=== PATIENT | female | born 1950 | race Caucasian/White ===

== ENCOUNTER → 2018-09-10 11:25 | Outpatient (CLI) | payer OTHER, SELFPAY ==
[2017-03-29 11:01] VITALS: BMI 34.6
[2018-09-10 14:16] LABS: Creatinine, Serum 0.96 mg/dL (0.55-1.02); EST Glomerular Filtration Rate 61 mL/min (>60); Est Glom Filt Rate - Afr Amer 74 mL/min (>60)
== END ==
PROVIDERS: Family Provider Family Medicine; PCP Family Medicine; Referring Provider Specialist; Visit Provider Specialist
DX: M54.16 Radiculopathy, lumbar region (principal)
CPT/HCPCS: 36415; 82565

== ENCOUNTER 2019-05-11 17:41 | Emergency (ER) | payer OTHER, SELFPAY ==
[2019-05-11 17:42] VITALS: BP 174/80; PULSE 70; RESP 16; TEMP 36.8; O2SAT 95; BMI 35.1
--- NOTE | 2019-05-11 18:09 | ED.DCSUM_ITS ---
- ER Visit Summary Date of Service: 05/11/19 Chief Complaint: Right leg pain, weakness, and fatigue History of Present Illness: The patient is a 69 F who presents with right leg pain that is been getting worse since yesterday. Patient states the pain is over her lower leg. Patient states it is worse with walking. Patient describes it as aching. Patient admits to some sweats at home but denies any fevers. Patient denies any chest pain or shortness of breath. Patient denies any nausea or vomiting. Patient states she feels weak all over. Physical Examination: Vital signs are stable. Patient is afebrile. Patient is in no acute distress. Oral mucosa is pink and moist. Neck is supple. Trachea is midline. There is no JVD. Heart was regular rate and rhythm. Lungs are clear and equal bilaterally. Abdomen is soft. Bowel sounds are normal. There is no tenderness. Cranial nerves II through XII are intact. There are no focal motor or sensory deficits noted. Extremities are intact. There is tenderness and edema of the right lower leg. There is some mild erythema but there is no warmth. Test Results: CBC shows a mild anemia with a hemoglobin of 11.9. Basic metabolic profile was essentially within normal limits. Urinalysis does not josé luis w any evidence of urinary tract infection. Troponin was normal. PA and lateral chest x-ray was obtained. There is no acute cardiopulmonary process. This was interpreted by the radiologist and myself. Emergency Department Course and Treatment: Patient was able to ambulate with a walker. Patient was instructed to use her walker at home. Patient was given a dose of Lovenox here. Patient was instructed to return tomorrow for an outpatient venous duplex of her right lower extremity since it was not able to be obtained here in the emergency department. Patient was instructed to follow- up with her primary care physician in 3 to 5 days. Patient and family understood and were agreeable with the plan. All questions were answered. Disposition: Discharge home Impression: Right leg pain This note was generated with Schvey dictation software. It may contain incorrect words, spelling, and punctuation that were not noted in review of the chart prior to signing ED Disposition - Plan for ED Patient: Disposition: Home or Assisted Living Diagnosis: Right leg pain Instructions: CONTUSION, Lower Extremity Referrals: Mikala Ndiaye NP-C [Primary Care Provider] - 3-5 Days
--- NOTE | 2019-05-11 18:44 | RAD_ITS ---
STUDY: X-RAY CHEST REASON FOR EXAM: Female, 69 years old. WEAKNESS TECHNIQUE: Frontal and lateral views of the chest were performed COMPARISON: None. FINDINGS: There is a rounded shell-like calcification in the right lower neck. There is no pneumonia or focal pulmonary opacities. There are linear basilar opacity, likely atelectasis and scarring.. There is no demonstrated pleural abnormality. Normal size heart. Normal mediastinum and migdalia. Normal visualized pulmonary arteries. Normal visualized aortic arch and descending thoracic aorta. There is left reverse total shoulder arthroplasty. There is no demonstrated abnormality of the visualized soft tissue structures of the upper abdomen. RAD/Chest PA and Lateral IMPRESSION: 1. No acute findings, mild atelectasis. 2. Right lower neck peripherally calcified structure, possibly related to thyroid. Refer to neck ultrasonography for further assessment. Electronically Signed: Elli Bran, at 19:18 EST Tel , Service support ,
[2019-05-11 18:50] LABS: Absolute Lymphocyte Count 2.66 X10^3/uL (0.83-4.51); Absolute Neutrophil Count 7.1 X10^3/uL (2.0-7.7); Basophil# 0.03 X10^3/uL; Basophil% 0.3 % (0-1); Eosinophils% 1.9 % (0-5); Hematocrit 37.4 % (37-47); Hemoglobin 11.9 g/dL (12.0-15.0); Lymphocyte # 2.66 X10^3/ul (4.0); Lymphocyte % 24.8 % (19-41); Mean Corp Hgb Conc 31.8 g/dL (32-36); Mean Corpuscular Hgb 28.3 pg (27.0-32.0); Mean Corpuscular Volume 88.8 fL (81-99); Mean Platelet Vol. 10.4 fl (6.2-12.0); Monocyte# 0.71 X10^3/uL; Monocyte% 6.6 % (0-10); NRBC Flagged by Analyzer 0 % (0-5); Neutrophil # 7.08 X10^3/uL (2.7-7.7); Platelet Count 349 K/mm3 (150-450); RBC Distribution Width CV 14.5 % (11.6-14.6); RBC Distribution Width SD 46.3 fl (35.1-43.9); Red Blood Count 4.21 M/mm3 (4.2-5.4); White Blood Count 10.7 K/mm3 (4.4-11.0)
[2019-05-11 19:14] LABS: ALB/GLOB Ratio 0.9 RATIO (0.9-2.4); AST(SGOT) 12 U/L (15-37); Alanine Aminotransfer ALT/SGPT 25 U/L (13-56); Albumin, Serum 3.3 g/dL (3.2-5.0); Alkaline Phosphatase 85 U/L (45-117); Anion Gap 5 (5-15); BUN 29 mg/dL (7-18); BUN/Creat Ratio 26.1 RATIO (10-20); Calcium,Total 9.4 mg/dL (8.5-10.1); Chloride 111 mmol/L (98-107); Creatinine, Serum 1.11 mg/dL (0.55-1.02); EST Glomerular Filtration Rate 52 mL/min (>60); Est Glom Filt Rate - Afr Amer 63 mL/min (>60); Globulin 3.6 g/dL (2.2-4.2); Glucose 169 mg/dL (74-106); Potassium 4.2 mmol/L (3.5-5.1); Protein, Total 6.9 g/dL (6.4-8.2); Sodium Level 143 mmol/L (136-145)
[2019-05-11 20:53] LABS: Bacteria 0 SEEN /hpf (None Seen); Mucous, Urine 0 SEEN /hpf (<or=2+); White Blood Cells 0 SEEN /hpf (0-5)
[2019-05-11 20:55] LABS: Color, Urine Yellow (Yellow); Glucose, Dipstick Normal (Normal); Ketone-Dipstick Negative (Negative); Leukocyte Esterase-Dipstick Negative /ul (Negative); Nitrite-Dipstick Negative (Negative); Occult Blood-Urine 25 /ul (Negative); Protein-Dipstick 100 mg/dl (Negative); Urine Bilirubin Dipstick Negative (Negative); Urine Clarity Sl. Cloudy (Clear); Urine Urobilinogen Normal (Normal)
[2019-05-11 21:05] LABS: Red Blood Cells-Urine 0-5 SEEN /hpf (0-5); Squamous Epithelial Cells - UA 0-5 SEEN /hpf (5-10)
[2019-05-11] MEDS: Enoxaparin 80 MG/0.8 ML Syringe SC (22:58)
[2019-05-11 23:02] VITALS: BP 144/71; PULSE 71; RESP 16; O2SAT 95
== END 2019-05-11 23:11 | disposition home or self-care (01) ==
PROVIDERS: Emergency Provider Emergency Medicine; PCP Nurse Practitioner Family
DX: M79.661 Pain in right lower leg (principal); R53.1 Weakness; R53.83 Other fatigue; I10 Essential (primary) hypertension; E11.9 Type 2 diabetes mellitus without complications; Z79.84 Long term (current) use of oral hypoglycemic drugs
CPT/HCPCS: 71046; 80053; 81001; 84484; 85025; 96372; 99285; P9612; A4216

== ENCOUNTER → 2019-05-12 12:43 | Outpatient (CLI) | payer SELFPAY, OTHER ==
[2019-05-11 17:42] VITALS: BMI 35.1
--- NOTE | 2019-05-12 12:56 | VDLE_ITS ---
Reason For Study: RLE pain RIGHT LEFT GSV is normal. CFV is compressible, spontaneous, phasic, CFV is compressible, spontaneous, phasic, competent, and demonstrates normal competent and demonstrates normal augmentation. augmentation. FV is compressible, spontaneous, phasic, competent and demonstrates normal augmentation. POP V is compressible, spontaneous, phasic, competent and demonstrates normal augmentation. T/P Trunk is compressible. PTV is compressible. RT PerV is compressible. Procedure Exam performed in department. The exam was diagnostic. A preliminary report was called and/or faxed to [facility] @ 01:25 pm. Interpretation Summary Deep veins of the right lower extremity are patent and compressible segmentally. There is no evidence of right lower extremity deep vein thrombosis. Valvular competence appears intact within the proximal deep venous system on the right . The right great saphenous vein appears patent and compressible segmentally. Ordering Physician: Pete Martinez Referring Physician: Mikala Ndiaye Performed By: Danny CHING RDCS, [place] and Student
== END ==
PROVIDERS: PCP Nurse Practitioner Family; Referring Provider Nurse Practitioner Family; Visit Provider Emergency Medicine
DX: M79.604 Pain in right leg (principal)
CPT/HCPCS: 93971

== ENCOUNTER 2020-05-18 19:22 | Inpatient (IN) | payer OTHER, SELFPAY ==
[2020-05-18 17:33] VITALS: RESP 18; BMI 40.8
[2020-05-18 17:49] VITALS: BP 160/82; PULSE 85; RESP 16; TEMP 37.2; O2SAT 94
[2020-05-18 17:55] LABS: Bedside Glucose 319 mg/dL (70-110)
[2020-05-18 18:03] VITALS: BMI 40.8
--- NOTE | 2020-05-18 20:07 | HP.PCM_ITS ---
Problem List (1) Cellulitis of foot, right Status: Acute (2) Cellulitis of great toe, right Status: Acute History of Present Illness Date of Admission: 05/18/20 Chief Complaint: Cellulitis of the right foot, cellulitis of the right great toe The patient is a 70 year old F who was directly admitted to [facility] after being seen [facility] a [facility] with complaints of swelling and redness of her right great toe and redness and warmth extending into her right foot area. Information was obtained from the patient's who was present at the time of my examination, he states that the foot has been swollen and reddened for approximately 1 to 2 weeks. He admits that they did not get her into see her director blood bank concerning this. They were sent to the emergency room for evaluation by her PCP who saw the patient in his office. Work-up in the outside emergency room revealed a white blood cell count of 13.8, chemistry profile was remarkable for glucose of 177 and a BUN of 22, lactic acid was 1.8, urinalysis was unremarkable. Patient had an x-ray of the right foot which showed degenerative changes at the tarsals and a healing fracture of the distal fibula. Patient was admitted to [place] [id number] for cellulitis of the right foot and right great toe, she will be placed on IV Unasyn, she will be seen in consultation by podiatry-I talked with Dr. Dejesus by phone tonight. Past Medical History Allergies pravastatin Adverse Reaction (Verified 05/18/20 17:51) muscle and leg pain Home Medications: Ambulatory Orders Medication Instructions Recorded Atenolol [Tenormin (beta xander)] 25 mg PO DAILY 03/13/17 Lisinopril 40 mg PO QHS 03/13/17 Pramipexole Di-HCl [Mirapex] 0.5 mg PO QHS 03/13/17 metFORMIN HCl [Glucophage] 1,000 mg PO BIDCM 03/13/17 Aspirin [Aspirin, Baby] 81 mg PO DAILY@0800 05/18/20 Furosemide [Lasix] 40 mg PO DAILY 05/18/20 Insulin NPH Hum/Reg Insulin Hm 10 units SQ DINNER 05/18/20 [Humulin 70-30 Vial] Insulin NPH Hum/Reg Insulin Hm 20 units SQ DAILY 05/18/20 [Humulin 70-30 Vial] Potassium Chloride 10 meq PO DAILY 05/18/20 Surgical History: cataract, hysterectomy, total knee arthroplasty - Right, - - Lumbar back surgery Psychiatric History: No pertinent psych hx [employer] History: No pertinent [employer] history Lives: Spouse/ Significant Other Smoking Status: Never smoker Tobacco Use: Non-smoker Alcohol: None Drugs: None - *Family History Maternal History Items: Diabetes Paternal History Items: No pertinent history Review of Systems Constitutional: Denies: Anorexia, Chills, Fever, Night Sweats, Malaise, Weakness, Weight Change, Fatigue Eyes: Denies: Cataracts, Conjunctivae Inflammation, Double vision, Drainage, Redness, Vision Change HEENT: Denies: Difficulty Swallowing, Dysphasia, Ear Pain, Hearing Changes, Nasal bleeding, Nasal Congestion, Post Nasal Drip Cardiovascular: Denies: Chest Pain, Claudication, Chest Pressure, Chest Tightness, Edema, Palpitations Respiratory: Denies: Cough, Hemoptysis, Pleuritic Pain, Shortness of Breath, Shortness of breath at rest, Shortness of breath upon exertion Gastrointestinal: Denies: Abdominal Pain, Constipation, Diarrhea, Hematemesis, Hematochezia, Nausea, Melena, Vomiting Genitourinary: Denies: Dysuria, Frequency, Hematuria, Hesitancy, Urgency Musculoskeletal: Reports: Foot Pain - Right foot and right great toe pain x1 week, Joint Pain - Right great toe pain x1 week, Joint swelling - Right great toe swelling x1 week. Denies: Back Pain, Joint stiffness Skin: Reports: - - Redness and swelling of the right foot and right great toe x1 week. Denies: Dryness, Jaundice, Pruritis Neurological: Denies: Blurred vision, Double vision, Slurred speech, Difficulty swallowing, Focal weakness, Headaches, Numbness, Tingling Psychiatric: Denies: Anxiety, Depression, Homicidal Ideations, Suicidal Ideations Endocrine: Denies: Change in Body Habitus, Heat/ Cold Intolerance, Polydipsia, Polyuria Hematologic/ Lymphatic: Denies: Adenopathy, Anemia, Easy Bruising, Easy Bleeding, Petechiae, Purpura VTE Information - Inpt Only VTE Present on Admission: No VTE Mechan Device Prophylaxis: None VTE Pharm Prophylaxis ordered?: Yes - Physical Exam Vitals/I&O's: Vital Signs Temp Pulse Resp BP Pulse Ox 98.9 F 85 16 160/82 H 94 05/18/20 17:49 05/18/20 17:49 05/18/20 17:49 05/18/20 17:49 05/18/20 17:49 Oxygen Delivery Method Room Air Weight: 91.6 kg Body Mass Index (BMI) 40.8 Finger Stick Blood Glucose 232 Intake and Output for Last 24 Hours 05/16/20 05/17/20 05/18/20 23:59 23:59 23:59 Intake Total 100 / 100 Balance 100 / 100 General: Alert, Oriented x3, Cooperative, No apparent distress, Well developed, Well nourished HEENT: Atraumatic, PERRLA, EOMI, Normocephalic Oral: Moist Mucosa Neck: Supple, No JVD, Negative Carotid Bruits, Trachea Midline, Thyroid Normal Size and Texture Lungs: Clear to auscultation, Normal air movement, No rhonchi, No wheeze, No rales Cardiovascular: Regular rate, Regular Rhythm, Normal S1, Normal S2, No murmurs, PMI Normal, No rub noted, No Gallop Abdomen: Bowel Sounds Present, Soft, Non Tender, Non-Distended, Obese Extremities: No clubbing, No cyanosis, Capillary Refill Less than 3 Seconds, Edema - Neurolysed edema is noted in the lower legs bilaterally, there is marked edema noted in the right foot and right great toe Skin: - - There is noted to be redness and induration of the right foot and right great toe, there is some blanching of the right great toe noted to be present but it is warm to the touch, there is a small eschar at the tip of the patient's right great toe noted if no drainage is noted from the area Neurological: Cranial nerves II-XII grossly intact, Neuro grossly intact, Sensory exam intact to light touch and pain Psych/Mental Status: Normal Affect, Appropriate, Alert and oriented to time, place, person, mood and affect Laboratory Results 05/18/20 17:50: POC Glucose 319 H Current Medications Nystatin (Nystatin Powder 15gm Bottle) 1 applic TOPICAL TID YANG; Protocol Sodium Chloride (0.9% Saline Lock 10 Ml Syringe) 10 - 40 ml IV UD PRN PRN Reason: SALINE FLUSH Assessment/Plan All Active Problems Cellulitis of foot, right (Acute) Cellulitis of great toe, right (Acute) #1 cellulitis of the right great toe and right foot-patient was admitted to [facility], she was placed on IV Unasyn, she will be seen in consultation by podiatry #2 type 2 diabetes-blood sugars will be monitored, patient will be placed on her home insulin, sliding scale insulin will be given as needed #3 morbid obesity #4 hypertension #5 edema of both lower legs-probably chronic in nature, I have decided to increase the patient's Lasix to 40 mg twice daily #6 restless leg syndrome-patient takes Mirapex nightly Inpatient E&M: [id number] Init Hosp L3
[2020-05-18 21:02] VITALS: BP 158/85; PULSE 86
[2020-05-18] MEDS: Furosemide 40 MG Tablet PO (21:03)
[2020-05-18 21:16] LABS: Hemoglobin A1c 8.8 % (3.8-5.6)
[2020-05-18 22:15] VITALS: BP 171/72; PULSE 91; RESP 16; TEMP 37.2; O2SAT 92
[2020-05-18 22:15] LABS: Bedside Glucose 243 mg/dL (70-110)
[2020-05-18] MEDS: Nystatin Powder 15gm Bottle 1 APPLIC TOPICAL (22:28)
[2020-05-18] MEDS: Heparin Injection (Vial) 5,000 UNIT/ML VIAL 5000 UNIT SC (22:29)
[2020-05-18] MEDS: Insulin Lispro 100 UNIT/ML INSULN.PEN SC (22:34)
[2020-05-18] MEDS: 0.9% Saline Lock 10 ML Syringe IV (22:35)
[2020-05-18] MEDS: Pramipexole Di-HCl 0.5 MG Tablet PO (22:37)
[2020-05-18] MEDS: Lisinopril 40 MG Tablet PO (22:37)
[2020-05-19] VITALS (11 sets, daily range): BP systolic 128–188; BP diastolic 55–85; PULSE 70–102; RESP 16–20; TEMP 36.7–37.8; O2SAT 85–97
[2020-05-19] MEDS: 0.9% Saline Lock 10 ML Syringe IV ×4 (00:48→23:04)
--- NOTE | 2020-05-19 01:14 | PCS.PANDOC ---
PANDEMIC DOCUMENTATION INITIATED: Date: 05/18/20 Time: 1899
[2020-05-19] MEDS: Ondansetron 4 MG/2 ML Vial IV (02:05)
[2020-05-19 02:31] LABS: Bedside Glucose 267 mg/dL (70-110)
[2020-05-19] MEDS: hydrALAZINE 20 MG/ML Vial IV (02:37)
[2020-05-19 05:50] LABS: Absolute Lymphocyte Count 1.18 X10^3/uL (0.83-4.51); Absolute Neutrophil Count 10.6 X10^3/uL (2.0-7.7); Basophil# 0.03 X10^3/uL; Basophil% 0.2 % (0-1); Eosinophil# 0.12 X10^3/uL; Hematocrit 33.5 % (37-47); Hemoglobin 10.7 g/dL (12.0-15.0); Lymphocyte # 1.18 X10^3/ul (4.0); Lymphocyte % 9.4 % (19-41); Mean Corp Hgb Conc 31.9 g/dL (32-36); Mean Corpuscular Hgb 27.6 pg (27.0-32.0); Mean Corpuscular Volume 86.3 fL (81-99); Mean Platelet Vol. 10.4 fl (6.2-12.0); Monocyte# 0.56 X10^3/uL; Monocyte% 4.4 % (0-10); NRBC Flagged by Analyzer 0 % (0-5); Neutrophil # 10.61 X10^3/uL (2.7-7.7); Neutrophil % 84.3 % (47-70); Platelet Count 361 K/mm3 (150-450); RBC Distribution Width CV 14.2 % (11.6-14.6); RBC Distribution Width SD 44.5 fl (35.1-43.9); Red Blood Count 3.88 M/mm3 (4.2-5.4); White Blood Count 12.6 K/mm3 (4.4-11.0)
[2020-05-19 06:16] LABS: Anion Gap 6 (5-15); BUN 19 mg/dL (7-18); BUN/Creat Ratio 17.1 RATIO (10-20); Calcium,Total 8.3 mg/dL (8.5-10.1); Chloride 103 mmol/L (98-107); Creatinine, Serum 1.11 mg/dL (0.55-1.02); EST Glomerular Filtration Rate 52 mL/min (>60); Est Glom Filt Rate - Afr Amer 62 mL/min (>60); Glucose 348 mg/dL (74-106); Potassium 4.2 mmol/L (3.5-5.1); Sodium Level 136 mmol/L (136-145)
--- NOTE | 2020-05-19 06:36 | PCM.CONS.GEN ---
Problem List (1) Cellulitis of great toe, right Status: Acute Reason for Consult Date of Consultation: 05/19/20 Reason for Consultation: R great toe wound History of Present Illness: The patient is a 70 year old F [] Past Medical History Allergies pravastatin Adverse Reaction (Verified 05/18/20 17:51) muscle and leg pain Home Medications: Ambulatory Orders Medication Instructions Recorded Atenolol [Tenormin (beta xander)] 25 mg PO DAILY 03/13/17 Lisinopril 40 mg PO QHS 03/13/17 Pramipexole Di-HCl [Mirapex] 0.5 mg PO QHS 03/13/17 metFORMIN HCl [Glucophage] 1,000 mg PO BIDCM 03/13/17 Aspirin [Aspirin, Baby] 81 mg PO DAILY@0800 05/18/20 Furosemide [Lasix] 40 mg PO DAILY 05/18/20 Insulin NPH Hum/Reg Insulin Hm 10 units SQ DINNER 05/18/20 [Humulin 70-30 Vial] Insulin NPH Hum/Reg Insulin Hm 20 units SQ DAILY 05/18/20 [Humulin 70-30 Vial] Potassium Chloride 10 meq PO DAILY 05/18/20 Surgical History: cataract, hysterectomy, total knee arthroplasty - Right, - - Lumbar back surgery Psychiatric History: No pertinent psych hx 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 She had stated that she was feeling okay. But had been vomiting recently. She states that her foot was feeling fine and she was not really having much pain. Patient had mentioned that the wound had been there for a couple of weeks and she and her have been watching it. They have presented to her primary care doctor and he had placed her on antibiotics when that had failed, she had been encouraged to report to the emergency department. Objective: Patient is known to me from my private office where she had last been seen December 2019 for partial traumatic avulsion of the right hallux which resulted in infection. It was treated with removal of the hallux nail and antibiotics. She had gone on to heal uneventfully. The patient then had never returned to the office for other pedal complaints. - Physical Exam Vitals/I&O's: Vital Signs Temp Pulse Resp BP Pulse Ox 99.1 F 97 16 146/69 H 95 05/19/20 02:20 05/19/20 04:35 05/19/20 02:20 05/19/20 04:35 05/19/20 02:20 Oxygen Flow Rate (L/min) 2 Oxygen Delivery Method Nasal Cannula Weight: 91.6 kg Body Mass Index (BMI) 40.8 Finger Stick Blood Glucose 232 Intake and Output for Last 24 Hours 05/17/20 05/18/20 05/19/20 23:59 23:59 23:59 Intake Total 600 / 600 112 / 112 Output Total 800 / 800 200 / 200 Balance -200 / -200 -88 / -88 General: Alert, Oriented x3, Cooperative, No apparent distress Skin: Ulcer/ Wound - Right hallux at the distal plantar tip has necrotic wound. With pickups and scissors the surrounding nonviable tissue was removed to show a wound with 100% fibrous base. Malodor and mild thick yellow purulence was noted. The wound is able to be probed to bone but no bone is visible. 2.0 x 1.5 cm Musculoskeletal: - - Weakness is noted to right foot against dorsiflexion as patient has remote history of CVA with right-sided weakness. Lymphatic: - - Moderate lymphedema is noted to bilateral lower extremities with sparse hair growth. Pedal pulses are minimally palpable secondary to the lymphedema. Neurological: Clonus, - - Sensation is diminished to lower extremities which results in wound secondary to diabetes mellitus. Laboratory Results 05/18/20 17:50: POC Glucose 319 H 05/18/20 20:48: Hemoglobin A1c 8.8 H 05/18/20 22:14: POC Glucose 243 H 05/19/20 02:18: POC Glucose 267 H 05/19/20 05:34: WBC 12.6 H, RBC 3.88 L, Hgb 10.7 L, Hct 33.5 L, MCV 86.3, MCH 27.6, MCHC 31.9 L, RDW Std Deviation 44.5 H, RDW Coeff of Manas 14.2, Plt Count 361, MPV 10.4, Immature Gran % (Auto) 0.700, Neut % (Auto) 84.3 H, Lymph % (Auto) 9.4 L, Burnet % (Auto) 4.4, Eos % (Auto) 1.0, Baso % (Auto) 0.2, Absolute Neuts (auto) 10.6 H, Absolute Lymphs (auto) 1.18, Nucleated RBC % 0 05/19/20 05:34: Sodium 136, Potassium 4.2, Chloride 103, Carbon Dioxide 27.0, Anion Gap 6, BUN 19 H, Creatinine 1.11 H, Estim Creat Clear Calc 68.20, Est GFR (MDRD) Af Amer 62, Est GFR (MDRD) Non-Af 52 L, BUN/Creatinine Ratio 17.1, Glucose 348 H, Calcium 8.3 L Current Medications Acetaminophen (Acetaminophen 325 Mg Tablet) 650 mg PO Q6H PRN PRN PRN Reason: Pain Score 1-10/Temp > 100.7 F Aspirin (Aspirin 81 Mg Tab.Chew) 81 mg PO DAILY [facility] Atenolol (Atenolol 25 Mg Tablet) 25 mg PO DAILY [facility] Calcium Carbonate (Calcium Carbonate 500 Mg Tablet) 500 - 1,000 mg PO Q6H PRN PRN PRN Reason: HEARTBURN OR INDIGESTION Furosemide (Furosemide 40 Mg Tablet) 40 mg PO BID@1000,1800 [facility] Heparin Sodium (Porcine) (Heparin Injection (Vial) 5,000 Unit/Ml Vial) 5,000 unit SC Q12 [facility] Last Admin: 05/18/20 22:29 Dose: 5,000 unit Documented by: Ampicillin Sodium/Sulbactam (Sodium 3 gm/ Sodium Chloride) 112 mls @ 150 mls/hr IV Q6 [facility] Last Infusion: 05/19/20 01:33 Dose: Infused Documented by: Insulin Human Lispro (Insulin Lispro 100 Unit/Ml Insuln.Pen) 0 unit SC ACHS [facility]; Protocol Last Admin: 05/18/20 22:34 Dose: 4 u Documented by: Insulin Lispro Protam/Lispro Human (Insulin Human 75/25 [place]) 10 unit SC DINNER [facility] Insulin Lispro Protam/Lispro Human (Insulin Human 75/25 [place]) 20 unit SC BREAKFAST [facility] Lisinopril (Lisinopril 40 Mg Tablet) 40 mg PO QHS [facility] Last Admin: 05/18/20 22:37 Dose: 40 mg Documented by: Metformin HCl (Metformin Hcl 1,000 Mg Tablet) 1,000 mg PO BIDCM [facility] Nystatin (Nystatin Powder 15gm Bottle) 1 applic TOPICAL TID [facility]; Protocol Last Admin: 05/18/20 22:28 Dose: 1 applicatio Documented by: Ondansetron HCl (Ondansetron 4 Mg/2 Ml Vial) 4 mg IV Q8H PRN PRN PRN Reason: NAUSEA/VOMITING Last Admin: 05/19/20 02:05 Dose: 4 mg Documented by: Oxycodone HCl (Oxycodone 5 Mg Tablet) 5 mg PO Q4H PRN PRN PRN Reason: Pain Score 4-5 Oxycodone HCl (Oxycodone 5 Mg Tablet) 10 mg PO Q4H PRN PRN PRN Reason: Pain Score 6-10 Potassium Chloride (Potassium Chloride 20 Meq Tablet) 20 meq PO BIDCM [facility] Pramipexole Dihydrochloride (Pramipexole Di-Hcl 0.5 Mg Tablet) 0.5 mg PO QHS [facility] Last Admin: 05/18/20 22:37 Dose: 0.5 mg Documented by: Sodium Chloride (0.9% Saline Lock 10 Ml Syringe) 10 - 40 ml IV UD PRN PRN Reason: SALINE FLUSH Last Admin: 05/19/20 02:38 Dose: 10 ml Documented by: Temazepam (Temazepam 15 Mg Capsule) 15 mg PO QHS PRN PRN PRN Reason: INSOMNIA Assessment/Plan All Active Problems Cellulitis of foot, right (Acute) Cellulitis of great toe, right (Acute) Assessment #1. Cellulitis right lower extremity 2. Necrotic right hallux 3. Diabetes mellitus with peripheral neuropathy 4. Lymphedema bilateral lower extremities 5. 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 Wound was debrided selectively utilizing pickups and scissors. Patient tolerated procedure well. Discussed findings with patient and will await culture results as they were performed today. Wound scrubbed with Betadine and should be continued. Podiatry will continue to follow. Thank you for consultation. Radiographs show no sign of significant bony destruction secondary to infection so we will try to treat this medically.
[2020-05-19 06:50] LABS: Bedside Glucose 335 mg/dL (70-110)
[2020-05-19] MEDS: Nystatin Powder 15gm Bottle 1 APPLIC TOPICAL ×3 (06:55→22:38)
[2020-05-19] MEDS: Insulin Human 75/25 Kwickpen 20 UNIT SC (08:08)
[2020-05-19] MEDS: Insulin Lispro 100 UNIT/ML INSULN.PEN SC ×4 (08:09→22:35)
[2020-05-19] MEDS: metFORMIN HCl 1,000 MG Tablet 1000 MG PO ×2 (08:09→17:05)
--- NOTE | 2020-05-19 08:50 | NURSING ---
0800 [facility] Lead Recreation Assistant notified assigned RN Diana of abnormal vital signs. David GUTIÉRREZ
[2020-05-19] MEDS: Aspirin 81 MG TAB.CHEW PO (09:47)
[2020-05-19] MEDS: Heparin Injection (Vial) 5,000 UNIT/ML VIAL 5000 UNIT SC ×2 (09:47→22:38)
[2020-05-19] MEDS: Furosemide 40 MG Tablet PO ×2 (09:47→18:34)
[2020-05-19] MEDS: Atenolol 25 MG Tablet PO (09:48)
--- NOTE | 2020-05-19 11:09 | PN_ITS ---
Patient Problems: Active and Suspected Problems Cellulitis of foot, right (Acute) Cellulitis of great toe, right (Acute) Subjective: Patient seen and examined. She was admitted with a complaint of swelling and redness as well as warmth of the right great toe extending to her right foot. Symptoms had been going on for ~ 2 weeks. She is being manged for cellulitis of the right big toe. She is on IV unasyn. Podiatry consulted. She had no complaints today. Pain was well controlled in right great toe. Per her nurse, patient had been vomiting several times this morning. She denies any urinary symptoms. Patient was a bit lethargic during review this morning. Vitals/I&O's: Vital Signs Temp Pulse Resp BP Pulse Ox 98.1 F 98 20 H 158/84 H 92 05/19/20 08:20 05/19/20 08:20 05/19/20 08:20 05/19/20 08:20 05/19/20 08:20 Oxygen Flow Rate (L/min) 2 Oxygen Delivery Method Room Air Weight: 201 lb 15.095 oz Body Mass Index (BMI) 40.8 Finger Stick Blood Glucose 232 Intake and Output for Last 24 Hours 05/17/20 05/18/20 05/19/20 23:59 23:59 23:59 Intake Total 600 / 600 424 / 424 Output Total 800 / 800 550 / 550 Balance -200 / -200 -126 / -126 General: Alert, Oriented x3, Cooperative, Lethargic HEENT: Atraumatic, PERRLA, EOMI, Normocephalic Oral: Dry Mucosa Neck: Supple, No JVD, Negative Carotid Bruits Lungs: Clear to auscultation, Normal air movement Cardiovascular: Regular rate, Regular Rhythm, Normal S1, Normal S2, No murmurs Abdomen: Bowel Sounds Present, Soft, Non Tender Extremities: No clubbing, No cyanosis, No edema, Capillary Refill Less than 3 Seconds Skin: - - right great toe markedly swollen, erythematous, oozing pus, mildly tender to touch Musculoskeletal: No Tenderness to Palpation of Joints or Extremities Lymphatic: No Cervical, Supraclavicular, or Inguinal Adenopathy Neurological: Cranial nerves II-XII grossly intact, Neuro grossly intact, Motor Exam 5/5 strength throughout Psych/Mental Status: Normal Affect, Appropriate, Alert and oriented to time, place, person, mood and affect Laboratory Results 05/18/20 17:50: POC Glucose 319 H 05/18/20 20:48: Hemoglobin A1c 8.8 H 05/18/20 22:14: POC Glucose 243 H 05/19/20 02:18: POC Glucose 267 H 05/19/20 05:34: WBC 12.6 H, RBC 3.88 L, Hgb 10.7 L, Hct 33.5 L, MCV 86.3, MCH 27.6, MCHC 31.9 L, RDW Std Deviation 44.5 H, RDW Coeff of Manas 14.2, Plt Count 361, MPV 10.4, Immature Gran % (Auto) 0.700, Neut % (Auto) 84.3 H, Lymph % (Auto) 9.4 L, [place] % (Auto) 4.4, Eos % (Auto) 1.0, Baso % (Auto) 0.2, Absolute Neuts (auto) 10.6 H, Absolute Lymphs (auto) 1.18, Nucleated RBC % 0 05/19/20 05:34: Sodium 136, Potassium 4.2, Chloride 103, Carbon Dioxide 27.0, Anion Gap 6, BUN 19 H, Creatinine 1.11 H, Estim Creat Clear Calc 68.20, Est GFR (MDRD) Af Amer 62, Est GFR (MDRD) Non-Af 52 L, BUN/Creatinine Ratio 17.1, Glucose 348 H, Calcium 8.3 L 05/19/20 06:47: POC Glucose 335 H Current Medications Acetaminophen (Acetaminophen 325 Mg Tablet) 650 mg PO Q6H PRN PRN PRN Reason: Pain Score 1-10/Temp > 100.7 F Aspirin (Aspirin 81 Mg Tab.Chew) 81 mg PO DAILY [facility] Last Admin: 05/19/20 09:47 Dose: 81 mg Documented by: Atenolol (Atenolol 25 Mg Tablet) 25 mg PO DAILY [facility] Last Admin: 05/19/20 09:48 Dose: 25 mg Documented by: Calcium Carbonate (Calcium Carbonate 500 Mg Tablet) 500 - 1,000 mg PO Q6H PRN PRN PRN Reason: HEARTBURN OR INDIGESTION Furosemide (Furosemide 40 Mg Tablet) 40 mg PO BID@1000,1800 [facility] Last Admin: 05/19/20 09:47 Dose: 40 mg Documented by: Heparin Sodium (Porcine) (Heparin Injection (Vial) 5,000 Unit/Ml Vial) 5,000 unit SC Q12 [facility] Last Admin: 05/19/20 09:47 Dose: 5,000 unit Documented by: Ampicillin Sodium/Sulbactam (Sodium 3 gm/ Sodium Chloride) 112 mls @ 150 mls/hr IV Q6 [facility] Last Infusion: 05/19/20 07:45 Dose: Infused Documented by: Insulin Human Lispro (Insulin Lispro 100 Unit/Ml Insuln.Pen) 0 unit SC ACHS [facility]; Protocol Last Admin: 05/19/20 08:09 Dose: 8 u Documented by: Insulin Lispro Protam/Lispro Human (Insulin Human 75/25 [place]) 10 unit SC DINNER [facility] Insulin Lispro Protam/Lispro Human (Insulin Human 75/25 [place]) 20 unit SC BREAKFAST [facility] Last Admin: 05/19/20 08:08 Dose: 20 u Documented by: Lisinopril (Lisinopril 40 Mg Tablet) 40 mg PO QHS [facility] Last Admin: 05/18/20 22:37 Dose: 40 mg Documented by: Metformin HCl (Metformin Hcl 1,000 Mg Tablet) [facility] Last Admin: 05/19/20 08:09 Dose: 1,000 mg Documented by: Nystatin (Nystatin Powder 15gm Bottle) 1 applic TOPICAL TID [facility]; Protocol Last Admin: 05/19/20 06:55 Dose: 1 applicatio Documented by: Ondansetron HCl (Ondansetron 4 Mg/2 Ml Vial) 4 mg IV Q8H PRN PRN PRN Reason: NAUSEA/VOMITING Last Admin: 05/19/20 02:05 Dose: 4 mg Documented by: Oxycodone HCl (Oxycodone 5 Mg Tablet) 5 mg PO Q4H PRN PRN PRN Reason: Pain Score 4-5 Oxycodone HCl (Oxycodone 5 Mg Tablet) 10 mg PO Q4H PRN PRN PRN Reason: Pain Score 6-10 Potassium Chloride (Potassium Chloride 20 Meq Tablet) [facility]q [facility] Last Admin: 05/19/20 09:47 Dose: 20 meq Documented by: Pramipexole Dihydrochloride (Pramipexole Di-Hcl 0.5 Mg Tablet) 0.5 mg PO QHS [facility] Last Admin: 05/18/20 22:37 Dose: 0.5 mg Documented by: Sodium Chloride (0.9% Saline Lock 10 Ml Syringe) 10 - 40 ml IV UD PRN PRN Reason: SALINE FLUSH Last Admin: 05/19/20 02:38 Dose: 10 ml Documented by: Temazepam (Temazepam 15 Mg Capsule) 15 mg PO QHS PRN PRN PRN Reason: INSOMNIA STROKE Vital Signs/Narrative: Vital Signs Temp Pulse Resp BP Pulse Ox 05/19/20 08:20 98.1 F 98 20 H 158/84 H 92 05/19/20 07:40 99.1 F 102 H 18 181/78 H 96 Medical Necessity - Tobacco Use Smoking Status: Never smoker Tobacco Use: Non-smoker Assessment/Plan All Active Problems Cellulitis of foot, right (Acute) Cellulitis of great toe, right (Acute) #Cellulitis of the right great toe * wbc is 12.6 today * On IV unasyn * podiatry on board * had bedside debridement done today. cultures pedning * xrays showed no evidence of significant bony destruction, so per podiatry, for conservative management for now * PT/OT on board. wound care on board * #Vomiting, likely due to gastroparesis * patient has a history of poorly controlled diabetes mellitus * A1C:8.8 * will check urinalysis, and start on metoclorpromide for now. * IV zofran. * hydrate gently with IVF * # Type 2 diabetes mellitus * On Metformin and NPH insulin 20 units with breakfast and 10 units atnight * ISS. Accuchecks ACHS * #Hypertension: on lisinopril. IV hydralazine prn #Morbid obesity: complicates acute care, expected recovery adn prognosis # Restless leg syndrome: on mirapex #Lower extremity edema: chronic. on lasix. * DVT prophylaxis: lovenox Inpatient E&M: 24692 Subs Hosp L3
--- NOTE | 2020-05-19 11:15 | RAD_ITS ---
STUDY: X-RAY - ABDOMEN/PELVIS REASON FOR EXAM: Female, 70 years old. Emesis Patient unable to communicate any hx or answer any questions. TECHNIQUE: AP supine and decubitus views of the abdomen and pelvis. COMPARISON: None. FINDINGS: There is a moderate amount of colonic fecal material. There is no demonstrated free abdominal air. The visualized liver, spleen and kidneys are grossly normal in size and morphology. There are calcified phleboliths in the pelvis. Prior laminectomy and fusion of the lower lumbar spine. RAD/Abd Decub and/or Erect(Portabl IMPRESSION: Moderate amount of fecal material is seen in the colon. Electronically Signed: Chapincito Rogers MD at 12:31 EST , Service support ,
[2020-05-19 11:50] LABS: Bedside Glucose 276 mg/dL (70-110)
[2020-05-19 12:57] LABS: Bacteria 0 SEEN /hpf (None Seen); Mucous, Urine 0 SEEN /hpf (<or=2+); Red Blood Cells-Urine 0 SEEN /hpf (0-5); White Blood Cells 0 SEEN /hpf (0-5)
--- NOTE | 2020-05-19 13:05 | CASEMGMT ---
MARLA DAVIS Face to Face with patient for initial transition planning/care coordination assessment. RN CM introduced self and role at [facility]. Patient lying in bed, alert and oriented, at bedside. Patient and willing to participate in assessment and is able to answer all questions appropriately. Care providers, pharmacy, and demographics verified, answering questions for patient. wishes for patient to discharge home, with possible HHC. states he has no further needs or concerns at this time. CM to follow for discharge planning needs that may arise. 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 Patient requires assistance at home for ADLs. Transportation: Driving service DME/HHC: Patient has shower chair, grab bars, wheel chair, walker, glucometer and testing supplies. Patient has had [facility] in the past. Disposition Plan: Patient to discharge home with family support and follow-up plans in place. Will monitor for need for HHC. Rhina ROSEN, RN, CM
[2020-05-19 13:06] LABS: Color, Urine Yellow (Yellow); Glucose, Dipstick 250 mg/dl (Normal); Ketone-Dipstick 5 mg/dl (Negative); Leukocyte Esterase-Dipstick Negative /ul (Negative); Nitrite-Dipstick Negative (Negative); Occult Blood-Urine 10 /ul (Negative); Protein-Dipstick 100 mg/dl (Negative); Urine Bilirubin Dipstick Negative (Negative); Urine Clarity Clear (Clear); Urine Urobilinogen Normal (Normal)
[2020-05-19 13:12] LABS: Squamous Epithelial Cells - UA 0-5 SEEN /hpf (5-10)
[2020-05-19] MEDS: Acetaminophen 325 MG Tablet 650 MG PO (14:46)
[2020-05-19 16:40] LABS: Bedside Glucose 251 mg/dL (70-110)
[2020-05-19] MEDS: Insulin Human 75/25 Kwickpen 10 UNIT SC (17:07)
[2020-05-19] MEDS: Polyethylene Glycol 3350 17 GM PACKET PO (22:31)
[2020-05-19] MEDS: Povidone-Iodine Swabstick 1 PACKET TOPICAL (22:36)
[2020-05-19] MEDS: Senna/Docusate Sodium 1 Tablet PO (22:37)
[2020-05-19] MEDS: Lisinopril 40 MG Tablet PO (22:39)
[2020-05-19] MEDS: Pramipexole Di-HCl 0.5 MG Tablet PO (22:39)
[2020-05-19 23:42] LABS: Bedside Glucose 183 mg/dL (70-110)
[2020-05-20] VITALS (8 sets, daily range): BP systolic 141–170; BP diastolic 59–75; PULSE 61–103; RESP 16–18; TEMP 36.4–37.2; O2SAT 90–97
[2020-05-20 05:47] LABS: Absolute Lymphocyte Count 2.13 X10^3/uL (0.83-4.51); Absolute Neutrophil Count 7.2 X10^3/uL (2.0-7.7); Basophil# 0.03 X10^3/uL; Basophil% 0.3 % (0-1); Eosinophil# 0.96 X10^3/uL; Eosinophils% 8.7 % (0-5); Hemoglobin 9.5 g/dL (12.0-15.0); Lymphocyte # 2.13 X10^3/ul (4.0); Lymphocyte % 19.3 % (19-41); Mean Corp Hgb Conc 30.6 g/dL (32-36); Mean Corpuscular Hgb 27.1 pg (27.0-32.0); Mean Corpuscular Volume 88.6 fL (81-99); Mean Platelet Vol. 10.4 fl (6.2-12.0); Monocyte# 0.66 X10^3/uL; NRBC Flagged by Analyzer 0 % (0-5); Neutrophil # 7.19 X10^3/uL (2.7-7.7); Platelet Count 350 K/mm3 (150-450); RBC Distribution Width CV 14.5 % (11.6-14.6); RBC Distribution Width SD 46.5 fl (35.1-43.9); White Blood Count 11.1 K/mm3 (4.4-11.0)
[2020-05-20 06:13] LABS: Anion Gap 5 (5-15); BUN 25 mg/dL (7-18); BUN/Creat Ratio 19.7 RATIO (10-20); Calcium,Total 8.3 mg/dL (8.5-10.1); Chloride 106 mmol/L (98-107); Creatinine, Serum 1.27 mg/dL (0.55-1.02); EST Glomerular Filtration Rate 44 mL/min (>60); Est Glom Filt Rate - Afr Amer 53 mL/min (>60); Glucose 226 mg/dL (74-106); Potassium 4.2 mmol/L (3.5-5.1); Sodium Level 140 mmol/L (136-145)
[2020-05-20] MEDS: Nystatin Powder 15gm Bottle 1 APPLIC TOPICAL ×3 (06:23→22:07)
[2020-05-20] MEDS: Insulin Lispro 100 UNIT/ML INSULN.PEN SC ×3 (06:27→16:03)
[2020-05-20 06:35] LABS: Bedside Glucose 229 mg/dL (70-110)
--- NOTE | 2020-05-20 07:51 | PCM.PN.HOSP ---
Patient Problems: Active and Suspected Problems Cellulitis of foot, right (Acute) Cellulitis of great toe, right (Acute) Subjective: Patient seen and examined. She remains lethargic. She also occasional desaturation on room air and had to be placed on 2 L of oxygen yesterday. Review of systems otherwise negative. She has remained afebrile and WBC has trended down slightly to 11.1. Vitals/I&O's: Vital Signs Temp Pulse Resp BP Pulse Ox 97.7 F L 70 16 150/67 H 97 05/20/20 03:01 05/20/20 03:01 05/20/20 03:01 05/20/20 03:01 05/20/20 03:01 Oxygen Flow Rate (L/min) 2 Oxygen Delivery Method Nasal Cannula Weight: 201 lb 15.095 oz Body Mass Index (BMI) 40.8 Finger Stick Blood Glucose 232 Intake and Output for Last 24 Hours 05/18/20 05/19/20 05/20/20 23:59 23:59 23:59 Intake Total 600 / 600 2470 / 2470 462 / 462 Output Total 800 / 800 2200 / 2200 700 / 700 Balance -200 / -200 270 / 270 -238 / -238 General: Alert, Oriented x3, Cooperative, Lethargic HEENT: Atraumatic, PERRLA, EOMI, Normocephalic Oral: Dry Mucosa Neck: Supple, No JVD, Negative Carotid Bruits Lungs: Clear to auscultation, Normal air movement Cardiovascular: Regular rate, Regular Rhythm, Normal S1, Normal S2, No murmurs Abdomen: Bowel Sounds Present, Soft, Non Tender Extremities: No clubbing, No cyanosis, No edema, Capillary Refill Less than 3 Seconds Skin: - - right great toe markedly swollen, erythematous, oozing pus, mildly tender to touch Musculoskeletal: No Tenderness to Palpation of Joints or Extremities Lymphatic: No Cervical, Supraclavicular, or Inguinal Adenopathy Neurological: Cranial nerves II-XII grossly intact, Neuro grossly intact, Motor Exam 5/5 strength throughout Psych/Mental Status: flat affect Microbiology Past 72 Hours 05/19/20 06:30 Wound - Toe Gram Stain - Final Laboratory Results 05/19/20 11:46: POC Glucose 276 H 05/19/20 12:45: Urine Color Yellow, Urine Clarity Clear, Urine pH 7.0, Ur Specific [place] 1.010, Urine Protein 100 H, Urine Glucose (UA) 250 H, Urine Ketones 5 H, Urine Occult Blood 10 H, Urine Nitrite Negative, Urine Bilirubin Negative, Urine Urobilinogen Normal, Ur Leukocyte Esterase Negative, Urine RBC 0 SEEN, Urine WBC 0 SEEN, Ur Squamous Epith Cells 0-5 SEEN, Urine Bacteria 0 SEEN, Urine Mucus 0 SEEN 05/19/20 16:36: POC Glucose 251 H 05/19/20 22:29: POC Glucose 183 H 05/20/20 05:25: WBC 11.1 H, RBC 3.50 L, Hgb 9.5 L, Hct 31.0 L, MCV 88.6, MCH 27.1, MCHC 30.6 L, RDW Std Deviation 46.5 H, RDW Coeff of Manas 14.5, Plt Count 350, MPV 10.4, Immature Gran % (Auto) 0.700, Neut % (Auto) 65.0, Lymph % (Auto) 19.3, [place] % (Auto) 6.0, Eos % (Auto) 8.7 H, Baso % (Auto) 0.3, Absolute Neuts (auto) 7.2, Absolute Lymphs (auto) 2.13, Nucleated RBC % 0 05/20/20 05:25: Sodium 140, Potassium 4.2, Chloride 106, Carbon Dioxide 29.0, Anion Gap 5, BUN 25 H, Creatinine 1.27 H, Estim Creat Clear Calc 59.60, Est GFR (MDRD) Af Amer 53 L, Est GFR (MDRD) Non-Af 44 L, BUN/Creatinine Ratio 19.7, Glucose 226 H, Calcium 8.3 L 05/20/20 06:26: POC Glucose 229 H Current Medications Acetaminophen (Acetaminophen 325 Mg Tablet) 650 mg PO Q6H PRN PRN PRN Reason: Pain Score 1-10/Temp > 100.7 F Last Admin: 05/19/20 14:46 Dose: 650 mg Documented by: Aspirin (Aspirin 81 Mg Tab.Chew) 81 mg PO DAILY [facility] Last Admin: 05/19/20 09:47 Dose: 81 mg Documented by: Atenolol (Atenolol 25 Mg Tablet) 25 mg PO DAILY [facility] Last Admin: 05/19/20 09:48 Dose: 25 mg Documented by: Calcium Carbonate (Calcium Carbonate 500 Mg Tablet) 500 - 1,000 mg PO Q6H PRN PRN PRN Reason: HEARTBURN OR INDIGESTION Furosemide (Furosemide 40 Mg Tablet) 40 mg PO BID@1000,1800 [facility] Last Admin: 05/19/20 18:34 Dose: 40 mg Documented by: Heparin Sodium (Porcine) (Heparin Injection (Vial) 5,000 Unit/Ml Vial) 5,000 unit SC Q12 [facility] Last Admin: 05/19/20 22:38 Dose: 5,000 unit Documented by: Ampicillin Sodium/Sulbactam (Sodium 3 gm/ Sodium Chloride) 112 mls @ 150 mls/hr IV Q6 [facility] Last Infusion: 05/20/20 07:07 Dose: Infused Documented by: Insulin Human Lispro (Insulin Lispro 100 Unit/Ml Insuln.Pen) 0 unit SC ACHS [facility]; Protocol Last Admin: 05/20/20 06:27 Dose: 4 u Documented by: Insulin Lispro Protam/Lispro Human (Insulin Human 75/25 [place]) 10 unit SC DINNER [facility] Last Admin: 05/19/20 17:07 Dose: 10 u Documented by: Insulin Lispro Protam/Lispro Human (Insulin Human 75/25 [place]) 20 unit SC BREAKFAST [facility] Last Admin: 05/19/20 08:08 Dose: 20 u Documented by: Lisinopril (Lisinopril 40 Mg Tablet) 40 mg PO QHS [facility] Last Admin: 05/19/20 22:39 Dose: 40 mg Documented by: Metformin HCl (Metformin Hcl 1,000 Mg Tablet) 1,000 mg PO BIDCM [facility] Last Admin: 05/19/20 17:05 Dose: 1,000 mg Documented by: Nystatin (Nystatin Powder 15gm Bottle) 1 applic TOPICAL TID [facility]; Protocol Last Admin: 05/20/20 06:23 Dose: 1 applicatio Documented by: Ondansetron HCl (Ondansetron 4 Mg/2 Ml Vial) 4 mg IV Q8H PRN PRN PRN Reason: NAUSEA/VOMITING Last Admin: 05/19/20 02:05 Dose: 4 mg Documented by: Oxycodone HCl (Oxycodone 5 Mg Tablet) 5 mg PO Q4H PRN PRN PRN Reason: Pain Score 4-5 Oxycodone HCl (Oxycodone 5 Mg Tablet) 10 mg PO Q4H PRN PRN PRN Reason: Pain Score 6-10 Polyethylene Glycol (Polyethylene Glycol 3350 17 Gm Packet) 17 gm PO BID [facility] Last Admin: 05/19/20 22:31 Dose: 17 gm Documented by: Potassium Chloride ([facility] 20 [facility]) [facility] Admin: 05/19/20 17:09 Dose: 20 meq Documented by: Povidone Iodine (Povidone-Iodine Swabstick) 1 packet TOPICAL BID [facility]; Protocol Last Admin: 05/19/20 22:36 Dose: 1 packet Documented by: Pramipexole Dihydrochloride (Pramipexole Di-Hcl 0.5 Mg Tablet) 0.5 mg PO QHS [facility] Last Admin: 05/19/20 22:39 Dose: 0.5 mg Documented by: Senna/Docusate Sodium (Senna/Docusate Sodium 1 Tablet) 1 tablet PO BID [facility] Last Admin: 05/19/20 22:37 Dose: 1 tablet Documented by: Sodium Chloride (0.9% Saline Lock 10 Ml Syringe) 10 - 40 ml IV UD PRN PRN Reason: SALINE FLUSH Last Admin: 05/19/20 23:04 Dose: 10 ml Documented by: Temazepam (Temazepam 15 Mg Capsule) 15 mg PO QHS PRN PRN PRN Reason: INSOMNIA Medical Necessity - Tobacco Use Smoking Status: Never smoker Tobacco Use: Non-smoker Assessment/Plan All Active Problems Cellulitis of foot, right (Acute) Cellulitis of great toe, right (Acute) #Cellulitis of the right great toe wbc is down to 11.1 today On IV unasyn podiatry on board had bedside debridement done, cultures pending xrays showed no evidence of significant bony destruction, so per podiatry, for conservative management for now PT/OT on board. wound care on board #Vomiting, likely due to gastroparesis patient has a history of poorly controlled diabetes mellitus A1C:8.8 UA showed no evidence of UTI vomiting has improved. # Type 2 diabetes mellitus On Metformin and NPH insulin 20 units with breakfast and 10 units atnight ISS. Accuchecks ACHS #Hypertension: on lisinopril. IV hydralazine prn #Morbid obesity: complicates acute care, expected recovery and prognosis # Restless leg syndrome: on mirapex #Lower extremity edema: chronic. on lasix. DVT prophylaxis: lovenox Inpatient E&M: [id number] Subs Hosp L2
[2020-05-20] MEDS: metFORMIN HCl 1,000 MG Tablet 1000 MG PO ×2 (08:20→17:27)
[2020-05-20] MEDS: Insulin Human 75/25 Kwickpen 20 UNIT SC (08:21)
[2020-05-20] MEDS: Senna/Docusate Sodium 1 Tablet PO ×2 (09:03→22:07)
[2020-05-20] MEDS: Atenolol 25 MG Tablet PO (09:03)
[2020-05-20] MEDS: Aspirin 81 MG TAB.CHEW PO (09:03)
[2020-05-20] MEDS: Polyethylene Glycol 3350 17 GM PACKET PO ×2 (09:03→22:07)
[2020-05-20] MEDS: Heparin Injection (Vial) 5,000 UNIT/ML VIAL 5000 UNIT SC ×2 (09:03→22:07)
[2020-05-20] MEDS: Furosemide 40 MG Tablet PO ×2 (09:04→17:27)
[2020-05-20] MEDS: Povidone-Iodine Swabstick 1 PACKET TOPICAL (09:37)
[2020-05-20 11:46] LABS: Bedside Glucose 185 mg/dL (70-110)
[2020-05-20] MEDS: Ondansetron 4 MG/2 ML Vial IV (13:01)
[2020-05-20 16:30] LABS: Bedside Glucose 169 mg/dL (70-110)
--- NOTE | 2020-05-20 17:20 | PCM.PROGNOTE ---
Patient Problems: Active and Suspected Problems Cellulitis of foot, right (Acute) Cellulitis of great toe, right (Acute) Subjective: Patient was resting comfortably in her bed with her at her side, she states that she is feeling much better. Objective: Patient is resting comfortably in her bed dressing intact. Emesis bag is by her side but she did not seem to feel ill while I was in the room. Dressing was intact and the wound base was still necrotic with thick yellow-brown drainage and significant malodor. Cellulitis was resolving both to the toe as well as to the anterior right lower leg. With pickups and scissors the wound was selectively debrided, mild bleeding was controlled with compression. Most of the necrotic tissue was able to be removed to reveal healthy tissue. Bone was not visible but was able to be probed. The wound was then washed with soap and rinsed with normal sterile saline. The malodor was then noted to be resolved. Wound had healthy bleeding base. Patient experienced no pain during treatment today. - Physical Exam Vitals/I&O's: Vital Signs Temp Pulse Resp BP Pulse Ox 99 F 68 16 141/59 H 96 05/20/20 14:18 05/20/20 14:18 05/20/20 14:18 05/20/20 14:18 05/20/20 14:18 Oxygen Flow Rate (L/min) 2 Oxygen Delivery Method Nasal Cannula Weight: 91.6 kg Body Mass Index (BMI) 40.8 Finger Stick Blood Glucose 232 Intake and Output for Last 24 Hours 05/18/20 05/19/20 05/20/20 23:59 23:59 23:59 Intake Total 600 / 600 2470 / 2470 924 / 924 Output Total 800 / 800 2200 / 2200 1050 / 1050 Balance -200 / -200 270 / 270 -126 / -126 General: Alert, Oriented x3, Cooperative, No apparent distress Skin: Ulcer/ Wound - Right hallux wound measures 1.3 x 1.3 x 1.2 cm. Microbiology Past 72 Hours 05/19/20 06:30 Wound - Toe Gram Stain - Final 05/19/20 06:30 Wound - Toe Wound Culture - Preliminary Gram negative reagan Alpha Hemolytic Streptococcus Laboratory Results 05/19/20 22:29: POC Glucose 183 H 05/20/20 05:25: WBC 11.1 H, RBC 3.50 L, Hgb 9.5 L, Hct 31.0 L, MCV 88.6, MCH 27.1, MCHC 30.6 L, RDW Std Deviation 46.5 H, RDW Coeff of Manas 14.5, Plt Count 350, MPV 10.4, Immature Gran % (Auto) 0.700, Neut % (Auto) 65.0, Lymph % (Auto) 19.3, [place] % (Auto) 6.0, Eos % (Auto) 8.7 H, Baso % (Auto) 0.3, Absolute Neuts (auto) 7.2, Absolute Lymphs (auto) 2.13, Nucleated RBC % 0 05/20/20 05:25: Sodium 140, Potassium 4.2, Chloride 106, Carbon Dioxide 29.0, Anion Gap 5, BUN 25 H, Creatinine 1.27 H, Estim Creat Clear Calc 59.60, Est GFR (MDRD) Af Amer 53 L, Est GFR (MDRD) Non-Af 44 L, BUN/Creatinine Ratio 19.7, Glucose 226 H, Calcium 8.3 L 05/20/20 06:26: POC Glucose 229 H 05/20/20 11:35: POC Glucose 185 H 05/20/20 16:01: POC Glucose 169 H Current Medications Acetaminophen (Acetaminophen 325 Mg Tablet) 650 mg PO Q6H PRN PRN PRN Reason: Pain Score 1-10/Temp > 100.7 F Last Admin: 05/19/20 14:46 Dose: 650 mg Documented by: Aspirin (Aspirin 81 Mg Tab.Chew) 81 mg PO DAILY [facility] Last Admin: 05/20/20 09:03 Dose: 81 mg Documented by: Atenolol (Atenolol 25 Mg Tablet) 25 mg PO DAILY [facility] Last Admin: 05/20/20 09:03 Dose: 25 mg Documented by: Calcium Carbonate (Calcium Carbonate 500 Mg Tablet) 500 - 1,000 mg PO Q6H PRN PRN PRN Reason: HEARTBURN OR INDIGESTION Furosemide (Furosemide 40 Mg Tablet) 40 mg PO BID@1000,1800 [facility] Last Admin: 05/20/20 09:04 Dose: 40 mg Documented by: Heparin Sodium (Porcine) (Heparin Injection (Vial) 5,000 Unit/Ml Vial) 5,000 unit SC Q12 [facility] Last Admin: 05/20/20 09:03 Dose: 5,000 unit Documented by: Ampicillin Sodium/Sulbactam (Sodium 3 gm/ Sodium Chloride) 112 mls @ 150 mls/hr IV Q6 [facility] Last Infusion: 05/20/20 12:40 Dose: Infused Documented by: Insulin Human Lispro (Insulin Lispro 100 Unit/Ml Insuln.Pen) 0 unit SC ACHS [facility]; Protocol Last Admin: 05/20/20 16:03 Dose: 2 u Documented by: Insulin Lispro Protam/Lispro Human (Insulin Human 75/25 [place]) 10 unit SC DINNER [facility] Last Admin: 05/19/20 17:07 Dose: 10 u Documented by: Insulin Lispro Protam/Lispro Human (Insulin Human 75/25 [place]) 20 unit SC BREAKFAST [facility] Last Admin: 05/20/20 08:21 Dose: 20 u Documented by: Lisinopril (Lisinopril 40 Mg Tablet) 40 mg PO QHS [facility] Last Admin: 05/19/20 22:39 Dose: 40 mg Documented by: Metformin HCl (Metformin Hcl 1,000 Mg Tablet) [facility] Last Admin: 05/20/20 08:20 Dose: 1,000 mg Documented by: Nystatin (Nystatin Powder 15gm Bottle) 1 applic TOPICAL TID [facility]; Protocol Last Admin: 05/20/20 16:03 Dose: 1 applicatio Documented by: Ondansetron HCl (Ondansetron 4 Mg/2 Ml Vial) 4 mg IV Q8H PRN PRN PRN Reason: NAUSEA/VOMITING Last Admin: 05/20/20 13:01 Dose: 4 mg Documented by: Oxycodone HCl (Oxycodone 5 Mg Tablet) 5 mg PO Q4H PRN PRN PRN Reason: Pain Score 4-5 Oxycodone HCl (Oxycodone 5 Mg Tablet) 10 mg PO Q4H PRN PRN PRN Reason: Pain Score 6-10 Polyethylene Glycol (Polyethylene Glycol 3350 17 Gm Packet) 17 gm PO BID [facility] Last Admin: 05/20/20 09:03 Dose: 17 gm Documented by: Potassium Chloride (Potassium Chloride 20 Meq Tablet) 20 meq PO BIDCM [facility] Last Admin: 05/20/20 08:20 Dose: 20 meq Documented by: Povidone Iodine (Povidone-Iodine Swabstick) 1 packet TOPICAL BID [facility]; Protocol Last Admin: 05/20/20 09:37 Dose: 1 packet Documented by: Pramipexole Dihydrochloride (Pramipexole Di-Hcl 0.5 Mg Tablet) 0.5 mg PO QHS [facility] Last Admin: 05/19/20 22:39 Dose: 0.5 mg Documented by: Senna/Docusate Sodium (Senna/Docusate Sodium 1 Tablet) 1 tablet PO BID [facility] Last Admin: 05/20/20 09:03 Dose: 1 tablet Documented by: Sodium Chloride (0.9% Saline Lock 10 Ml Syringe) 10 - 40 ml IV UD PRN PRN Reason: SALINE FLUSH Last Admin: 05/19/20 23:04 Dose: 10 ml Documented by: Temazepam (Temazepam 15 Mg Capsule) 15 mg PO QHS PRN PRN PRN Reason: INSOMNIA Medical Necessity - Tobacco Use Smoking Status: Never smoker Tobacco Use: Non-smoker Assessment/Plan All Active Problems Cellulitis of foot, right (Acute) Cellulitis of great toe, right (Acute) Assessment #1. Cellulitis right lower extremity 2. Necrotic right hallux wound 3. Diabetes mellitus with peripheral neuropathy 4. Lymphedema bilateral lower extremities 5. 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 Wound was debrided selectively utilizing pickups and scissors. Patient tolerated procedure well. Discussed findings with patient and will await culture results. Patient's white cell count continues to trend downward. Hopefully today's more aggressive debridement will improve those results as well. Wound packed with Aquacel Ag and dressed with dry sterile gauze. Podiatry to continue to follow and discussed with patient that once her white cell count is within normal limits, we would be fine with her discharge home. Hospitalist recommendations would be needed as well.
[2020-05-20] MEDS: Insulin Human 75/25 Kwickpen 10 UNIT SC (17:28)
[2020-05-20] MEDS: Pramipexole Di-HCl 0.5 MG Tablet PO (22:07)
[2020-05-20] MEDS: Lisinopril 40 MG Tablet PO (22:08)
[2020-05-20 22:20] LABS: Bedside Glucose 124 mg/dL (70-110)
[2020-05-20] MEDS: Calcium Carbonate 500 MG Tablet PO (23:19)
[2020-05-21 02:20] VITALS: BP 142/58; PULSE 62; RESP 18; TEMP 37; O2SAT 96
[2020-05-21] MEDS: Nystatin Powder 15gm Bottle 1 APPLIC TOPICAL ×3 (05:19→22:09)
--- NOTE | 2020-05-21 06:31 | PCM.PROGNOTE ---
Patient Problems: Active and Suspected Problems Cellulitis of foot, right (Acute) Cellulitis of great toe, right (Acute) Subjective: Patient was resting comfortably with dressing intact to right toe. She stated that she was feeling a little better today. Objective: Right toe was dressed with Aquacel Ag and gauze. Wound peels help appears healthier and malodor is completely resolved again today. However, there was some mild amount of necrotic yellow-pastor tissue that was removed with sharp debridement bedside. Mild bleeding was easily controlled with compression. Vitas continues to improve as well as patient's white cell count continues to trend downward. - Physical Exam Vitals/I&O's: Vital Signs Temp Pulse Resp BP Pulse Ox 98.6 F 62 18 142/58 H 96 05/21/20 02:20 05/21/20 02:20 05/21/20 02:20 05/21/20 02:20 05/21/20 02:20 Oxygen Flow Rate (L/min) 2 Oxygen Delivery Method Nasal Cannula Weight: 91.6 kg Body Mass Index (BMI) 40.8 Finger Stick Blood Glucose 232 Intake and Output for Last 24 Hours 05/19/20 05/20/20 05/21/20 23:59 23:59 23:59 Intake Total 2470 / 2470 1386 / 1386 224 / 224 Output Total 2200 / 2200 1800 / 1800 300 / 300 Balance 270 / 270 -414 / -414 -76 / -76 General: Oriented x3, Cooperative, No apparent distress Skin: Ulcer/ Wound - No malodor. 1.5 x 1.5 x 1.3 cm. Can probe to bone but bone is not visible. Less necrotic tissue today and more granular tissue. Microbiology Past 72 Hours 05/19/20 06:30 Wound - Toe Gram Stain - Final 05/19/20 06:30 Wound - Toe Wound Culture - Preliminary Gram negative reagan Alpha Hemolytic Streptococcus Laboratory Results 05/20/20 06:26: POC Glucose 229 H 05/20/20 11:35: POC Glucose 185 H 05/20/20 16:01: POC Glucose 169 H 05/20/20 22:03: POC Glucose 124 H Current Medications Acetaminophen (Acetaminophen 325 Mg Tablet) 650 mg PO Q6H PRN PRN PRN Reason: Pain Score 1-10/Temp > 100.7 F Last Admin: 05/19/20 14:46 Dose: 650 mg Documented by: Aspirin (Aspirin 81 Mg Tab.Chew) 81 mg PO DAILY [facility] Last Admin: 05/20/20 09:03 Dose: 81 mg Documented by: Atenolol (Atenolol 25 Mg Tablet) 25 mg PO DAILY [facility] Last Admin: 05/20/20 09:03 Dose: 25 mg Documented by: Calcium Carbonate (Calcium Carbonate 500 Mg Tablet) 500 - 1,000 mg PO Q6H PRN PRN PRN Reason: HEARTBURN OR INDIGESTION Last Admin: 05/20/20 23:19 Dose: 500 mg Documented by: Furosemide (Furosemide 40 Mg Tablet) 40 mg PO BID@1000,1800 [facility] Last Admin: 05/20/20 17:27 Dose: 40 mg Documented by: Heparin Sodium (Porcine) (Heparin Injection (Vial) 5,000 Unit/Ml Vial) 5,000 unit SC Q12 [facility] Last Admin: 05/20/20 22:07 Dose: 5,000 unit Documented by: Ampicillin Sodium/Sulbactam (Sodium 3 gm/ Sodium Chloride) 112 mls @ 150 mls/hr IV Q6 [facility] Last Infusion: 05/21/20 06:04 Dose: Infused Documented by: Insulin Human Lispro (Insulin Lispro 100 Unit/Ml Insuln.Pen) 0 unit SC ACHS [facility]; Protocol Last Admin: 05/20/20 22:12 Dose: Not Given Documented by: Insulin Lispro Protam/Lispro Human (Insulin Human 75/25 Kwickpen) 10 unit SC DINNER [facility] Last Admin: 05/20/20 17:28 Dose: 10 u Documented by: Insulin Lispro Protam/Lispro Human (Insulin Human 75/25 Kwickpen) 20 unit SC BREAKFAST [facility] Last Admin: 05/20/20 08:21 Dose: 20 u Documented by: Lisinopril (Lisinopril 40 Mg Tablet) 40 mg PO QHS [facility] Last Admin: 05/20/20 22:08 Dose: 40 mg Documented by: Metformin HCl (Metformin Hcl 1,000 Mg Tablet) 1,000 mg PO BIDCM [facility] Last Admin: 05/20/20 17:27 Dose: 1,000 mg Documented by: Nystatin (Nystatin Powder 15gm Bottle) 1 applic TOPICAL TID [facility]; Protocol Last Admin: 05/21/20 05:19 Dose: 1 applicatio Documented by: Ondansetron HCl (Ondansetron 4 Mg/2 Ml Vial) 4 mg IV Q8H PRN PRN PRN Reason: NAUSEA/VOMITING Last Admin: 05/20/20 13:01 Dose: 4 mg Documented by: Oxycodone HCl (Oxycodone 5 Mg Tablet) 5 mg PO Q4H PRN PRN PRN Reason: Pain Score 4-5 Oxycodone HCl (Oxycodone 5 Mg Tablet) 10 mg PO Q4H PRN PRN PRN Reason: Pain Score 6-10 Polyethylene Glycol (Polyethylene Glycol 3350 17 Gm Packet) 17 gm PO BID [facility] Last Admin: 05/20/20 22:07 Dose: 17 gm Documented by: Potassium Chloride (Potassium Chloride 20 Meq Tablet) [facility] Last Admin: 05/20/20 17:27 Dose: 20 meq Documented by: Povidone Iodine (Povidone-Iodine Swabstick) 1 packet TOPICAL BID [facility]; Protocol Last Admin: 05/20/20 22:16 Dose: Not Given Documented by: Pramipexole Dihydrochloride (Pramipexole Di-Hcl 0.5 Mg Tablet) 0.5 mg PO QHS [facility] Last Admin: 05/20/20 22:07 Dose: 0.5 mg Documented by: Senna/Docusate Sodium (Senna/Docusate Sodium 1 Tablet) 1 tablet PO BID [facility] Last Admin: 05/20/20 22:07 Dose: 1 tablet Documented by: Sodium Chloride (0.9% Saline Lock 10 Ml Syringe) 10 - 40 ml IV UD PRN PRN Reason: SALINE FLUSH Last Admin: 05/19/20 23:04 Dose: 10 ml Documented by: Temazepam (Temazepam 15 Mg Capsule) 15 mg PO QHS PRN PRN PRN Reason: INSOMNIA Medical Necessity - Tobacco Use Smoking Status: Never smoker Tobacco Use: Non-smoker Assessment/Plan All Active Problems Cellulitis of foot, right (Acute) Cellulitis of great toe, right (Acute) Assessment #1. Cellulitis right lower extremity 2. Necrotic right hallux wound 3. Diabetes mellitus with peripheral neuropathy 4. Lymphedema bilateral lower extremities 5. 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 Wound was debrided selectively utilizing pickups and scissors. Patient tolerated procedure well. Discussed findings with patient and will await final culture results. Patient's white cell count continues to trend downward. Wound packed with Aquacel Ag and dressed with dry sterile gauze. Podiatry to continue to follow and discussed with patient that once her white cell count is within normal limits, we would be fine with her discharge home. Hospitalist recommendations would be needed as well. Upon discharge, patient should follow up in my private office.
[2020-05-21 06:42] LABS: Absolute Lymphocyte Count 2.29 X10^3/uL (0.83-4.51); Absolute Neutrophil Count 5.9 X10^3/uL (2.0-7.7); Basophil# 0.05 X10^3/uL; Basophil% 0.5 % (0-1); Eosinophil# 1.09 X10^3/uL; Eosinophils% 10.8 % (0-5); Hematocrit 32.7 % (37-47); Lymphocyte # 2.29 X10^3/ul (4.0); Lymphocyte % 22.8 % (19-41); Mean Corp Hgb Conc 30.6 g/dL (32-36); Mean Corpuscular Hgb 27.3 pg (27.0-32.0); Mean Corpuscular Volume 89.3 fL (81-99); Mean Platelet Vol. 10.4 fl (6.2-12.0); Monocyte# 0.68 X10^3/uL; Monocyte% 6.8 % (0-10); NRBC Flagged by Analyzer 0 % (0-5); Neutrophil # 5.88 X10^3/uL (2.7-7.7); Neutrophil % 58.5 % (47-70); Platelet Count 358 K/mm3 (150-450); Red Blood Count 3.66 M/mm3 (4.2-5.4); White Blood Count 10.1 K/mm3 (4.4-11.0)
[2020-05-21 07:15] LABS: Anion Gap 6 (5-15); BUN 20 mg/dL (7-18); BUN/Creat Ratio 17.1 RATIO (10-20); Calcium,Total 8.6 mg/dL (8.5-10.1); Chloride 105 mmol/L (98-107); Creatinine, Serum 1.17 mg/dL (0.55-1.02); EST Glomerular Filtration Rate 49 mL/min (>60); Est Glom Filt Rate - Afr Amer 59 mL/min (>60); Glucose 191 mg/dL (74-106); Potassium 4.2 mmol/L (3.5-5.1); Sodium Level 140 mmol/L (136-145)
[2020-05-21 07:45] LABS: Bedside Glucose 220 mg/dL (70-110)
--- NOTE | 2020-05-21 07:45 | PN_ITS ---
Patient Problems: Active and Suspected Problems Cellulitis of foot, right (Acute) Cellulitis of great toe, right (Acute) Subjective: Patient seen and examined. She has no complaints and she has remained hemodynamically stable. She remains on 2L of oxygen. Wbc is down to 10.1. She had bedside debridement yesterday again. Vitals/I&O's: Vital Signs Temp Pulse Resp BP Pulse Ox 98.6 F 62 18 142/58 H 96 05/21/20 02:20 05/21/20 02:20 05/21/20 02:20 05/21/20 02:20 05/21/20 02:20 Oxygen Flow Rate (L/min) 2 Oxygen Delivery Method Nasal Cannula Weight: 201 lb 15.095 oz Body Mass Index (BMI) 40.8 Finger Stick Blood Glucose 232 Intake and Output for Last 24 Hours 05/19/20 05/20/20 05/21/20 23:59 23:59 23:59 Intake Total 2470 / 2470 1386 / 1386 224 / 224 Output Total 2200 / 2200 1800 / 1800 300 / 300 Balance 270 / 270 -414 / -414 -76 / -76 General: Alert, Oriented x3, Cooperative, Lethargic HEENT: Atraumatic, PERRLA, EOMI, Normocephalic Oral: Dry Mucosa Neck: Supple, No JVD, Negative Carotid Bruits Lungs: Clear to auscultation, Normal air movement Cardiovascular: Regular rate, Regular Rhythm, Normal S1, Normal S2, No murmurs Abdomen: Bowel Sounds Present, Soft, Non Tender Extremities: No clubbing, No cyanosis, No edema, Capillary Refill Less than 3 Seconds Skin: - - right foot wrapped in bandage Musculoskeletal: No Tenderness to Palpation of Joints or Extremities Lymphatic: No Cervical, Supraclavicular, or Inguinal Adenopathy Neurological: Cranial nerves II-XII grossly intact, Neuro grossly intact, Motor Exam 5/5 strength throughout Psych/Mental Status: flat affect Microbiology Past 72 Hours 05/19/20 06:30 Wound - Toe Gram Stain - Final 05/19/20 06:30 Wound - Toe Wound Culture - Preliminary Gram negative reagan Alpha Hemolytic Streptococcus Laboratory Results 05/20/20 11:35: POC Glucose 185 H 05/20/20 16:01: POC Glucose 169 H 05/20/20 22:03: POC Glucose 124 H 05/21/20 06:16: WBC 10.1, RBC 3.66 L, Hgb 10.0 L, Hct 32.7 L, MCV 89.3, MCH 27.3, MCHC 30.6 L, RDW Std Deviation 46.0 H, RDW Coeff of Manas 14.0, Plt Count 358, MPV 10.4, Immature Gran % (Auto) 0.600, Neut % (Auto) 58.5, Lymph % (Auto) 22.8, [place] % (Auto) 6.8, Eos % (Auto) 10.8 H, Baso % (Auto) 0.5, Absolute Neuts (auto) 5.9, Absolute Lymphs (auto) 2.29, Nucleated RBC % 0 05/21/20 06:16: Sodium 140, Potassium 4.2, Chloride 105, Carbon Dioxide 29.0, Anion Gap 6, BUN 20 H, Creatinine 1.17 H, Estim Creat Clear Calc 64.70, Est GFR (MDRD) Af Amer 59 L, Est GFR (MDRD) Non-Af 49 L, BUN/Creatinine Ratio 17.1, Glucose 191 H, Calcium 8.6 05/21/20 07:38: POC Glucose 220 H Current Medications Acetaminophen (Acetaminophen 325 Mg Tablet) 650 mg PO Q6H PRN PRN PRN Reason: Pain Score 1-10/Temp > 100.7 F Last Admin: 05/19/20 14:46 Dose: 650 mg Documented by: Aspirin (Aspirin 81 Mg Tab.Chew) 81 mg PO DAILY [facility] Last Admin: 05/20/20 09:03 Dose: 81 mg Documented by: Atenolol (Atenolol 25 Mg Tablet) 25 mg PO DAILY [facility] Last Admin: 05/20/20 09:03 Dose: 25 mg Documented by: Calcium Carbonate (Calcium Carbonate 500 Mg Tablet) 500 - 1,000 mg PO Q6H PRN PRN PRN Reason: HEARTBURN OR INDIGESTION Last Admin: 05/20/20 23:19 Dose: 500 mg Documented by: Furosemide (Furosemide 40 Mg Tablet) 40 mg PO BID@1000,1800 [facility] Last Admin: 05/20/20 17:27 Dose: 40 mg Documented by: Heparin Sodium (Porcine) (Heparin Injection (Vial) 5,000 Unit/Ml Vial) 5,000 unit SC Q12 [facility] Last Admin: 05/20/20 22:07 Dose: 5,000 unit Documented by: Ampicillin Sodium/Sulbactam (Sodium 3 gm/ Sodium Chloride) 112 mls @ 150 mls/hr IV Q6 [facility] Last Infusion: 05/21/20 06:04 Dose: Infused Documented by: Insulin Human Lispro (Insulin Lispro 100 Unit/Ml Insuln.Pen) 0 unit SC ACHS [facility]; Protocol Last Admin: 05/20/20 22:12 Dose: Not Given Documented by: Insulin Lispro Protam/Lispro Human (Insulin Human 75/25 Kwickpen) 10 unit SC DINNER [facility] Last Admin: 05/20/20 17:28 Dose: 10 u Documented by: Insulin Lispro Protam/Lispro Human (Insulin Human 75/25 Kwickpen) 20 unit SC BREAKFAST [facility] Last Admin: 05/20/20 08:21 Dose: 20 u Documented by: Lisinopril (Lisinopril 40 Mg Tablet) 40 mg PO QHS [facility] Last Admin: 05/20/20 22:08 Dose: 40 mg Documented by: Metformin HCl (Metformin Hcl 1,000 Mg Tablet) [facility] Last Admin: 05/20/20 17:27 Dose: 1,000 mg Documented by: Nystatin (Nystatin Powder 15gm Bottle) 1 applic TOPICAL TID [facility]; Protocol Last Admin: 05/21/20 05:19 Dose: 1 applicatio Documented by: Ondansetron HCl (Ondansetron 4 Mg/2 Ml Vial) 4 mg IV Q8H PRN PRN PRN Reason: NAUSEA/VOMITING Last Admin: 05/20/20 13:01 Dose: 4 mg Documented by: Oxycodone HCl (Oxycodone 5 Mg Tablet) 5 mg PO Q4H PRN PRN PRN Reason: Pain Score 4-5 Oxycodone HCl (Oxycodone 5 Mg Tablet) 10 mg PO Q4H PRN PRN PRN Reason: Pain Score 6-10 Polyethylene Glycol (Polyethylene Glycol 3350 17 Gm Packet) 17 gm PO BID [facility] Last Admin: 05/20/20 22:07 Dose: 17 gm Documented by: Potassium Chloride (Potassium Chloride 20 Meq Tablet) 20 meq PO BIDCM [facility] Last Admin: 05/20/20 17:27 Dose: 20 meq Documented by: Povidone Iodine (Povidone-Iodine Swabstick) 1 packet TOPICAL BID [facility]; Protocol Last Admin: 05/20/20 22:16 Dose: Not Given Documented by: Pramipexole Dihydrochloride (Pramipexole Di-Hcl 0.5 Mg Tablet) 0.5 mg PO QHS [facility] Last Admin: 05/20/20 22:07 Dose: 0.5 mg Documented by: Senna/Docusate Sodium (Senna/Docusate Sodium 1 Tablet) 1 tablet PO BID [facility] Last Admin: 05/20/20 22:07 Dose: 1 tablet Documented by: Sodium Chloride (0.9% Saline Lock 10 Ml Syringe) 10 - 40 ml IV UD PRN PRN Reason: SALINE FLUSH Last Admin: 05/19/20 23:04 Dose: 10 ml Documented by: Temazepam (Temazepam 15 Mg Capsule) 15 mg PO QHS PRN PRN PRN Reason: INSOMNIA Medical Necessity - Tobacco Use Smoking Status: Never smoker Tobacco Use: Non-smoker Assessment/Plan All Active Problems Cellulitis of foot, right (Acute) Cellulitis of great toe, right (Acute) #Cellulitis of the right great toe * wbc is down to 10.1 today * On IV unasyn * podiatry on board * had bedside debridement don again yesterday; cultures pending * xrays showed no evidence of significant bony destruction, so per podiatry, for conservative management for now * PT/OT on board. wound care on board * #Vomiting, likely due to gastroparesis * patient has a history of poorly controlled diabetes mellitus * A1C:8.8 * # Type 2 diabetes mellitus * On Metformin and NPH insulin 20 units with breakfast and 10 units atnight * ISS. Accuchecks ACHS * #Hypertension: on lisinopril. IV hydralazine prn #Morbid obesity: complicates acute care, expected recovery and prognosis # Restless leg syndrome: on mirapex #Lower extremity edema: chronic. on lasix. * DVT prophylaxis: lovenox Inpatient E&M: 36483 Subs Hosp L2
[2020-05-21 08:17] VITALS: O2SAT 94
[2020-05-21 08:35] VITALS: BP 144/54; PULSE 60; RESP 20; TEMP 37.1; O2SAT 96
[2020-05-21] MEDS: Insulin Lispro 100 UNIT/ML INSULN.PEN SC ×4 (09:10→22:08)
[2020-05-21] MEDS: metFORMIN HCl 1,000 MG Tablet 1000 MG PO ×2 (09:12→16:07)
[2020-05-21] MEDS: Insulin Human 75/25 Kwickpen 20 UNIT SC (09:13)
[2020-05-21] MEDS: Aspirin 81 MG TAB.CHEW PO (09:15)
[2020-05-21] MEDS: Heparin Injection (Vial) 5,000 UNIT/ML VIAL 5000 UNIT SC ×2 (09:16→22:08)
[2020-05-21] MEDS: Furosemide 40 MG Tablet PO ×2 (09:19→16:07)
[2020-05-21] MEDS: Senna/Docusate Sodium 1 Tablet PO ×2 (09:20→22:09)
[2020-05-21] MEDS: Polyethylene Glycol 3350 17 GM PACKET PO ×2 (09:20→22:08)
[2020-05-21] MEDS: Atenolol 25 MG Tablet PO (09:20)
[2020-05-21 10:04] VITALS: PULSE 90
[2020-05-21 11:21] LABS: Bedside Glucose 240 mg/dL (70-110)
--- NOTE | 2020-05-21 11:50 | CASEMGMT ---
MARLA DAVIS NOTE: Anticipate pt will be ready for discharge tomorrow. PT/OT notes have been reviewed. MARLA DAVIS to room to discuss discharge planning. Pt sitting up in recliner chair in room. @ bedside. states he wishes to take pt home and would like [facility] in the home, as pt has had this in the past. states he observed Dr Dejesus change dressing to pt's foot/toe last evening and he feels comfortable with doing this @ home. He plans to f/u @ Dr Dejesus's office. He declines need for [facility] for detention for wound care/dressing changes/teaching/diabetic teaching. He did ask for diabetic menu for meal planning. Call placed to Marlee administrative appeals tribunal member, and she was made aware and states will have someone come do teaching/talk with /pt. Dietary consult is in. MARLA DAVIS faxed referral to [facility] and spoke w/Danae @ [facility]. They are able to accept pt and they will bill pt/. MARLA DAVIS updated pt/ regarding home therapy setup through [facility]. He denies having any other needs/concerns/questions re: discharge planning. Serge ROSEN RN, CM
[2020-05-21 15:34] VITALS: BP 136/54; PULSE 74; RESP 18; TEMP 37.3; O2SAT 92
[2020-05-21] MEDS: Insulin Human 75/25 Kwickpen 10 UNIT SC (16:05)
[2020-05-21 17:11] LABS: Bedside Glucose 216 mg/dL (70-110)
[2020-05-21 20:40] VITALS: BP 157/83; PULSE 76; RESP 18; TEMP 37.4; O2SAT 94
[2020-05-21] MEDS: Pramipexole Di-HCl 0.5 MG Tablet PO (22:08)
[2020-05-21] MEDS: Lisinopril 40 MG Tablet PO (22:09)
[2020-05-21 22:35] LABS: Bedside Glucose 246 mg/dL (70-110)
[2020-05-22 02:40] VITALS: BP 148/56; PULSE 73; RESP 18; TEMP 36.6; O2SAT 94
[2020-05-22] MEDS: Nystatin Powder 15gm Bottle 1 APPLIC TOPICAL ×2 (05:38→14:50)
[2020-05-22 07:11] LABS: Absolute Lymphocyte Count 1.59 X10^3/uL (0.83-4.51); Absolute Neutrophil Count 8.9 X10^3/uL (2.0-7.7); Basophil# 0.05 X10^3/uL; Basophil% 0.4 % (0-1); Eosinophil# 0.39 X10^3/uL; Eosinophils% 3.3 % (0-5); Hematocrit 34.6 % (37-47); Hemoglobin 10.8 g/dL (12.0-15.0); Lymphocyte # 1.59 X10^3/ul (4.0); Lymphocyte % 13.5 % (19-41); Mean Corp Hgb Conc 31.2 g/dL (32-36); Mean Corpuscular Hgb 27.3 pg (27.0-32.0); Mean Corpuscular Volume 87.4 fL (81-99); Mean Platelet Vol. 10.1 fl (6.2-12.0); Monocyte# 0.68 X10^3/uL; Monocyte% 5.8 % (0-10); NRBC Flagged by Analyzer 0 % (0-5); Neutrophil # 8.93 X10^3/uL (2.7-7.7); Neutrophil % 75.8 % (47-70); Platelet Count 383 K/mm3 (150-450); RBC Distribution Width CV 13.8 % (11.6-14.6); RBC Distribution Width SD 44.1 fl (35.1-43.9); Red Blood Count 3.96 M/mm3 (4.2-5.4); White Blood Count 11.8 K/mm3 (4.4-11.0)
[2020-05-22 07:40] VITALS: O2SAT 96
[2020-05-22 07:42] LABS: Anion Gap 5 (5-15); BUN 22 mg/dL (7-18); BUN/Creat Ratio 15.8 RATIO (10-20); Calcium,Total 8.3 mg/dL (8.5-10.1); Chloride 102 mmol/L (98-107); Creatinine, Serum 1.39 mg/dL (0.55-1.02); EST Glomerular Filtration Rate 40 mL/min (>60); Est Glom Filt Rate - Afr Amer 48 mL/min (>60); Estimated Creatinine Clearance 54.46 ml/min; Glucose 292 mg/dL (74-106); Potassium 4.3 mmol/L (3.5-5.1); Sodium Level 138 mmol/L (136-145)
[2020-05-22 07:44] VITALS: BP 155/61; PULSE 72; RESP 18; TEMP 36.9; O2SAT 92
[2020-05-22] MEDS: Insulin Lispro 100 UNIT/ML INSULN.PEN SC ×2 (07:48→11:32)
[2020-05-22] MEDS: metFORMIN HCl 1,000 MG Tablet 1000 MG PO (07:49)
[2020-05-22] MEDS: Insulin Human 75/25 Kwickpen 20 UNIT SC (07:50)
[2020-05-22 08:01] LABS: Bedside Glucose 317 mg/dL (70-110)
[2020-05-22] MEDS: Aspirin 81 MG TAB.CHEW PO (10:09)
[2020-05-22] MEDS: Heparin Injection (Vial) 5,000 UNIT/ML VIAL 5000 UNIT SC (10:09)
[2020-05-22] MEDS: Furosemide 40 MG Tablet PO (10:10)
[2020-05-22] MEDS: Senna/Docusate Sodium 1 Tablet PO (10:10)
[2020-05-22] MEDS: Atenolol 25 MG Tablet PO (10:10)
[2020-05-22 11:45] LABS: Bedside Glucose 159 mg/dL (70-110)
--- NOTE | 2020-05-22 13:34 | PCM.DC ---
- Discharge Diagnoses Current Active Problems: Current Active and Chronic Problems Cellulitis of foot, right (Acute) Cellulitis of great toe, right (Acute) You will use the following diet at home:: Calorie/Carbohydrate Controlled (specify 1200, 1400, etc) - 1800 calories Your food should be the consistency of: Regular Your liquids should be the consistency of: Regular/Thin Discharge Activity: Return to Normal Activity Weight Bearing Status: Weight bearing as tolerated Call your doctor if your incision/area has: Continuous Slow Oozing, Sudden Increased Bleeding, Increased Pain/ Swelling, Increased Redness, Foul Smelling Discharge Call your doctor if you observe: Fever of 101 or Higher, Shortness of breath, Dizziness, Uncontrolled pain Instructions: ED Cellulitis Additional Instructions: Podiatry to determine if patient needs a longer course of antibiotics after outpatient review in 1-2 weeks Allergies/Adverse Reactions: Allergies pravastatin Adverse Reaction (Verified 05/18/20 17:51) muscle and leg pain Medications to take at Discharge Atenolol [Tenormin (beta xander)] 25 mg PO DAILY 03/13/17 Lisinopril 40 mg PO QHS 03/13/17 Pramipexole Di-HCl [Mirapex] 0.5 mg PO QHS 03/13/17 metFORMIN HCl [Glucophage] 1,000 mg PO BIDCM 03/13/17 Aspirin [Aspirin, Baby] 81 mg PO DAILY@0800 05/18/20 Furosemide [Lasix] 40 mg PO DAILY 05/18/20 Insulin NPH Hum/Reg Insulin Hm [Humulin 70-30 Vial] 10 units SQ DINNER 05/18/20 Insulin NPH Hum/Reg Insulin Hm [Humulin 70-30 Vial] 20 units SQ DAILY 05/18/20 Potassium Chloride 10 meq PO DAILY 05/18/20 Cefdinir 300 mg PO BID 14 Days #28 cap 05/22/20 The following prescriptions were given: Cefdinir 300 mg PO BID 14 Days #28 cap Transmission Status: [facility] Primary Care Physician: Mikala Ndiaye NP, [employer]OP[employer] OFFICER-C [Primary Care Provider] - Please follow up with your Primary Care Physician in: 1-2 weeks Test Results: Test results from this visit will be discussed in further detail at your follow-up appointment, if applicable. Please Follow Up With: Sophia Dejesus DPM When: 1-2 weeks Proposed Discharge Date: 05/22/20
--- NOTE | 2020-05-22 13:36 | DS.PCM_ITS ---
Discharge Date and Diagnosis - Problem List Patient Problems: Active and Suspected Problems Cellulitis of foot, right (Acute) Cellulitis of great toe, right (Acute) Date of Admission: 05/18/20 Date of Discharge: 05/22/20 - Primary Discharge Diagnosis Acute Problems: Active Problems Cellulitis of foot, right (Acute) Cellulitis of great toe, right (Acute) Hospital Course and Treatment Imaging Results: Diagnostic Data Abdomen X-Ray 05/19/20 11:15 IMPRESSION: Moderate amount of fecal material is seen in the colon. Electronically Signed: Chapincito Rogers MD at 12:31 EST , Service support , podiatry- Dr Dejesus Operations: None Procedures: None Summary of Care Provided: The patient is a 70 year old F with a past medical history as outlined including diabetes mellitus complicated by neuropathy who was admitted directly from her PCPs office on 05/18/2020 with a complaint of swelling and redness of her right great toe with redness and warmth extending to her right foot. Foot had been swollen red and for about 2 weeks prior to admission and patient did not go to see her psychiatric technician assistant about this. PCP saw her in the office and admitted to the hospital. WBC was elevated at 13.8 and lactic acid was 1.8. X-ray of the right foot showed degenerative changes of the tarsals and a healing fracture of the distal fibula. She was admitted and managed for cellulitis of the right foot and right great toe. She was started on IV Unasyn and podiatry was consulted. She had bedside debridement done by podiatry and debridement revealed healthy tissue of the toe. Bone was not visible but was able to be probed. Per podiatry, there was no indication for osteomyelitis. Patient was continued on IV antibiotics. Culture showed no growth after 48 hours and wound culture with Proteus out of surgery and Streptococcus mitis/oralis as well as corynebacterium amycolatum. These were both sensitive to ceftriaxone. WBC trended down to 10.1 but on day of discharge, it was 11.8. Patient however felt well and Per discussion with podiatry, patient could be discharged home. She was therefore discharged on 05/22/2020 on oral cefdinir 300 mg twice daily for 14 days. She is to follow-up with podiatry on outpatient basis to determine if she needs a longer course of antibiotics. Patient seen and examined prior to discharge. was by her bedside. Review of systems was otherwise negative. labs and vitals reviewed. Home meds reviewed and reconciled. O/E: Vital Signs Temp Pulse Resp BP Pulse Ox 98.1 F 59 L 18 154/71 H 92 05/22/20 14:00 05/22/20 14:00 05/22/20 14:00 05/22/20 14:00 05/22/20 14:00 [] General: Alert, Oriented x3, Cooperative, Lethargic HEENT: Atraumatic, PERRLA, EOMI, Normocephalic Oral: Dry Mucosa Neck: Supple, No JVD, Negative Carotid Bruits Lungs: Clear to auscultation, Normal air movement Cardiovascular: Regular rate, Regular Rhythm, Normal S1, Normal S2, No murmurs Abdomen: Bowel Sounds Present, Soft, Non Tender Extremities: No clubbing, No cyanosis, No edema, Capillary Refill Less than 3 Seconds Skin: - -right big toe ulcer healing well, minimal slough in floor of ulcer. extensive debridement done; Musculoskeletal: No Tenderness to Palpation of Joints or Extremities Lymphatic: No Cervical, Supraclavicular, or Inguinal Adenopathy Neurological: Cranial nerves II-XII grossly intact, Neuro grossly intact, Motor Exam 5/5 strength throughout Psych/Mental Status: flat affect Plan is for discharge home today. Patient Problems: Active and Suspected Problems Cellulitis of foot, right (Acute) Cellulitis of great toe, right (Acute) - Physical Exam Vitals/I&O's: Vital Signs Temp Pulse Resp BP Pulse Ox 98.5 F 72 18 155/61 H 92 05/22/20 07:44 05/22/20 07:44 05/22/20 07:44 05/22/20 07:44 05/22/20 07:44 Oxygen Flow Rate (L/min) 1 Oxygen Delivery Method Room Air Weight: 201 lb 15.095 oz Body Mass Index (BMI) 40.8 Finger Stick Blood Glucose 232 Intake and Output for Last 24 Hours 05/20/20 05/21/20 05/22/20 23:59 23:59 23:59 Intake Total 1386 / 1386 1048 / 1048 736 / 736 Output Total 1800 / 1800 950 / 1650 1800 / 1800 Balance -414 / -414 98 / -602 -1064 / -1064 Microbiology Past 72 Hours 05/20/20 15:28 Blood Culture (Wb) - Right Hand Blood Culture - Preliminary No growth in 48 hours. 05/20/20 15:17 Blood Culture (Wb) - Left Hand Blood Culture - Preliminary No growth in 48 hours. 05/19/20 06:30 Wound - Toe Gram Stain - Final 05/19/20 06:30 Wound - Toe Wound Culture - Final Proteus hauseri Streptococcus mitis/ oralis Corynebacterium amycolatum Laboratory Results 05/21/20 16:03: POC Glucose 216 H 05/21/20 22:07: POC Glucose 246 H 05/22/20 07:02: WBC 11.8 H, RBC 3.96 L, Hgb 10.8 L, Hct 34.6 L, MCV 87.4, MCH 27.3, MCHC 31.2 L, RDW Std Deviation 44.1 H, RDW Coeff of Manas 13.8, Plt Count 383, MPV 10.1, Immature Gran % (Auto) 1.200 H, Neut % (Auto) 75.8 H, Lymph % (Auto) 13.5 L, Wood % (Auto) 5.8, Eos % (Auto) 3.3, Baso % (Auto) 0.4, Absolute Neuts (auto) 8.9 H, Absolute Lymphs (auto) 1.59, Nucleated RBC % 0 05/22/20 07:02: Sodium 138, Potassium 4.3, Chloride 102, Carbon Dioxide 31.0, Anion Gap 5, BUN 22 H, Creatinine 1.39 H, Estim Creat Clear Calc 54.46, Est GFR (MDRD) Af Amer 48 L, Est GFR (MDRD) Non-Af 40 L, BUN/Creatinine Ratio 15.8, Glucose 292 H, Calcium 8.3 L 05/22/20 07:47: POC Glucose 317 H 05/22/20 11:31: POC Glucose 159 H Current Medications Acetaminophen (Acetaminophen 325 Mg Tablet) 650 mg PO Q6H PRN PRN PRN Reason: Pain Score 1-10/Temp > 100.7 F Last Admin: 05/19/20 14:46 Dose: 650 mg Documented by: Aspirin (Aspirin 81 Mg Tab.Chew) 81 mg PO DAILY [facility] Last Admin: 05/22/20 10:09 Dose: 81 mg Documented by: Atenolol (Atenolol 25 Mg Tablet) 25 mg PO DAILY [facility] Last Admin: 05/22/20 10:10 Dose: 25 mg Documented by: Calcium Carbonate (Calcium Carbonate 500 Mg Tablet) 500 - 1,000 mg PO Q6H PRN PRN PRN Reason: HEARTBURN OR INDIGESTION Last Admin: 05/20/20 23:19 Dose: 500 mg Documented by: Furosemide (Furosemide 40 Mg Tablet) 40 mg PO BID@1000,1800 [facility] Last Admin: 05/22/20 10:10 Dose: 40 mg Documented by: Heparin Sodium (Porcine) (Heparin Injection (Vial) 5,000 Unit/Ml Vial) 5,000 unit SC Q12 [facility] Last Admin: 05/22/20 10:09 Dose: 5,000 unit Documented by: Ampicillin Sodium/Sulbactam (Sodium 3 gm/ Sodium Chloride) 112 mls @ 150 mls/hr IV Q6 [facility] Last Infusion: 05/22/20 12:23 Dose: Infused Documented by: Insulin Human Lispro (Insulin Lispro 100 Unit/Ml Insuln.Pen) 0 unit SC ACHS SC H; Protocol Last Admin: 05/22/20 11:32 Dose: 2 u Documented by: Insulin Lispro Protam/Lispro Human (Insulin Human 75/25 Kwickpen) 10 unit SC DINNER [facility] Last Admin: 05/21/20 16:05 Dose: 10 u Documented by: Insulin Lispro Protam/Lispro Human (Insulin Human 75/25 Kwickpen) 20 unit SC BREAKFAST [facility] Last Admin: 05/22/20 07:50 Dose: 20 u Documented by: Lisinopril (Lisinopril 40 Mg Tablet) 40 mg PO QHS [facility] Last Admin: 05/21/20 22:09 Dose: 40 mg Documented by: Metformin HCl (Metformin Hcl 1,000 Mg Tablet) 1,000 mg PO BIDCM [facility] Last Admin: 05/22/20 07:49 Dose: 1,000 mg Documented by: Nystatin (Nystatin Powder 15gm Bottle) 1 applic TOPICAL TID [facility]; Protocol Last Admin: 05/22/20 05:38 Dose: 1 applicatio Documented by: Ondansetron HCl (Ondansetron 4 Mg/2 Ml Vial) 4 mg IV Q8H PRN PRN PRN Reason: NAUSEA/VOMITING Last Admin: 05/20/20 13:01 Dose: 4 mg Documented by: Oxycodone HCl (Oxycodone 5 Mg Tablet) 5 mg PO Q4H PRN PRN PRN Reason: Pain Score 4-5 Oxycodone HCl (Oxycodone 5 Mg Tablet) 10 mg PO Q4H PRN PRN PRN Reason: Pain Score 6-10 Polyethylene Glycol (Polyethylene Glycol 3350 17 Gm Packet) 17 gm PO BID [facility] Last Admin: 05/22/20 11:04 Dose: Not Given Documented by: Potassium Chloride (Potassium Chloride 20 Meq Tablet) [facility] Last Admin: 05/22/20 07:50 Dose: 20 meq Documented by: Povidone Iodine (Povidone-Iodine Swabstick) 1 packet TOPICAL BID [facility]; Protocol Last Admin: 05/22/20 11:04 Dose: Not Given Documented by: Pramipexole Dihydrochloride (Pramipexole Di-Hcl 0.5 Mg Tablet) 0.5 mg PO QHS [facility] Last Admin: 05/21/20 22:08 Dose: 0.5 mg Documented by: Senna/Docusate Sodium (Senna/Docusate Sodium 1 Tablet) 1 tablet PO BID [facility] Last Admin: 05/22/20 10:10 Dose: 1 tablet Documented by: Sodium Chloride (0.9% Saline Lock 10 Ml Syringe) 10 - 40 ml IV UD PRN PRN Reason: SALINE FLUSH Last Admin: 05/19/20 23:04 Dose: 10 ml Documented by: Temazepam (Temazepam 15 Mg Capsule) 15 mg PO QHS PRN PRN PRN Reason: INSOMNIA Discharge Diet: 1800 Calorie Control Diet Discharge Activity: Return to Normal Activity Weight Bearing Status: Weight bearing as tolerated Call your doctor if your incision/area has: Continuous Slow Oozing, Sudden Increased Bleeding, Increased Pain/ Swelling, Increased Redness, Foul Smelling Discharge Call your doctor if you observe: Fever of 101 or Higher, Shortness of breath, Dizziness, Uncontrolled pain Home Medications: Medications to take at Discharge Atenolol [Tenormin (beta xander)] 25 mg PO DAILY 03/13/17 Lisinopril 40 mg PO QHS 03/13/17 Pramipexole Di-HCl [Mirapex] 0.5 mg PO QHS 03/13/17 metFORMIN HCl [Glucophage] 1,000 mg PO BIDCM 03/13/17 Aspirin [Aspirin, Baby] 81 mg PO DAILY@0800 05/18/20 Furosemide [Lasix] 40 mg PO DAILY 05/18/20 Insulin NPH Hum/Reg Insulin Hm [Humulin 70-30 Vial] 10 units SQ DINNER 05/18/20 Insulin NPH Hum/Reg Insulin Hm [Humulin 70-30 Vial] 20 units SQ DAILY 05/18/20 Potassium Chloride 10 meq PO DAILY 05/18/20 Cefdinir 300 mg PO BID 14 Days #28 cap 05/22/20 Following Prescriptions Were Given to Patient: Cefdinir 300 mg PO BID 14 Days #28 cap Transmission Status: Received by [facility] Primary Care Physician: Mikala Ndiaye DIRECTOR OF EXHIBITS, DIRECTOR OF EXHIBITS-C [Primary Care Provider] - Please follow up with your Primary Care Physician in: 1-2 weeks Please Follow Up With: Sophia Dejesus DPM When: 1-2 weeks Patient Instructions: ED Cellulitis Disposition: Home Minutes spent on discharge:: 45 Patient Condition:: Stable Medical Necessity - Tobacco Use Smoking Status: Never smoker Tobacco Use: Non-smoker Meaningful Use Info Meaningful Use Diagnoses (Choose all that apply): None applicable Inpatient E&M: 54710 Disch Hosp
[2020-05-22 14:00] VITALS: BP 154/71; PULSE 59; RESP 18; TEMP 36.7; O2SAT 92
[2020-05-22 17:17] VITALS: BP 154/71; PULSE 59; RESP 16; TEMP 36.7; O2SAT 92
== END 2020-05-22 17:38 | disposition home or self-care (01) | DRG 571 ==
PROVIDERS: Admitting Provider Internal Medicine; PCP Nurse Practitioner Family; Visit Provider Student in an Organized Health Care Education/Training Program
DX: L03.031 Cellulitis of right toe (principal); L03.115 Cellulitis of right lower limb; Z68.41 Body mass index [BMI] 40.0-44.9, adult; Z16.29 Resistance to other single specified antibiotic; I69.351 Hemiplegia and hemiparesis following cerebral infarction affecting right dominant side; E11.52 Type 2 diabetes mellitus with diabetic peripheral angiopathy with gangrene; I96 Gangrene, not elsewhere classified; S91.201D Unspecified open wound of right great toe with damage to nail, subsequent encounter; X58.XXXD Exposure to other specified factors, subsequent encounter; E11.65 Type 2 diabetes mellitus with hyperglycemia; I10 Essential (primary) hypertension; B96.4 Proteus (mirabilis) (morganii) as the cause of diseases classified elsewhere; B95.4 Other streptococcus as the cause of diseases classified elsewhere; B96.89 Other specified bacterial agents as the cause of diseases classified elsewhere; E11.42 Type 2 diabetes mellitus with diabetic polyneuropathy; I89.0 Lymphedema, not elsewhere classified; G25.81 Restless legs syndrome; E66.01 Morbid (severe) obesity due to excess calories; Z79.4 Long term (current) use of insulin; Z79.899 Other long term (current) drug therapy
CPT/HCPCS: 36415; 74019; 80048; 81001; 82962; 83036; 85025; 87040; 87070; 87075; 87077; 87186; 87205; 97110; 97116; 97162; 97166; 97530; 97535; 97802; 97803; J7040; A4216; J0295; J2405

== ENCOUNTER 2024-09-18 14:15 | Outpatient (RCR) | payer OTHER, SELFPAY ==
[2024-09-04 14:07] VITALS: BP 142/70; PULSE 70; RESP 18; TEMP 36.6; BMI 33.3
[2024-09-04 16:50] LABS: Hematocrit 45.1 % (37-47); Hemoglobin 13.7 g/dL (12.0-15.0); Mean Corp Hgb Conc 30.4 g/dL (32-36); Mean Corpuscular Hgb 27.7 pg (27.0-32.0); Mean Corpuscular Volume 91.1 fL (81-99); Mean Platelet Vol. 11.1 fl (6.2-12.0); Platelet Count 352 K/mm3 (150-450); RBC Distribution Width CV 16.5 % (11.6-14.6); RBC Distribution Width SD 54.8 fl (35.1-43.9); Red Blood Count 4.95 M/mm3 (4.2-5.4); White Blood Count 11.3 K/mm3 (4.4-11.0)
[2024-09-04 18:08] LABS: AST(SGOT) 22 U/L (<=31); Alanine Aminotransfer ALT/SGPT 18 U/L (<=34); Albumin, Serum 3.5 g/dL (3.4-4.8); Alkaline Phosphatase 100 U/L (35-104); Anion Gap 10 (5-15); BUN 47 mg/dL (4-19); BUN/Creat Ratio 30.1 RATIO (10-20); Calcium,Total 9.5 mg/dL (7.6-11.0); Carbon Dioxide 25.6 mmol/L (21.0-32.0); Chloride 100 mmol/L (98-108); Creatinine, Serum 1.56 mg/dL (0.70-1.20); EST Glomerular Filtration Rate 35 (>60); Estimated Creatinine Clearance 29.11 ml/min (50-250); Globulin 3.4 g/dL (2.2-4.2); Glucose 267 mg/dL (70-99); Potassium 4.9 mmol/L (3.3-5.1); Protein, Total 6.9 g/dL (5.9-8.4); Sodium Level 135 mmol/L (133-145)
--- NOTE | 2024-09-04 18:35 | HP.PCM_ITS ---
History of Present Illness Date of Service: 09/04/24 Chief Complaint: Diabetic left foot ulceration due to pressure History of Wound: This is a 74-year-old obese, diabetic female who presented with an ulceration on her left posterior heel. According to the patient, her , and her adult daughter, the ulceration has been present for the better part of 1 year. It has waxed and waned, and has, at times, appeared to be nearly healed. Approximately 3 weeks ago, the ulceration was noted to be much worse. The ulceration started as a blister. The patient and her family have been using Silvadene topically. The patient is immobile, unable to walk significant distances. She claims to sleep in a recliner. She sits in idle fashion throughout the day. She suffers from chronic swelling and edema in her lower extremities, which is noted to be worse late in the day. She possesses graduated compression stockings, which are not worn on a regular basis, and the degree of compression of which is not known. The patient has a history of cerebrovascular accident, renal disease, and hypertension. Her history is negative for myocardial infarction, congestive heart failure, pulmonary disease, and thyroid disease. The last available blood work was performed in September 2023, at which time her hemoglobin A1c was 9.4. [facility] Medical History Obesity (BMI 30.0-34.9) Chronic renal disease Hypertension Lower extremity edema Swelling of lower extremity History of cerebrovascular accident Cerebrovascular disease Diabetes mellitus Pressure ulcer of left heel, stage 3 Diabetic ulcer of left foot Home Medications ?Medication ?Instructions ?Recorded ?Last Taken ?Type atenolol 25 mg tablet 25 mg PO DAILY BP MED 05/18/20 History lisinopril 20 mg tablet 40 mg PO QHS BP MED 03/13/17 05/17/20 History pramipexole 0.5 mg tablet (Mirapex) 0.5 mg PO QHS rest less legs 03/13/17 05/17/20 History aspirin 81 mg chewable tablet 81 mg PO DAILY@0800 heal th 05/18/20 05/18/20 History maintenance furosemide 40 mg tablet 40 mg PO DAILY diuretic 04/2505/18/20 History insulin human U-100 NPH-regulr 10 units SQ DINNER diab etes 05/18/20 05/17/20 History 70-30 mix 100 unit/mL subcutaneous susp insulin human U-100 NPH-regulr 20 units SQ DAILY diabe petr 05/18/20 05/18/20 History 70-30 mix 100 unit/mL subcutaneous susp potassium chloride 10 mEq 10 meq PO DAILY supplement 0 05/18/20 05/18/20 History capsule,extended release glipizide 5 mg tablet 5 mg PO 09/04/24 Unknown His tory lorazepam 0.5 mg tablet (Ativan) 0.5 mg PO Q4H PRN anx iety 09/04/24 Unknown History metolazone 2.5 mg tablet 2.5 mg PO 09/04/24 Unknown H istory Allergy/AdvReac Type Severity Reaction Status Date / Time pravastatin AdvReac muscle and Verified 09/04/24 14:31 leg pain Surgical History History of lumbar surgery History of total right knee replacement History of cataract surgery History of partial hysterectomy History of arthroplasty of left shoulder History of toe surgery Social History Smoking Status: Never smoker Vital Signs Vital Signs Vital Signs: 09/04/24 14:07 Temperature 97.9 F Temperature Source Temporal Pulse Rate 70 Respiratory Rate 18 Blood Pressure 142/70 H Blood Pressure Mean 94 Blood Pressure Source Monitor Weight Weight: 170 lb 12.573 oz Body Mass Index (BMI) 33.3 Physical Exam Const alert, oriented x3 and no apparent distress Constitutional Narrative: The patient's abdomen appears to be obese. Her BMI is 33.4. She appears to be somewhat debilitated, with limitations in mobility. General Appearance: cooperative, comfortable and well developed Orientation / Consciousness: awake, oriented to person, oriented to place and oriented to time HEENT normocephalic and head/scalp atraumatic Head and Scalp: normal to inspection, normocephalic and atraumatic Face and Sinus: normal facial exam Nose: external nose normal External Ear: external ears normal Eyes EOMs intact bilaterally General Eye: normal appearance of both eyes Resp normal respiratory effort, normal air movement, no retractions and no use of accessory muscles Effort and Inspection: able to speak in complete sentences Extremity no calf tenderness General Extremity: Negative for clubbing or cyanosis Skin Wound Narrative: Moderate swelling and edema are noted in the patient's lower extremities bilaterally. An ulceration is noted on the patient's left posterior heel, which appears to be a stage III pressure ulceration. The ulceration extends through all layers of the dermis and into the subcutaneous tissues. It does not appear to extend down to bone or fascia. There is a moderate amount of gangrenous, necrotic material. Wound margins are not well beveled. Dimensions are documented elsewhere. There is no sign of infection or cellulitis Neuro oriented x3, CN's II-XII intact bilaterally, moves all extremities, no focal motor deficits and no sensory deficits noted Sensorium / Orientation: awake, alert, oriented to person, oriented to place and oriented to time Speech: speech normal Psych Appearance: grossly normal and appropriate Attitude: calm Activity / Motor Behavior: appropriate eye contact Speech: normal speech Mood & Affect: euthymic mood Thought Process: normal thought process Thought Content: normal thought content Attention / Concentration: attention grossly intact Debridement Note Debridement Note Wound debrided: Left posterior heel ulceration Laterality: Left Wound Grade/Stage: Stage III pressure ulcer Type of Debridement: Excisional debridement Anesthesia Used: 5% Lidocaine Gel and Cetacaine Depth: Down to and including healthy tissue and in the subcutaneous layer Percentage of wound debrided: 100 Instrument Used: 5mm curette, #15 blade and Forceps Tissue Removed: Necrotic and gangrenous material at the base of the wound; bioburden Severity: Fat Layer Exposed Amount of bleeding with debridement: Mild Bleeding Controlled with: Compression and gauze Patient tolerated procedure: Patient tolerated procedure well Debridement Free Text: Sharp scalpel dissection was used to excise a large amount of necrotic and gangrenous material at the base of the ulceration. Approximately 50% of the necrotic material was removed. The remainder was not excised to avoid patient discomfort and possible significant bleeding. Post-Debridement Measurements and Additional Note: Post-Debridement Measurements/Treatment WC - Nurse 1 - General Ulcer Assessment Start: 09/04/24 14:07 Freq: Status: Active Protocol: NAVI Activity Type Activity Date Activity User E-sign Co-sign Detail Recorded Client Recorded Date Recorded By Document 09/04/24 14:07 DL [id number] 09/04/24 14:27 DL Edit Result 09/04/24 14:07 DL (1) [id number] 09/04/24 14:37 DL (1) Height => 5 ft Weight => 170 lb 12.573 oz Weight in Pounds => 170.8 lbs Body Mass Index (BMI) => 33.3 BMI Classification => Obese 09/04/24 14:07 WC - Today's Visit Information Type of service Initial Visit Arrival Mode Wheelchair Height and Weight Height 5 ft Weight 170 lb 12.573 oz Weight in Pounds 170.8 lbs Body Mass Index (BMI) 33.3 BMI Classification Obese Vital Signs Temperature (97.8 F-99.1 F) 97.9 F Temperature Source Temporal Pulse Rate (60-100) 70 Pulse Location Monitor Respiratory Rate (12-18) 18 Respiratory rate source Observation Blood Pressure (90/60-120/80) 142/70 H Blood Pressure Mean 94 Source Monitor Pain Scale: 0-10 Numeric Is Patient Pain Free? Yes Lower Extremity Assessment/ Foot Assessment/ Toe Nail Assessment Left -Posterior Tibial Palpable No -Posterior Tibial Doppler Multiphasic -Dorsalis Pedis Palpable No -Dorsalis Pedis Doppler Monophasic -Hair Growth on Legs No -Hair Growth on Toes No -Temperature of Extremity Warm -Capillary Refill Less than 3 Seconds -Dependent Rubor No -Blanched when Elevated No -Lipodermatosclerosis No -Other Deformity No -Prior Foot Ulcer No -Charcot Joint No -Prior Amputation No -Thick No -Discolored No -Deformed No -Improper Length & Hygeine No Right -Posterior Tibial Palpable No -Posterior Tibial Doppler Monophasic -Dorsalis Pedis Palpable No -Dorsalis Pedis Doppler Multiphasic -Extremity Color Normal -Hair Growth on Legs No -Hair Growth on Toes No -Temperature of Extremity Warm -Capillary Refill Less than 3 Seconds -Dependent Rubor No -Blanched when Elevated No -Lipodermatosclerosis No -Other Deformity No -Prior Foot Ulcer No -Charcot Joint No -Prior Amputation No -Thick No -Discolored No -Deformed No -Improper Length & Hygeine No Neuropathy Assessment Neuro Exam Unable to perform due to altered mental status Communication Assessment Preferred language Swedish Able to Read No Able to Write No Communication Tools None Right Hearing Abillity Hard of Hearing Left Hearing Abillity Hard of Hearing Visual Assistive Devices Glasses Teaching Assessment Preferences Verbal,Written, Demonstration Barriers to Learning None Readiness To Learn Poor Willingness to Engage in Self Management Low Activies Readiness to Engage in Self Management Low Activities Anxiety Level Calm Cooperation Cooperative Perception Confused Interest in Health Problem Uninterested Education Importance Acknowledges Need Does Patient Smoke tobacco or other No substances Smoking Status Never smoker Is Patient Diabetic Yes Functional Assessment Recent Decline in Ability to Perform Denies Any Declines Culture/Yazidism/[place] [place] Cultural/Yazidism Needs that may affect No Treatment Plan Would you allow our [facility] independent living instructor to No meet you for the purpose of spiritual/ emotional support? [facility] [place] to contact place of judaism No Teaching: Wound Center Dressing Your Wound -Person Taught Patient *Welcome to the Wound Center -Person Taught Patient WC - Nurse 1 - General Ulcer Measurement Start: 09/04/24 14:07 Freq: Status: Active Protocol: Activity Type Activity Date Activity User E-sign Co-sign Detail Recorded Client Recorded Date Recorded By Document 09/04/24 14:07 DL [id number] 09/04/24 14:27 DL 09/04/24 14:07 Wound Center Nurse 1 #1 L Heel -Current Size (cm) - Length 2.2 -Current Size (cm) - Width 1.8 -Current Size (cm) - Depth 0.2 -Total Square Cm 3.96 -Photo Taken Yes -Classification - Thickness Unclassifiable (Eschar Covered ) -Exudate Amt Small -Wound Margin Thickened -Granulation Amt None Present (0 %) -Necrosis Amt Large (67-100%) -Necrotic Tissue Type Eschar -Structure Exposed N/A -Texture (Valorie-wound Skin Appearance) Scarring -Moisture (Valorie-wound Skin Appearance) No Abnormality -Color (Valorie-wound Skin Appearance) Erythema -Temperature (Valorie-wound Skin No Abnormality Appearance) (Pt Warm) -Tenderness on Palpation (Valorie-wound No Skin Appearance) -Ulcer Cleansing Soap and Water -Foul Odor after Cleansing No -Anesthetic Used 5% Lidocaine Gel Right Calf (cm) 36.4 Right Ankle (cm) 29.9 Left Calf (cm) 39.3 Left Ankle (cm) 29.1 WC - Nurse 2 - General Ulcer CM Notes Start: 09/04/24 14:07 Freq: Status: Active Protocol: Activity Type Activity Date Activity User E-sign Co-sign Detail Recorded Client Recorded Date Recorded By Document 09/04/24 14:47 [id number] 09/04/24 15:07 09/04/24 14:47 Wound Center Nurse 2 #1 L Heel -Time 14:47 -Correct Patient Yes -Correct Side, Site, Position Yes -Correct Procedure Yes -Procedure Performed Yes -Type of Procedure Debridement -Clinical Debridement Subcutaneous -Tissue Removed Subcutaneous -Post Debridement (cm) - Length 1.7 -Post Debridement (cm) - Width 2.2 -Post Debridement (cm) - Depth 0.1 -Total Square (Post) (cm) 3.74 -Area of Debridement (cm) - Length 1.7 -Area of Debridement (cm) - Width 2.2 -Total Square (Area) (cm) 3.74 -Tunneling No -Undermining/Tunneling No -Circular Undermining No -Wound/Ulcer Outcome Not Healed -Ulcer Cleansing Rinsed/ Irrigated with Saline -Foul Odor after Cleansing No -Bioengineered Tissue No -Bleeding Controlled with Pressure -Treatment Response Procedure Tolerated Well -Offloading No -Debridement - Subq, 1st 20sq cm Yes Pain Scale: 0-10 Numeric Is Patient Pain Free? Yes - Nurse 3 - General Ulcer D/C NN Start: 09/04/24 14:07 Freq: Status: Active Protocol: Activity Type Activity Date Activity User E-sign Co-sign Detail Recorded Client Recorded Date Recorded By Document 09/04/24 15:24 KW [id number] 09/04/24 15:25 KW 09/04/24 15:24 Wound Care Center Nurse 3 #1 L Heel -Other Dressing santyl, hydrogel today -Primary Dressing Covered/Secured with Dry Gauze & Roll Gauze, Secured with Tape LLE -Compression Wrap Santos Wrap Pain Scale: 0-10 Numeric Is Patient Pain Free? Yes WC - Visit Discharge Discharge Condition Stable Ambulatory Status Wheelchair Transportation Private Auto Medication Reconcilliation completed & No provided to patient/care provider Clinical Summary of Care Provided Yes Lab / Micro Data 09/04/24 16:20 09/04/24 16:20 Labs: Laboratory Results - last 24 hr 09/04/24 16:20: WBC 11.3 H, RBC 4.95, Hgb 13.7, Hct 45.1, MCV 91.1, MCH 27.7, M CHC 30.4 L, RDW Std Deviation 54.8 H, RDW Coeff of Manas 16.5 H, Plt Count 352, MPV 11.1, Sodium 135, Potassium 4.9, Chloride 100, Carbon Dioxide 25.6, Anion Gap 10, BUN 47 H, Creatinine 1.56 H, Estim Creat Clear Calc 29.11 L, Est GFR (MDRD) Non-Af 35 L, BUN/Creatinine Ratio 30.1 H, Glucose 267 H, Calcium 9.5, Total Bilirubin 0.20, AST 22, ALT 18, Alkaline Phosphatase 100, Total Protein 6.9, Albumin 3.5, Globulin 3.4, Albumin/Globulin Ratio 1.0 Charges/Coding Multi Select Codes Visit Charges Office Visit/Consults: 95015 OV L4 New 45 min Integumentary Integumentary CPT Codes: 24256 Shannon subq tissue 20 sq cm/< Assessment/Plan Assessment/Plan (1) Pressure ulcer of left heel, stage 3: CODE(S): L89.623 - Pressure ulcer of left heel, stage 3 (2) Diabetic ulcer of left foot: CODE(S): E11.621 - Type 2 diabetes mellitus with foot ulcer; L97.529 - Non-pressure chronic ulcer of other part of left foot with unspecified severity QUALIFIERS: Diabetic foot ulcer location: heel Diabetes mellitus type: type 2 Non-pressure ulcer stage: with fat layer exposed Qualified Code(s): E11.621 - Type 2 diabetes mellitus with foot ulcer; L97.422 - Non- pressure chronic ulcer of left heel and midfoot with fat layer exposed (3) Diabetes mellitus: CODE(S): E11.9 - Type 2 diabetes mellitus without complications (4) Swelling of lower extremity: CODE(S): M79.89 - Other specified soft tissue disorders (5) Lower extremity edema: CODE(S): R60.0 - Localized edema (6) Cerebrovascular disease: CODE(S): I67.9 - Cerebrovascular disease, unspecified (7) History of cerebrovascular accident: CODE(S): Z86.73 - Personal history of transient ischemic attack (TIA), and cerebral infarction without residual deficits (8) Hypertension: CODE(S): I10 - Essential (primary) hypertension (9) Chronic renal disease: CODE(S): N18.9 - Chronic kidney disease, unspecified (10) History of toe surgery: CODE(S): Z98.890 - Other specified postprocedural states (11) History of arthroplasty of left shoulder: CODE(S): Z96.612 - Presence of left artificial shoulder joint (12) History of partial hysterectomy: CODE(S): Z90.711 - Acquired absence of uterus with remaining cervical stump (13) History of cataract surgery: CODE(S): Z98.49 - Cataract extraction status, unspecified eye (14) History of total right knee replacement: CODE(S): Z96.651 - Presence of right artificial knee joint (15) History of lumbar surgery: CODE(S): Z98.890 - Other specified postprocedural states (16) Obesity (BMI 30.0-34.9): CODE(S): E66.811 - Obesity, class 1 PLAN: Plan This is a 74-year-old obese, diabetic female who presented with an ulceration on the left posterior heel, which has been present for the better part of 1 year. The patient and her family have been using Silvadene topically in recent weeks. The ulceration has been noted to worsen over the last 3 weeks. The ulceration appears to be related to pressure, as it is located at a site which would rest against the bed surface or the patient's recliner when she is in the recumbent position. Management recommendations have been discussed with the patient, and her family at the bedside. Offloading measures are to be implemented. The patient's family has been advised to use a rolled towel or blanket on her posterior calf to lift her posterior heel off of the bed surface. In addition, it has been recommended that they acquire a Podus boot, which will provide for offloading and protect the patient's heel. We are to implement the use of collagenase Santyl topically, which will provide enzymatic debridement, and is anticipated for use over the next several weeks. The patient's family has been instructed in the appropriate means of application. Furthermore, the patient has been provided a means of acquiring the proper at a reasonable love point. The patient has been advised to optimize her glycemic control and her nutritional intake. A nutritional supplement such as Glucerna has been advised. We are to obtain blood work, which will include a CBC, comprehensive metabolic profile, and a hemoglobin A1c to assess metabolic factors. We will also order a noninvasive lower extremity arterial study, which will enable assessment of the patient's circulatory status. The patient has been advised to elevate her lower extremities as much as possible. Elevation is to be to heart level, or higher. Elevation is to be during both daytime and nighttime hours. Prolonged idle sitting has been discouraged. Ambulation has been encouraged, although the patient is extremely limited in her capacity. Total time: 50 minutes
[2024-09-04 19:10] LABS: Hemoglobin A1c 12.5 % (<=5.6)
--- NOTE | 2024-09-05 08:46 | WC ---
PHOTO LEFT HEEL 09/04/24
--- NOTE | 2024-09-06 09:03 | ART_ITS ---
Reason For Study Reason For Study: Foot Ulcer Procedure A bilateral lower extremity continuous wave Doppler with analog waveform analysis,segmental pressures,and ankle brachial indexes without exercise. Left Segmental Pressures Left brachial= 172mmHg. Left calf = 171mmHg. Left posterior tibial artery = 120mmHg. Left dorsalis pedis artery = 159mmHg. Left digit = 92 mmHg. Right Segmental Pressures Right brachial= 172mmHg. Right calf = 148mmHg. Right posterior tibial artery = 155mmHg. Right dorsalis pedis artery = 155mmHg. Right digit = 97 mmHg. Indices The right ankle brachial index by the posterior tibial artery is 0.90. The right ankle brachial index by the dorsalis pedis is 0.90. The right digital-brachial index is 0.56. The left ankle brachial index by the posterior tibial artery is 0.70. The left ankle brachial index by the dorsalis pedis is 0.92. The left digital-brachial index is 0.53. VL/Lower Ext Art Exam w/o Exercis Interpretation Summary Biphasic Doppler waveforms are noted at ankle level bilaterally. Pulse-volume r ecordings appear satisfactory at all levels bilaterally. Resting ankle-brachial indices are minimally diminished annie aterally. Digital-brachial indices are mildly diminished bilaterally. Minimal arterial occlusive disease is noted at ankle level bilaterally. Mild ar terial occlusive disease is noted at digital level bilaterally. Ordering Physician: Eugenio Wang Referring Physician: Tiff Frank Performed By: Danae Rocha RDCS/RVT
[2024-09-12 13:57] VITALS: BP 145/68; PULSE 65; RESP 14; TEMP 36.3; BMI 33.3
--- NOTE | 2024-09-13 14:00 | HP.PCM_ITS ---
History of Present Illness Date of Service: 09/12/24 Chief Complaint: Diabetic left foot ulceration due to pressure History of Wound: This is a 74-year-old obese, diabetic female who presented with an ulceration on her left posterior heel. According to the patient, her , and her adult daughter, the ulceration has been present for the better part of 1 year. It has waxed and waned, and has, at times, appeared to be nearly healed. Approximately 3 weeks prior to presentation, the ulceration was noted to be much worse. The ulceration started as a blister. The patient and her family had been using Silvadene topically. The patient is immobile, unable to due to a prior cerebrovascular accident. She claims to sleep in a recliner. She sits in idle fashion throughout the day. She suffers from chronic swelling and edema in her lower extremities, which is noted to be worse late in the day. She possesses graduated compression stockings, which are not worn on a regular basis, and the degree of compression of which is not known. The patient has a history of cerebrovascular accident, renal disease, and hypertension. Her history is negative for myocardial infarction, congestive heart failure, pulmonary disease, and thyroid disease. At initial intake, the last available blood work was performed in September 2023, at which time her hemoglobin A1c was 9.4. [facility] Medical History Obesity (BMI 30.0-34.9) Chronic renal disease Hypertension Lower extremity edema Swelling of lower extremity History of cerebrovascular accident Cerebrovascular disease Diabetes mellitus Pressure ulcer of left heel, stage 3 Diabetic ulcer of left foot Home Medications ?Medication ?Instructions ?Recorded ?Last Taken ?Type atenolol 25 mg tablet 25 mg PO DAILY BP MED 05/18/20 History lisinopril 20 mg tablet 40 mg PO QHS BP MED 03/13/17 05/17/20 History pramipexole 0.5 mg tablet (Mirapex) 0.5 mg PO QHS rest less legs 03/13/17 05/17/20 History aspirin 81 mg chewable tablet 81 mg PO DAILY@0800 heal th 05/18/20 05/18/20 History maintenance furosemide 40 mg tablet 40 mg PO DAILY diuretic 04/2505/18/20 History insulin human U-100 NPH-regulr 10 units SQ DINNER diab etes 05/18/20 05/17/20 History 70-30 mix 100 unit/mL subcutaneous susp insulin human U-100 NPH-regulr 20 units SQ DAILY diabe petr 05/18/20 05/18/20 History 70-30 mix 100 unit/mL subcutaneous susp potassium chloride 10 mEq 10 meq PO DAILY supplement 0 05/18/20 05/18/20 History capsule,extended release glipizide 5 mg tablet 5 mg PO 09/04/24 Unknown His tory lorazepam 0.5 mg tablet (Ativan) 0.5 mg PO Q4H PRN anx iety 09/04/24 Unknown History metolazone 2.5 mg tablet 2.5 mg PO 09/04/24 Unknown H istory Allergy/AdvReac Type Severity Reaction Status Date / Time pravastatin AdvReac muscle and Verified 09/04/24 14:31 leg pain Surgical History History of lumbar surgery History of total right knee replacement History of cataract surgery History of partial hysterectomy History of arthroplasty of left shoulder History of toe surgery Social History Smoking Status: Never smoker Vital Signs Vital Signs Vital Signs: Weight Weight: 170 lb 12.573 oz Body Mass Index (BMI) 33.3 Physical Exam Const alert, oriented x3 and no apparent distress Constitutional Narrative: The patient's abdomen appears to be obese. Her BMI is 33.4. She is debilitated, with limitations in mobility. General Appearance: cooperative, comfortable and well developed Orientation / Consciousness: awake and oriented to person HEENT normocephalic and head/scalp atraumatic Head and Scalp: normal to inspection, normocephalic and atraumatic Face and Sinus: normal facial exam Nose: external nose normal External Ear: external ears normal Eyes EOMs intact bilaterally General Eye: normal appearance of both eyes Resp normal respiratory effort, normal air movement, no retractions and no use of accessory muscles Effort and Inspection: able to speak in complete sentences Extremity no calf tenderness General Extremity: Negative for clubbing or cyanosis Skin Wound Narrative: Moderate swelling and edema are noted in the patient's lower extremities bilaterally. An ulceration is noted on the patient's left posterior heel, which appears to be a stage III pressure ulceration. The ulceration extends through all layers of the dermis and into the subcutaneous tissues. It does not appear to extend down to bone or fascia. There is a large amount of gangrenous, necrotic material. Wound margins are not well beveled. Dimensions are documented elsewhere. A disagreeable odor is noted. Neuro oriented x3 and CN's II-XII intact bilaterally Sensorium / Orientation: awake, alert, oriented to person, oriented to place and oriented to time Speech: speech normal Psych Appearance: grossly normal and appropriate Attitude: calm Activity / Motor Behavior: appropriate eye contact Speech: normal speech Mood & Affect: euthymic mood Thought Process: normal thought process Thought Content: normal thought content Attention / Concentration: attention grossly intact Debridement Note Debridement Note Wound debrided: Left posterior heel ulceration Laterality: Left Wound Grade/Stage: Stage III pressure ulcer Type of Debridement: Excisional debridement Anesthesia Used: 5% Lidocaine Gel and Cetacaine Depth: Down to and including healthy tissue and in the subcutaneous layer Percentage of wound debrided: 100 Instrument Used: 5mm curette, Forceps and - (Scissors) Tissue Removed: Necrotic and gangrenous material at the base of the wound; bioburden Severity: Fat Layer Exposed Amount of bleeding with debridement: Mild Bleeding Controlled with: Compression and gauze Patient tolerated procedure: Patient tolerated procedure well Debridement Free Text: Sharp scissor dissection was used to excise a large amount of necrotic and gangrenous material at the base of the ulceration. A portion of the necrotic material was not excised to avoid patient discomfort and possible significant bleeding. Because of the presence of frankly necrotic and gangrenous material, and a disagreeable odor, a swab culture was obtained at the time of debridement for aerobic and anaerobic bacterial culture. Post-Debridement Measurements and Additional Note: Post-Debridement Measurements/Treatment RACHAEL - Nurse 1 - General Ulcer Assessment Start: 09/04/24 14:07 Freq: Status: Active Protocol: NAVI Activity Type Activity Date Activity User E-sign Co-sign Detail Recorded Client Recorded Date Recorded By Document 09/04/24 14:07 DL [id number] 09/04/24 14:27 DL Edit Result 09/04/24 14:07 DL (1) [id number] 09/04/24 14:37 DL Document 09/12/24 13:57 ML [id number] 09/12/24 14:24 ML (1) Height => 5 ft Weight => 170 lb 12.573 oz Weight in Pounds => 170.8 lbs Body Mass Index (BMI) => 33.3 BMI Classification => Obese 09/04/24 09/12/24 14:07 13:57 WC - Today's Visit Information Type of service Initial Visit Follow-up Visit (Physician/LAYOUT TECHNICIAN ) Arrival Mode Wheelchair Wheelchair Transfer Assistance Manual Patient Identification Verified (Name & Yes ) Patient Requires Transmission-Based No Precautions Height and Weight Height 5 ft Weight 170 lb 12.573 oz Weight in Pounds 170.8 lbs Body Mass Index (BMI) 33.3 33.3 BMI Classification Obese Obese Vital Signs Temperature (97.8 F-99.1 F) 97.9 F 97.4 F L Temperature Source Temporal Temporal Pulse Rate (60-100) 70 65 Pulse Location Monitor Monitor Respiratory Rate (12-18) 18 14 Respiratory rate source Observation Observation Blood Pressure (90/60-120/80) 142/70 H 145/68 H Blood Pressure Mean 94 93 Source Monitor Monitor Position Sitting Blood Pressure Location Right Arm History Since Last Visit- (Skip if this is Patient's initial visit) Have you changed medications since your No last visit? Any new allergies or adverse reactions No Had a fall/change in ADL's that may No increase risk of falls Signs or symptoms of abuse and/or No neglect since last visit Have you been in the hospital since your No last visit? Has dressing in place as prescribed Yes Has compression in place as prescribed N/A Has offloadiing in place as prescribed N/A Experienced any changes in pain level or No management Pain Scale: 0-10 Numeric Is Patient Pain Free? Yes Yes Lower Extremity Assessment/ Foot Assessment/ Toe Nail Assessment Left -Posterior Tibial Palpable No -Posterior Tibial Doppler Multiphasic -Dorsalis Pedis Palpable No -Dorsalis Pedis Doppler Monophasic -Hair Growth on Legs No -Hair Growth on Toes No -Temperature of Extremity Warm -Capillary Refill Less than 3 Seconds -Dependent Rubor No -Blanched when Elevated No -Lipodermatosclerosis No -Other Deformity No -Prior Foot Ulcer No -Charcot Joint No -Prior Amputation No -Thick No -Discolored No -Deformed No -Improper Length & Hygeine No Right -Posterior Tibial Palpable No -Posterior Tibial Doppler Monophasic -Dorsalis Pedis Palpable No -Dorsalis Pedis Doppler Multiphasic -Extremity Color Normal -Hair Growth on Legs No -Hair Growth on Toes No -Temperature of Extremity Warm -Capillary Refill Less than 3 Seconds -Dependent Rubor No -Blanched when Elevated No -Lipodermatosclerosis No -Other Deformity No -Prior Foot Ulcer No -Charcot Joint No -Prior Amputation No -Thick No -Discolored No -Deformed No -Improper Length & Hygeine No Neuropathy Assessment Neuro Exam Unable to perform due to altered mental status Communication Assessment Preferred language French Able to Read No Able to Write No Communication Tools None Right Hearing Abillity Hard of Hearing Left Hearing Abillity Hard of Hearing Visual Assistive Devices Glasses Teaching Assessment Preferences Verbal,Written, Demonstration Barriers to Learning None Readiness To Learn Poor Willingness to Engage in Self Management Low Activies Readiness to Engage in Self Management Low Activities Anxiety Level Calm Cooperation Cooperative Perception Confused Interest in Health Problem Uninterested Education Importance Acknowledges Need Does Patient Smoke tobacco or other No substances Smoking Status Never smoker Is Patient Diabetic Yes Functional Assessment Recent Decline in Ability to Perform Denies Any Declines Culture/Muslim/Video Production Engineer Cultural/Muslim Needs that may affect No Treatment Plan Would you allow our hospital hogshead hooper to No meet you for the purpose of spiritual/ emotional support? Video Production Engineer to contact place of restorationism No Teaching: Wound Center Dressing Your Wound -Person Taught Patient *Welcome to the Wound Center -Person Taught Patient WC - Nurse 1 - General Ulcer Measurement Start: 09/04/24 14:07 Freq: Status: Active Protocol: Activity Type Activity Date Activity User E-sign Co-sign Detail Recorded Client Recorded Date Recorded By Document 09/04/24 14:07 DL [id number] 09/04/24 14:27 DL Document 09/12/24 13:57 ML [id number] 09/12/24 14:24 ML 09/04/24 09/12/24 14:07 13:57 Wound Center Nurse 1 #1 L Heel -Current Size (cm) - Length 2.2 2 -Current Size (cm) - Width 1.8 2 -Current Size (cm) - Depth 0.2 0.2 -Total Square Cm 3.96 4 -Photo Taken Yes -Classification - Thickness Unclassifiable (Eschar Covered ) -Exudate Amt Small Medium -Exudate Type Yellow/Green -Wound Margin Thickened -Granulation Amt None Present (0 Medium (34-66%) %) -Slough/Fibrin Yes -Necrosis Amt Large (67-100%) Medium (34-66%) -Necrotic Tissue Type Eschar Adherent Slough -Structure Exposed N/A -Texture (Valorie-wound Skin Appearance) Scarring Assessed, Localized Edema -Moisture (Valorie-wound Skin Appearance) No Abnormality Assessed -Color (Valorie-wound Skin Appearance) Erythema Assessed -Temperature (Valorie-wound Skin No Abnormality No Abnormality Appearance) (Pt Warm) (Pt Warm) -Tenderness on Palpation (Valorie-wound No Yes Skin Appearance) -Ulcer Cleansing Soap and Water Rinsed/ Irrigated with Saline -Foul Odor after Cleansing No Yes -Anesthetic Used 5% Lidocaine 5% Lidocaine Gel Gel Right Calf (cm) 36.4 Right Ankle (cm) 29.9 Left Calf (cm) 39.3 43 Left Ankle (cm) 29.1 27.5 WC - Nurse 2 - General Ulcer CM Notes Start: 09/04/24 14:07 Freq: Status: Active Protocol: Activity Type Activity Date Activity User E-sign Co-sign Detail Recorded Client Recorded Date Recorded By Document 09/04/24 14:47 GM [id number] 09/04/24 15:07 GM Document 09/12/24 14:47 DS [id number] 09/12/24 14:52 DS 09/04/24 09/12/24 14:47 14:47 Wound Center Nurse 2 #1 L Heel -Time 14:47 14:47 -Correct Patient Yes Yes -Correct Side, Site, Position Yes Yes -Correct Procedure Yes Yes -Procedure Performed Yes Yes -Type of Procedure Debridement Debridement -Clinical Debridement Subcutaneous Subcutaneous -Tissue Removed Subcutaneous Subcutaneous -Post Debridement (cm) - Length 1.7 1.6 -Post Debridement (cm) - Width 2.2 1.9 -Post Debridement (cm) - Depth 0.1 0.6 -Total Square (Post) (cm) 3.74 3.04 -Area of Debridement (cm) - Length 1.7 1.6 -Area of Debridement (cm) - Width 2.2 1.9 -Total Square (Area) (cm) 3.74 3.04 -Tunneling No No -Undermining/Tunneling No No -Circular Undermining No No -Wound/Ulcer Outcome Not Healed Not Healed -Ulcer Cleansing Rinsed/ Rinsed/ Irrigated with Irrigated with Saline Saline -Foul Odor after Cleansing No No -Bioengineered Tissue No No -Bleeding Controlled with Pressure Pressure -Treatment Response Procedure Tolerated Well -Offloading No -Debridement - Subq, 1st 20sq cm Yes Yes Pain Scale: 0-10 Numeric Is Patient Pain Free? Yes No left heel -Description Throbbing -Intensity 5 -Duration (hours) Chronic -Pain Aggravating Factors Debridement -Alleviating Factors/Interventions Will continue to monitor, Emotional Support -Comments cetecaine used - Nurse 3 - General Ulcer D/C NN Start: 09/04/24 14:07 Freq: Status: Active Protocol: Activity Type Activity Date Activity User E-sign Co-sign Detail Recorded Client Recorded Date Recorded By Document 09/04/24 15:24 KW [id number] 09/04/24 15:25 KW Document 09/12/24 15:16 ML [id number] 09/12/24 15:17 ML 09/04/24 09/12/24 15:24 15:16 Wound Care Center Nurse 3 #1 L Heel -Ulcer Cleansing Rinsed/ Irrigated with Saline -Other Dressing santyl, abd hydrogel today -Primary Dressing Covered/Secured with Dry Gauze & Dry Gauze & Roll Gauze, Roll Gauze, Secured with Secured with Tape Tape -Other Covering santos LLE -Compression Wrap Santos Wrap -Tubular Bandage Single Layer -Size of Tubigrip Used Size E -Size E ($) 1 Pain Scale: 0-10 Numeric Is Patient Pain Free? Yes Yes WC - Visit Discharge Discharge Condition Stable Ambulatory Status Wheelchair Transportation Private Auto Medication Reconcilliation completed & No provided to patient/care provider Clinical Summary of Care Provided Yes Lab / Micro Data Attestation: I reviewed the patient's lab results. 09/04/24 16:20 09/04/24 16:20 Labs: Laboratory Results - last 24 hr 09/04/24 16:20: WBC 11.3 H, RBC 4.95, Hgb 13.7, Hct 45.1, MCV 91.1, MCH 27.7, M CHC 30.4 L, RDW Std Deviation 54.8 H, RDW Coeff of Manas 16.5 H, Plt Count 352, MPV 11.1, Sodium 135, Potassium 4.9, Chloride 100, Carbon Dioxide 25.6, Anion Gap 10, BUN 47 H, Creatinine 1.56 H, Estim Creat Clear Calc 29.11 L, Est GFR (MDRD) Non-Af 35 L, BUN/Creatinine Ratio 30.1 H, Glucose 267 H, Calcium 9.5, Total Bilirubin 0.20, AST 22, ALT 18, Alkaline Phosphatase 100, Total Protein 6.9, Albumin 3.5, Globulin 3.4, Albumin/Globulin Ratio 1.0 Charges/Coding Procedures Integumentary [id number]: [id number] Shannon subq tissue 20 sq cm/< Assessment/Plan Assessment/Plan (1) Pressure ulcer of left heel, stage 3: CODE(S): L89.623 - Pressure ulcer of left heel, stage 3 (2) Diabetic ulcer of left foot: CODE(S): E11.621 - Type 2 diabetes mellitus with foot ulcer; L97.529 - Non-pressure chronic ulcer of other part of left foot with unspecified severity QUALIFIERS: Diabetic foot ulcer location: heel Diabetes mellitus type: type 2 Non-pressure ulcer stage: with fat layer exposed Qualified Code(s): E11.621 - Type 2 diabetes mellitus with foot ulcer; L97.422 - Non- pressure chronic ulcer of left heel and midfoot with fat layer exposed (3) Diabetes mellitus: CODE(S): E11.9 - Type 2 diabetes mellitus without complications (4) Swelling of lower extremity: CODE(S): M79.89 - Other specified soft tissue disorders (5) Lower extremity edema: CODE(S): R60.0 - Localized edema (6) Cerebrovascular disease: CODE(S): I67.9 - Cerebrovascular disease, unspecified (7) History of cerebrovascular accident: CODE(S): Z86.73 - Personal history of transient ischemic attack (TIA), and cerebral infarction without residual deficits (8) Hypertension: CODE(S): I10 - Essential (primary) hypertension (9) Chronic renal disease: CODE(S): N18.9 - Chronic kidney disease, unspecified (10) History of toe surgery: CODE(S): Z98.890 - Other specified postprocedural states (11) History of arthroplasty of left shoulder: CODE(S): Z96.612 - Presence of left artificial shoulder joint (12) History of partial hysterectomy: CODE(S): Z90.711 - Acquired absence of uterus with remaining cervical stump (13) History of cataract surgery: CODE(S): Z98.49 - Cataract extraction status, unspecified eye (14) History of total right knee replacement: CODE(S): Z96.651 - Presence of right artificial knee joint (15) History of lumbar surgery: CODE(S): Z98.890 - Other specified postprocedural states (16) Obesity (BMI 30.0-34.9): CODE(S): E66.811 - Obesity, class 1 PLAN: Plan This is a 74-year-old obese, diabetic female who presented with an ulceration on the left posterior heel, which had been present for the better part of 1 year. The patient and her family had been using Silvadene topically prior to initial presentation. The ulceration had been noted to worsen over the 3 weeks prior to presentation. The ulceration appears to be related to pressure, as it is located at a site which would normally rest against the bed surface when she is in the recumbent position. Management recommendations have been discussed with the patient, and her family at the bedside. Offloading measures are to be implemented. The patient's family has been advised to use a rolled towel or blanket on her posterior calf to lift her posterior heel off of the bed surface. In addition, it has been recommended that they acquire a Podus boot, which they have done. The Podus boot will protect the patient's heel from trauma and pressure. We have prescribed collagenase Santyl to be used topically, though the patient and her family have had difficulty in procuring the product. Measures are to be undertaken to facilitate this. We are to use collagenase Santyl topically, which will provide enzymatic debridement, and is anticipated for use over the next several weeks. The patient's family has been instructed in the appropriate means of application. The patient has been advised to optimize her glycemic control and her nutritional intake. The patient's hemoglobin A1c, obtained on September 04, 2024, was 12.5. A discussion has been undertaken with the patient and her family informing them that this is indicative of recent poor control of her diabetic condition. So as to assist in the management of the patient's diabetes, the patient's recent laboratory results are to be forwarded to her primary care physician, Dr. Frank. A nutritional supplement such as Glucerna has been advised. 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 The patient has been advised to elevate her lower extremities as much as possible. Elevation is to be to heart level, or higher. Elevation is to be during both daytime and nighttime hours. Prolonged idle sitting has been discouraged. Ambulation has been encouraged, although the patient is extremely limited in her capacity. A Tubigrip compression garment is to be donned on a daily basis. Total time: 28 minutes
[2024-09-18 14:27] VITALS: BP 138/65; PULSE 72; RESP 14; TEMP 36.7; BMI 33.3
--- NOTE | 2024-09-20 15:40 | PCM.WC.HP ---
History of Present Illness Date of Service: 09/18/24 Chief Complaint: Diabetic left foot ulceration due to pressure History of Wound: This is a 74-year-old obese, diabetic female who presented with an ulceration on her left posterior heel. According to the patient, her , and her adult daughter, the ulceration has been present for the better part of 1 year. It has waxed and waned, and has, at times, appeared to be nearly healed. Approximately 3 weeks prior to presentation, the ulceration was noted to be much worse. The ulceration started as a blister. The patient and her family had been using Silvadene topically. The patient is immobile, unable to due to a prior cerebrovascular accident. She claims to sleep in a recliner. She sits in idle fashion throughout the day. She suffers from chronic swelling and edema in her lower extremities, which is noted to be worse late in the day. She possesses graduated compression stockings, which are not worn on a regular basis, and the degree of compression of which is not known. The patient has a history of cerebrovascular accident, renal disease, and hypertension. Her history is negative for myocardial infarction, congestive heart failure, pulmonary disease, and thyroid disease. [facility] Medical History Obesity (BMI 30.0-34.9) Chronic renal disease Hypertension Lower extremity edema Swelling of lower extremity History of cerebrovascular accident Cerebrovascular disease Diabetes mellitus Pressure ulcer of left heel, stage 3 Diabetic ulcer of left foot Home Medications ?Medication ?Instructions ?Recorded ?Last Taken ?Type atenolol 25 mg tablet 25 mg PO DAILY BP MED 03/13/17 05/18/20 History lisinopril 20 mg tablet 40 mg PO QHS BP MED 03/13/17 05/17/20 History pramipexole 0.5 mg tablet (Mirapex) 0.5 mg PO QHS restless legs 03/13/17 05/17/20 History aspirin 81 mg chewable tablet 81 mg PO DAILY@0800 health 05/18/20 05/18/20 History maintenance furosemide 40 mg tablet 40 mg PO DAILY diuretic 05/18/20 05/18/20 History insulin human U-100 NPH-regulr 10 units SQ DINNER diabetes 05/18/20 05/17/20 History 70-30 mix 100 unit/mL subcutaneous susp insulin human U-100 NPH-regulr 20 units SQ DAILY diabetes 05/18/20 05/18/20 History 70-30 mix 100 unit/mL subcutaneous susp potassium chloride 10 mEq 10 meq PO DAILY supplement 05/18/20 05/18/20 History capsule,extended release glipizide 5 mg tablet 5 mg PO 09/04/24 Unknown History lorazepam 0.5 mg tablet (Ativan) 0.5 mg PO Q4H PRN anxiety 09/04/24 Unknown History metolazone 2.5 mg tablet 2.5 mg PO 09/04/24 Unknown History sulfamethoxazole 800 1 tab PO Q12H #28 TABLETS 09/16/24 Unknown Rx mg-trimethoprim 160 mg tablet (Bactrim DS) Allergy/AdvReac Type Severity Reaction Status Date / Time pravastatin AdvReac muscle and Verified 09/04/24 14:31 leg pain Surgical History History of lumbar surgery History of total right knee replacement History of cataract surgery History of partial hysterectomy History of arthroplasty of left shoulder History of toe surgery Social History Smoking Status: Never smoker Vital Signs Vital Signs Vital Signs: Weight Weight: 170 lb 12.573 oz Body Mass Index (BMI) 33.3 Physical Exam Const alert, oriented x3 and no apparent distress Constitutional Narrative: The patient's abdomen appears to be obese. Her BMI is 33.4. She is debilitated, with limitations in mobility. General Appearance: cooperative, comfortable and well developed Orientation / Consciousness: awake and oriented to person HEENT normocephalic and head/scalp atraumatic Head and Scalp: normal to inspection, normocephalic and atraumatic Face and Sinus: normal facial exam Nose: external nose normal External Ear: external ears normal Eyes EOMs intact bilaterally General Eye: normal appearance of both eyes Resp normal respiratory effort, normal air movement, no retractions and no use of accessory muscles Effort and Inspection: able to speak in complete sentences Extremity no calf tenderness General Extremity: Negative for clubbing or cyanosis Skin Wound Narrative: Moderate swelling and edema are noted in the patient's lower extremities bilaterally. An ulceration is noted on the patient's left posterior heel, which appears to be a stage III pressure ulceration. The ulceration extends through all layers of the dermis and into the subcutaneous tissues. It does not appear to extend down to bone or fascia. There is a large amount of gangrenous, necrotic, and nonviable material. Wound margins are not well beveled. Dimensions are documented elsewhere. A disagreeable odor is noted. Neuro oriented x3 and CN's II-XII intact bilaterally Sensorium / Orientation: awake, alert, oriented to person, oriented to place and oriented to time Speech: speech normal Psych Appearance: grossly normal and appropriate Attitude: calm Activity / Motor Behavior: appropriate eye contact Speech: normal speech Mood & Affect: euthymic mood Thought Process: normal thought process Thought Content: normal thought content Attention / Concentration: attention grossly intact Debridement Note Debridement Note Wound debrided: Left posterior heel ulceration Laterality: Left Wound Grade/Stage: Stage III pressure ulcer Type of Debridement: Excisional debridement Anesthesia Used: 5% Lidocaine Gel and Cetacaine Depth: Down to and including healthy tissue and in the subcutaneous layer Percentage of wound debrided: 100 Instrument Used: 5mm curette, Forceps and - (Scissors) Tissue Removed: Necrotic, nonviable, and gangrenous material at the base of the ulceration Severity: Fat Layer Exposed Amount of bleeding with debridement: Mild Bleeding Controlled with: Compression and gauze Patient tolerated procedure: Patient tolerated procedure well Debridement Free Text: Sharp scissor dissection was used to excise additional necrotic and gangrenous material at the base of the ulceration. A small, remaining portion of the necrotic material was not excised to avoid patient discomfort and possible significant bleeding. Post-Debridement Measurements and Additional Note: Post-Debridement Measurements/Treatment WC - Nurse 1 - General Ulcer Assessment Start: 09/04/24 14:07 Freq: Status: Active Protocol: NAVI Activity Type Activity Date Activity User E-sign Co-sign Detail Recorded Client Recorded Date Recorded By Document 09/04/24 14:07 DL [id number] 09/04/24 14:27 DL Edit Result 09/04/24 14:07 DL (1) [id number] 09/04/24 14:37 DL Document 09/12/24 13:57 ML [id number] 09/12/24 14:24 ML Document 09/18/24 14:27 ML [id number] 09/18/24 14:29 ML (1) Height => 5 ft Weight => 170 lb 12.573 oz Weight in Pounds => 170.8 lbs Body Mass Index (BMI) => 33.3 BMI Classification => Obese 09/04/24 09/12/24 09/18/24 14:07 13:57 14:27 WC - Today's Visit Information Type of service Initial Visit Follow-up Visit Follow-up Visit (Physician/BEVERAGE SPECIALIST (Physician/BEVERAGE SPECIALIST ) ) Arrival Mode Wheelchair Wheelchair Wheelchair Transfer Assistance Manual Manual Patient Identification Verified (Name & Yes Yes ) Patient Requires Transmission-Based No No Precautions Height and Weight Height 5 ft Weight 170 lb 12.573 oz Weight in Pounds 170.8 lbs Body Mass Index (BMI) 33.3 33.3 33.3 BMI Classification Obese Obese Obese Vital Signs Temperature (97.8 F-99.1 F) 97.9 F 97.4 F L 98.1 F Temperature Source Temporal Temporal Temporal Pulse Rate (60-100) 70 65 72 Pulse Location Monitor Monitor Monitor Respiratory Rate (12-18) 18 14 14 Respiratory rate source Observation Observation Observation Blood Pressure (90/60-120/80) 142/70 H 145/68 H 138/65 H Blood Pressure Mean 94 93 89 Source Monitor Monitor Monitor Position Sitting Sitting Blood Pressure Location Right Arm Left Arm History Since Last Visit- (Skip if this is Patient's initial visit) Have you changed medications since your No No last visit? Any new allergies or adverse reactions No No Had a fall/change in ADL's that may No No increase risk of falls Signs or symptoms of abuse and/or No No neglect since last visit Have you been in the hospital since your No No last visit? Has dressing in place as prescribed Yes Yes Has compression in place as prescribed N/A N/A Has offloadiing in place as prescribed N/A N/A Experienced any changes in pain level or No No management Pain Scale: 0-10 Numeric Is Patient Pain Free? Yes Yes Yes Lower Extremity Assessment/ Foot Assessment/ Toe Nail Assessment Left -Posterior Tibial Palpable No -Posterior Tibial Doppler Multiphasic -Dorsalis Pedis Palpable No -Dorsalis Pedis Doppler Monophasic -Hair Growth on Legs No -Hair Growth on Toes No -Temperature of Extremity Warm -Capillary Refill Less than 3 Seconds -Dependent Rubor No -Blanched when Elevated No -Lipodermatosclerosis No -Other Deformity No -Prior Foot Ulcer No -Charcot Joint No -Prior Amputation No -Thick No -Discolored No -Deformed No -Improper Length & Hygeine No Right -Posterior Tibial Palpable No -Posterior Tibial Doppler Monophasic -Dorsalis Pedis Palpable No -Dorsalis Pedis Doppler Multiphasic -Extremity Color Normal -Hair Growth on Legs No -Hair Growth on Toes No -Temperature of Extremity Warm -Capillary Refill Less than 3 Seconds -Dependent Rubor No -Blanched when Elevated No -Lipodermatosclerosis No -Other Deformity No -Prior Foot Ulcer No -Charcot Joint No -Prior Amputation No -Thick No -Discolored No -Deformed No -Improper Length & Hygeine No Neuropathy Assessment Neuro Exam Unable to perform due to altered mental status Communication Assessment Preferred language Swazi Able to Read No Able to Write No Communication Tools None Right Hearing Abillity Hard of Hearing Left Hearing Abillity Hard of Hearing Visual Assistive Devices Glasses Teaching Assessment Preferences Verbal,Written, Demonstration Barriers to Learning None Readiness To Learn Poor Willingness to Engage in Self Management Low Activies Readiness to Engage in Self Management Low Activities Anxiety Level Calm Cooperation Cooperative Perception Confused Interest in Health Problem Uninterested Education Importance Acknowledges Need Does Patient Smoke tobacco or other No substances Smoking Status Never smoker Is Patient Diabetic Yes Functional Assessment Recent Decline in Ability to Perform Denies Any Declines Culture/Mandaen/Learning Disabilities Teacher Cultural/Mandaen Needs that may affect No Treatment Plan Would you allow our hospital winding rack operator to No meet you for the purpose of spiritual/ emotional support? Learning Disabilities Teacher to contact place of faith No Teaching: Wound Center Dressing Your Wound -Person Taught Patient *Welcome to the Wound Center -Person Taught Patient WC - Nurse 1 - General Ulcer Measurement Start: 09/04/24 14:07 Freq: Status: Active Protocol: Activity Type Activity Date Activity User E-sign Co-sign Detail Recorded Client Recorded Date Recorded By Document 09/04/24 14:07 DL [id number] 09/04/24 14:27 DL Document 09/12/24 13:57 ML [id number] 09/12/24 14:24 ML Document 09/18/24 14:27 ML [id number] 09/18/24 14:29 ML 09/04/24 09/12/24 09/18/24 14:07 13:57 14:27 Wound Center Nurse 1 #1 L Heel -Current Size (cm) - Length 2.2 2 1.2 -Current Size (cm) - Width 1.8 2 1.6 -Current Size (cm) - Depth 0.2 0.2 0.5 -Total Square Cm 3.96 4 1.92 -Photo Taken Yes -Classification - Thickness Unclassifiable (Eschar Covered ) -Exudate Amt Small Medium Large -Exudate Type Yellow/Green Serous -Wound Margin Thickened Distinct, Outline Attached -Granulation Amt None Present (0 Medium (34-66%) %) -Slough/Fibrin Yes Yes -Necrosis Amt Large (67-100%) Medium (34-66%) Medium (34-66%) -Necrotic Tissue Type Eschar Adherent Slough Adherent Slough -Structure Exposed N/A -Texture (Valorie-wound Skin Appearance) Scarring Assessed, Assessed Localized Edema -Moisture (Valorie-wound Skin Appearance) No Abnormality Assessed Assessed -Color (Valorie-wound Skin Appearance) Erythema Assessed Assessed -Temperature (Valorie-wound Skin No Abnormality No Abnormality No Abnormality Appearance) (Pt Warm) (Pt Warm) (Pt Warm) -Tenderness on Palpation (Valorie-wound No Yes Yes Skin Appearance) -Ulcer Cleansing Soap and Water Rinsed/ Soap and Water Irrigated with Saline -Foul Odor after Cleansing No Yes Yes -Anesthetic Used 5% Lidocaine 5% Lidocaine 5% Lidocaine Gel Gel Gel Right Calf (cm) 36.4 Right Ankle (cm) 29.9 Left Calf (cm) 39.3 43 Left Ankle (cm) 29.1 27.5 WC - Nurse 2 - General Ulcer CM Notes Start: 09/04/24 14:07 Freq: Status: Active Protocol: Activity Type Activity Date Activity User E-sign Co-sign Detail Recorded Client Recorded Date Recorded By Document 09/04/24 14:47 [id number] 09/04/24 15:07 Document 09/12/24 14:47 DS [id number] 09/12/24 14:52 DS Document 09/18/24 15:30 JF [id number] 09/18/24 15:31 09/04/24 09/12/24 09/18/24 14:47 14:47 15:30 Wound Center Nurse 2 #1 L Heel -Time 14:47 14:47 15:30 -Correct Patient Yes Yes Yes -Correct Side, Site, Position Yes Yes Yes -Correct Procedure Yes Yes Yes -Procedure Performed Yes Yes Yes -Type of Procedure Debridement Debridement Debridement -Clinical Debridement Subcutaneous Subcutaneous Subcutaneous -Tissue Removed Subcutaneous Subcutaneous Subcutaneous -Post Debridement (cm) - Length 1.7 1.6 1.4 -Post Debridement (cm) - Width 2.2 1.9 1.6 -Post Debridement (cm) - Depth 0.1 0.6 0.4 -Total Square (Post) (cm) 3.74 3.04 2.24 -Area of Debridement (cm) - Length 1.7 1.6 1.4 -Area of Debridement (cm) - Width 2.2 1.9 1.6 -Total Square (Area) (cm) 3.74 3.04 2.24 -Tunneling No No No -Undermining/Tunneling No No No -Circular Undermining No No No -Wound/Ulcer Outcome Not Healed Not Healed Not Healed -Ulcer Cleansing Rinsed/ Rinsed/ Rinsed/ Irrigated with Irrigated with Irrigated with Saline Saline Saline -Foul Odor after Cleansing No No No -Bioengineered Tissue No No No -Bleeding Controlled with Pressure Pressure Pressure -Treatment Response Procedure Procedure Tolerated Well Tolerated Well -Offloading No Yes -Type of Offloading Other -Other Type of Offloading multi-podus -Pressure Reduction Wheelchair cushion -Debridement - Subq, 1st 20sq cm Yes Yes Yes Pain Scale: 0-10 Numeric Is Patient Pain Free? Yes No Yes left heel -Description Throbbing -Intensity 5 -Duration (hours) Chronic -Pain Aggravating Factors Debridement -Alleviating Factors/Interventions Will continue to monitor, Emotional Support -Comments cetecaine used WC - Nurse 3 - General Ulcer D/C NN Start: 09/04/24 14:07 Freq: Status: Active Protocol: Activity Type Activity Date Activity User E-sign Co-sign Detail Recorded Client Recorded Date Recorded By Document 09/04/24 15:24 KW [id number] 09/04/24 15:25 KW Document 09/12/24 15:16 ML [id number] 09/12/24 15:17 ML Document 09/18/24 15:42 DL [id number] 09/18/24 15:44 DL 09/04/24 09/12/24 09/18/24 15:24 15:16 15:42 Wound Care Center Nurse 3 #1 L Heel -Ulcer Cleansing Rinsed/ Rinsed/ Irrigated with Irrigated with Saline Saline -Foul Odor after Cleansing No -Other Dressing santyl, abd hydrogel hydrogel today -Primary Dressing Covered/Secured with Dry Gauze & Dry Gauze & Dry Gauze & Roll Gauze, Roll Gauze, Roll Gauze, Secured with Secured with Secured with Tape Tape Tape -Other Covering santos -Wound Comment(s) Pt to resume santyl at home. Dressing applied today per Nyla Bueno. LLE -Compression Wrap Santos Wrap -Tubular Bandage Single Layer Single Layer -Size of Tubigrip Used Size E Size F -Size E ($) 1 -Size F ($) 1 Treatment Response Procedure Tolerated Well Pain Scale: 0-10 Numeric Is Patient Pain Free? Yes Yes Yes WC - Visit Discharge Discharge Condition Stable Stable Ambulatory Status Wheelchair Wheelchair Transportation Private Auto Private Auto Medication Reconcilliation completed & No provided to patient/care provider Clinical Summary of Care Provided Yes Lab / Micro Data 09/04/24 16:20 09/04/24 16:20 Charges/Coding Multi Select Codes Visit Charges Office Visit/Consults: 20780 OV L2 Est 10min Integumentary Integumentary CPT Codes: 67271 Shannon subq tissue 20 sq cm/< Assessment/Plan Assessment/Plan (1) Pressure ulcer of left heel, stage 3: CODE(S): L89.623 - Pressure ulcer of left heel, stage 3 (2) Diabetic ulcer of left foot: CODE(S): E11.621 - Type 2 diabetes mellitus with foot ulcer; L97.529 - Non-pressure chronic ulcer of other part of left foot with unspecified severity QUALIFIERS: Diabetic foot ulcer location: heel Diabetes mellitus type: type 2 Non-pressure ulcer stage: with fat layer exposed Qualified Code(s): E11.621 - Type 2 diabetes mellitus with foot ulcer; L97.422 - Non-pressure chronic ulcer of left heel and midfoot with fat layer exposed (3) Diabetes mellitus: CODE(S): E11.9 - Type 2 diabetes mellitus without complications (4) Swelling of lower extremity: CODE(S): M79.89 - Other specified soft tissue disorders (5) Lower extremity edema: CODE(S): R60.0 - Localized edema (6) Cerebrovascular disease: CODE(S): I67.9 - Cerebrovascular disease, unspecified (7) History of cerebrovascular accident: CODE(S): Z86.73 - Personal history of transient ischemic attack (TIA), and cerebral infarction without residual deficits (8) Hypertension: CODE(S): I10 - Essential (primary) hypertension (9) Chronic renal disease: CODE(S): N18.9 - Chronic kidney disease, unspecified (10) History of toe surgery: CODE(S): Z98.890 - Other specified postprocedural states (11) History of arthroplasty of left shoulder: CODE(S): Z96.612 - Presence of left artificial shoulder joint (12) History of partial hysterectomy: CODE(S): Z90.711 - Acquired absence of uterus with remaining cervical stump (13) History of cataract surgery: CODE(S): Z98.49 - Cataract extraction status, unspecified eye (14) History of total right knee replacement: CODE(S): Z96.651 - Presence of right artificial knee joint (15) History of lumbar surgery: CODE(S): Z98.890 - Other specified postprocedural states (16) Obesity (BMI 30.0-34.9): CODE(S): E66.811 - Obesity, class 1 PLAN: Plan This is a 74-year-old obese, diabetic female who presented with an ulceration on the left posterior heel, which had been present for the better part of 1 year. The patient and her family had been using Silvadene topically prior to initial presentation. The ulceration had been noted to worsen over the 3 weeks prior to presentation. The ulceration appears to be related to pressure, as it is located at a site which would normally rest against the bed surface when she is in the recumbent position. Management recommendations have been discussed with the patient, and her family at the bedside. Offloading measures are to be continued. The patient's family has been advised to use a rolled towel or blanket on her posterior calf to lift her posterior heel off of the bed surface. In addition, it has been recommended that they acquire a Podus boot, which they have done. The Podus boot will protect the patient's heel from trauma and pressure. We have prescribed collagenase Santyl to be used topically on a daily basis. Collagenase Santyl applied topically will provide enzymatic debridement, and is anticipated for use over the next several weeks. The patient's family has been instructed in the appropriate means of application. The patient has been advised to optimize her glycemic control and her nutritional intake. The patient's hemoglobin A1c, obtained on September 04, 2024, was 12.5. A discussion has been undertaken with the patient and her family informing them that this is indicative of recent poor control of her diabetic condition. So as to assist in the management of the patient's diabetes, the patient's recent laboratory results have been forwarded to her primary care physician, Dr. Frank, and the patient and her family have been encouraged to collaborate with Dr. Frank regarding diabetes management. A nutritional supplement such as Glucerna has been advised. 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 These findings do not appear to be a significant impediment to wound healing. The patient has been advised to elevate her lower extremities as much as possible. Elevation is to be to heart level, or higher. Elevation is to be during both daytime and nighttime hours. Prolonged idle sitting has been discouraged. Ambulation has been encouraged, although the patient is extremely limited in her capacity. A Tubigrip compression garment is to be donned on a daily basis. The culture results from the patient's visit 1 week ago have been reviewed, and discussed with the patient and her family. Culture was positive for Morganella morganii and Staphylococcus aureus. Based upon sensitivity results, the patient has been placed on Trimethoprim/Sulfamethoxazole double strength, to be taken twice a day for 14 days. The patient has started on this medication. Because of a possible interaction with her current medications, electrolytes are to be obtained in 1 week, with particular attention to the patient's serum potassium level. The patient is return in 1 week for reevaluation. Total time: 28 minutes
== END 2024-09-21 23:59 | disposition home or self-care (01) ==
LOC: WC 14:15
PROVIDERS: PCP Family Medicine; Referring Provider Family Medicine; Visit Provider Surgery
DX: L89.623 Pressure ulcer of left heel, stage 3 (principal); E11.52 Type 2 diabetes mellitus with diabetic peripheral angiopathy with gangrene; E11.22 Type 2 diabetes mellitus with diabetic chronic kidney disease; E66.811 Obesity, class 1; N18.9 Chronic kidney disease, unspecified; I12.9 Hypertensive chronic kidney disease with stage 1 through stage 4 chronic kidney disease, or unspecified chronic kidney disease; Z68.33 Body mass index [BMI] 33.0-33.9, adult; Z79.84 Long term (current) use of oral hypoglycemic drugs; R60.0 Localized edema
CPT/HCPCS: 11042; 36415; 80053; 83036; 85027; 87070; 87075; 87077; 87186; 87205; 93923; 99203; G0463

== ENCOUNTER → 2024-10-09 | Outpatient (CLI) | payer OTHER, SELFPAY ==
--- NOTE | 2024-10-09 14:02 | RAD_ITS ---
PROCEDURE: FOOT MIN 3 VIEWS 10/09/2024 REASON FOR EXAM: L HEEL ULCER/R/O OSTEOMYELITIS TECHNIQUE: FOOT MIN 3 VIEWS COMPARISON: None. FINDINGS: Soft tissue edema and swelling. Unremarkable metallic screw with arthrodesis of the proximal and distal interphalangeal joints of the 2nd toe. Calcaneal spur formation. Mild osteopenia of the visualized bones. Degenerative joint disease. No fracture or dislocation is seen. No lytic or blastic bone lesion is noted. RAD/Foot min 3 Views IMPRESSION: Soft tissue edema and swelling. No radiographic evidence of osteomyelitis. [facility]
== END | disposition home or self-care (01) ==
LOC: RAD 13:58
PROVIDERS: PCP Family Medicine; Referring Provider Surgery; Visit Provider Surgery
DX: L97.529 Non-pressure chronic ulcer of other part of left foot with unspecified severity (principal)
CPT/HCPCS: 73630

== ENCOUNTER 2024-10-16 15:00 | Outpatient (RCR) | payer OTHER, SELFPAY ==
[2024-09-22 00:24] VITALS: BP 138/65; PULSE 72; RESP 14; TEMP 36.7; BMI 33.3
[2024-09-25 13:20] VITALS: BP 129/63; PULSE 58; RESP 18; TEMP 35.7; BMI 33.3
--- NOTE | 2024-09-25 14:29 | WC ---
PHOTO 09/25/24 LEFT HEEL
--- NOTE | 2024-09-26 08:50 | PCM.WC.HP ---
History of Present Illness Date of Service: 09/25/24 Chief Complaint: Diabetic left foot ulceration due to pressure History of Wound: This is a 74-year-old obese, diabetic female who presented with an ulceration on her left posterior heel. According to the patient, her , and her adult daughter, the ulceration has been present for the better part of 1 year. It has waxed and waned, and has, at times, appeared to be nearly healed. Approximately 3 weeks prior to presentation, the ulceration was noted to be much worse. The ulceration started as a blister. The patient and her family had been using Silvadene topically. The patient is immobile, unable to due to a prior cerebrovascular accident. She claims to sleep in a recliner. She sits in idle fashion throughout the day. She suffers from chronic swelling and edema in her lower extremities, which is noted to be worse late in the day. She possesses graduated compression stockings, which are not worn on a regular basis, and the degree of compression of which is not known. The patient has a history of cerebrovascular accident, renal disease, and hypertension. Her history is negative for myocardial infarction, congestive heart failure, pulmonary disease, and thyroid disease. [facility] Medical History Obesity (BMI 30.0-34.9) Chronic renal disease Hypertension Lower extremity edema Swelling of lower extremity History of cerebrovascular accident Cerebrovascular disease Diabetes mellitus Pressure ulcer of left heel, stage 3 Diabetic ulcer of left foot Home Medications ?Medication ?Instructions ?Recorded ?Last Taken ?Type atenolol 25 mg tablet 25 mg PO DAILY BP MED 03/13/17 05/18/20 History lisinopril 20 mg tablet 40 mg PO QHS BP MED 03/13/17 05/17/20 History pramipexole 0.5 mg tablet (Mirapex) 0.5 mg PO QHS restless legs 03/13/17 05/17/20 History aspirin 81 mg chewable tablet 81 mg PO DAILY@0800 health 05/18/20 05/18/20 History maintenance furosemide 40 mg tablet 40 mg PO DAILY diuretic 05/18/20 05/18/20 History insulin human U-100 NPH-regulr 10 units SQ DINNER diabetes 05/18/20 05/17/20 History 70-30 mix 100 unit/mL subcutaneous susp insulin human U-100 NPH-regulr 20 units SQ DAILY diabetes 05/18/20 05/18/20 History 70-30 mix 100 unit/mL subcutaneous susp potassium chloride 10 mEq 10 meq PO DAILY supplement 05/18/20 05/18/20 History capsule,extended release glipizide 5 mg tablet 5 mg PO 09/04/24 Unknown History lorazepam 0.5 mg tablet (Ativan) 0.5 mg PO Q4H PRN anxiety 09/04/24 Unknown History metolazone 2.5 mg tablet 2.5 mg PO 09/04/24 Unknown History sulfamethoxazole 800 1 tab PO Q12H #28 TABLETS 09/16/24 Unknown Rx mg-trimethoprim 160 mg tablet (Bactrim DS) metronidazole 500 mg tablet 500 mg PO Q8H Infected foot wound 09/24/24 Unknown Rx #30 tabs Allergy/AdvReac Type Severity Reaction Status Date / Time pravastatin AdvReac muscle and Verified 09/04/24 14:31 leg pain Surgical History History of lumbar surgery History of total right knee replacement History of cataract surgery History of partial hysterectomy History of arthroplasty of left shoulder History of toe surgery Social History Smoking Status: Never smoker Vital Signs Vital Signs Vital Signs: 09/25/24 13:20 Temperature 96.3 F L Temperature Source Temporal Pulse Rate 58 L Respiratory Rate 18 Blood Pressure 129/63 H Blood Pressure Mean 85 Blood Pressure Source Monitor Blood Pressure Position Semi-Fowlers Blood Pressure Location Left Arm Oxygen Delivery Method Room Air Weight Weight: 170 lb 12.573 oz Body Mass Index (BMI) 33.3 Physical Exam Const alert, oriented x3 and no apparent distress Constitutional Narrative: The patient's abdomen appears to be obese. Her BMI is 33.4. She is debilitated, with limitations in mobility. General Appearance: cooperative, comfortable and well developed Orientation / Consciousness: awake and oriented to person HEENT normocephalic and head/scalp atraumatic Head and Scalp: normal to inspection, normocephalic and atraumatic Face and Sinus: normal facial exam Nose: external nose normal External Ear: external ears normal Eyes EOMs intact bilaterally General Eye: normal appearance of both eyes Resp normal respiratory effort, normal air movement, no retractions and no use of accessory muscles Effort and Inspection: able to speak in complete sentences Extremity no calf tenderness General Extremity: Negative for clubbing or cyanosis Skin Wound Narrative: Moderate swelling and edema are noted in the patient's lower extremities bilaterally. An ulceration is noted on the patient's left posterior heel, which appears to be a stage III pressure ulceration. The ulceration extends through all layers of the dermis and into the subcutaneous tissues. It does not appear to extend down to bone or fascia. There is a moderate amount of gangrenous, necrotic, and nonviable material. However, there is evidence of improvement since the patient's prior visit 1 week ago. The amount of necrotic and nonviable material has diminished, and there is no evidence of pink, healthy granulation tissue at the base of the ulceration. Valorie-ulcer erythema persists. Wound margins are not well beveled. Dimensions are documented elsewhere. The disagreeable odor which had been noted at prior visits is no longer present. Neuro oriented x3 and CN's II-XII intact bilaterally Sensorium / Orientation: awake, alert, oriented to person, oriented to place and oriented to time Speech: speech normal Psych Appearance: grossly normal and appropriate Attitude: calm Activity / Motor Behavior: appropriate eye contact Speech: normal speech Mood & Affect: euthymic mood Thought Process: normal thought process Thought Content: normal thought content Attention / Concentration: attention grossly intact Debridement Note Debridement Note Wound debrided: Left posterior heel ulceration Laterality: Left Wound Grade/Stage: Stage III pressure ulcer Type of Debridement: Excisional debridement Anesthesia Used: 5% Lidocaine Gel and Cetacaine Depth: Down to and including healthy tissue and in the subcutaneous layer Percentage of wound debrided: 100 Instrument Used: 5mm curette Tissue Removed: Necrotic, nonviable, and gangrenous material at the base of the ulceration Severity: Fat Layer Exposed Amount of bleeding with debridement: Mild Bleeding Controlled with: Compression and gauze Patient tolerated procedure: Patient tolerated procedure well Post-Debridement Measurements and Additional Note: Post-Debridement Measurements/Treatment RACHAEL - Nurse 1 - General Ulcer Assessment Start: 09/25/24 13:20 Freq: Status: Active Protocol: NAVI Activity Type Activity Date Activity User E-sign Co-sign Detail Recorded Client Recorded Date Recorded By Document 09/25/24 13:20 KATHIE [id number] 09/25/24 13:27 KW 09/25/24 13:20 - Today's Visit Information Type of service Follow-up Visit (Physician/[employer] ) Arrival Mode Wheelchair Transfer Assistance Manual Accompanied by FAMILY Patient Identification Verified (Name & Yes ) Height and Weight Body Mass Index (BMI) 33.3 BMI Classification Obese Vital Signs Temperature (97.8 F-99.1 F) 96.3 F L Temperature Source Temporal Pulse Rate (60-100) 58 L Pulse Location Monitor Respiratory Rate (12-18) 18 Respiratory rate source Monitor Oxygen Delivery Method Room Air Blood Pressure (90/60-120/80) 129/63 H Blood Pressure Mean 85 Source Monitor Position Semi-Fowlers Blood Pressure Location Left Arm History Since Last Visit- (Skip if this is Patient's initial visit) Have you changed medications since your No last visit? Any new allergies or adverse reactions No Had a fall/change in ADL's that may No increase risk of falls Signs or symptoms of abuse and/or No neglect since last visit Have you been in the hospital since your No last visit? Has dressing in place as prescribed Yes Has compression in place as prescribed Yes Has offloadiing in place as prescribed Yes Experienced any changes in pain level or No management Left Footwear Multipodus Splint/Boot Right Footwear Regular Shoe Pain Scale: 0-10 Numeric Is Patient Pain Free? Yes - Nurse 1 - General Ulcer Measurement Start: 09/25/24 13:20 Freq: Status: Active Protocol: Activity Type Activity Date Activity User E-sign Co-sign Detail Recorded Client Recorded Date Recorded By Document 09/25/24 13:20 [id number] 09/25/24 13:27 09/25/24 13:20 Wound Center Nurse 1 #1 L Heel -Current Size (cm) - Length 1.5 -Current Size (cm) - Width 1.3 -Current Size (cm) - Depth 0.4 -Total Square Cm 1.95 -Epithelialization Small 1-33% -Exudate Amt Small -Exudate Type Serosanguineous -Wound Margin Thickened -Granulation Amt Small (1-33%) -Granulation Quality [place] -Necrosis Amt Large (67-100%) -Necrotic Tissue Type Adherent Slough -Texture (Valorie-wound Skin Appearance) Assessed -Moisture (Valorie-wound Skin Appearance) Assessed, Maceration -Color (Valorie-wound Skin Appearance) Assessed -Temperature (Valorie-wound Skin No Abnormality Appearance) (Pt Warm) -Tenderness on Palpation (Valorie-wound No Skin Appearance) -Ulcer Cleansing Soap and Water -Foul Odor after Cleansing No -Anesthetic Used 5% Lidocaine Gel - Nurse 2 - General Ulcer CM Notes Start: 09/25/24 13:20 Freq: Status: Active Protocol: Activity Type Activity Date Activity User E-sign Co-sign Detail Recorded Client Recorded Date Recorded By Document 09/25/24 13:46 [id number] 09/25/24 13:57 09/25/24 13:46 Wound Center Nurse 2 -Time 13:51 -Correct Patient Yes -Correct Side, Site, Position Yes -Correct Procedure Yes -Procedure Performed Yes -Type of Procedure Debridement -Clinical Debridement Subcutaneous -Tissue Removed Subcutaneous -Post Debridement (cm) - Length 1.5 -Post Debridement (cm) - Width 1.5 -Post Debridement (cm) - Depth 0.6 -Total Square (Post) (cm) 2.25 -Area of Debridement (cm) - Length 1.5 -Area of Debridement (cm) - Width 1.5 -Total Square (Area) (cm) 2.25 -Tunneling No -Undermining/Tunneling No -Circular Undermining No -Wound/Ulcer Outcome Not Healed -Ulcer Cleansing Rinsed/ Irrigated with Saline -Foul Odor after Cleansing No -Bioengineered Tissue No -Bleeding Controlled with Pressure -Treatment Response Procedure Tolerated Well -Offloading No -Debridement - Subq, 1st 20sq cm Yes Pain Scale: 0-10 Numeric Is Patient Pain Free? Yes RACHAEL - Nurse 3 - General Ulcer D/C NN Start: 09/25/24 13:20 Freq: Status: Active Protocol: Activity Type Activity Date Activity User E-sign Co-sign Detail Recorded Client Recorded Date Recorded By Document 09/25/24 14:18 [id number] 09/25/24 14:19 09/25/24 14:18 Wound Care Center Nurse 3 #1 L Heel -Ulcer Cleansing Not Cleansed -Primary Dressing Covered/Secured with Dry Gauze & Roll Gauze, Secured with Tape -Other Covering SANTYL APPLIED LLE -Lotion applied to leg before No compression wrap -Compression Wrap [place] Wrap -Tubular Bandage Single Layer -Size of Tubigrip Used Size E -Size E ($) 1 Pain Scale: 0-10 Numeric Is Patient Pain Free? Yes WC - Visit Discharge Discharge Condition Stable Ambulatory Status Wheelchair Transportation Private Auto Charges/Coding Multi Select Codes Visit Charges Office Visit/Consults: 80390 OV L3 Est 20min Integumentary Integumentary CPT Codes: 49922 Shannon subq tissue 20 sq cm/< Assessment/Plan Assessment/Plan (1) Pressure ulcer of left heel, stage 3: CODE(S): L89.623 - Pressure ulcer of left heel, stage 3 (2) Diabetic ulcer of left foot: CODE(S): E11.621 - Type 2 diabetes mellitus with foot ulcer; L97.529 - Non-pressure chronic ulcer of other part of left foot with unspecified severity QUALIFIERS: Diabetic foot ulcer location: heel Diabetes mellitus type: type 2 Non-pressure ulcer stage: with fat layer exposed Qualified Code(s): E11.621 - Type 2 diabetes mellitus with foot ulcer; L97.422 - Non-pressure chronic ulcer of left heel and midfoot with fat layer exposed (3) Diabetes mellitus: CODE(S): E11.9 - Type 2 diabetes mellitus without complications (4) Swelling of lower extremity: CODE(S): M79.89 - Other specified soft tissue disorders (5) Lower extremity edema: CODE(S): R60.0 - Localized edema (6) Cerebrovascular disease: CODE(S): I67.9 - Cerebrovascular disease, unspecified (7) History of cerebrovascular accident: CODE(S): Z86.73 - Personal history of transient ischemic attack (TIA), and cerebral infarction without residual deficits (8) Hypertension: CODE(S): I10 - Essential (primary) hypertension (9) Chronic renal disease: CODE(S): N18.9 - Chronic kidney disease, unspecified (10) History of toe surgery: CODE(S): Z98.890 - Other specified postprocedural states (11) History of arthroplasty of left shoulder: CODE(S): Z96.612 - Presence of left artificial shoulder joint (12) History of partial hysterectomy: CODE(S): Z90.711 - Acquired absence of uterus with remaining cervical stump (13) History of cataract surgery: CODE(S): Z98.49 - Cataract extraction status, unspecified eye (14) History of total right knee replacement: CODE(S): Z96.651 - Presence of right artificial knee joint (15) History of lumbar surgery: CODE(S): Z98.890 - Other specified postprocedural states (16) Obesity (BMI 30.0-34.9): CODE(S): E66.811 - Obesity, class 1 PLAN: Plan This is a 74-year-old obese, diabetic female who presented with an ulceration on the left posterior heel, which had been present for the better part of 1 year. The patient and her family had been using Silvadene topically prior to initial presentation. The ulceration had been noted to worsen over the 3 weeks prior to presentation. The ulceration appears to be related to pressure, as it is located at a site which would normally rest against the bed surface when she is in the recumbent position. Management recommendations have been discussed with the patient, and her family, at the bedside. Offloading measures are to be continued. The patient's family has been advised to use a rolled towel or blanket on her posterior calf to lift her posterior heel off of the bed surface. In addition, it has been recommended that they acquire a Podus boot, which they have done. The Podus boot will protect the patient's heel from trauma and pressure. We have prescribed collagenase Santyl to be used topically on a daily basis. Collagenase Santyl applied topically will provide enzymatic debridement, and is anticipated for use over the next several weeks. The patient's family has been instructed in the appropriate means of application. The patient has been advised to optimize her glycemic control and her nutritional intake. The patient's hemoglobin A1c, obtained on September 04, 2024, was 12.5. A discussion has been undertaken with the patient and her family informing them that this is indicative of recent poor control of her diabetic condition. So as to assist in the management of the patient's diabetes, the patient's recent laboratory results have been forwarded to her primary care physician, Dr. Frank, and the patient and her family have been encouraged to collaborate with Dr. Frank regarding diabetes management. A nutritional supplement such as Glucerna has been advised. 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 These findings do not appear to be a significant impediment to wound healing. The patient has been advised to elevate her lower extremities as much as possible. Elevation is to be to heart level, or higher. Elevation is to be during both daytime and nighttime hours. Prolonged idle sitting has been discouraged. Ambulation has been encouraged, although the patient is extremely limited in her capacity. A Tubigrip compression garment is to be donned on a daily basis. The recent culture results have been reviewed, and discussed with the patient and her family. Culture was positive for Morganella morganii and Staphylococcus aureus. Based upon sensitivity results, the patient was placed on Trimethoprim/Sulfamethoxazole double strength, to be taken twice a day for 14 days. Several days later, anaerobic bacteria were isolated, including Bacteroides fragilis and Scha[place] canis. Flagyl 500 mg p.o. 3 times daily for a total of 10 days was then prescribed relative to the anaerobic bacterial isolates. Because of a possible interaction with the patient's current medications while on Bactrim, electrolytes were obtained on September 20, 2024. It was seen that the patient's potassium level increased from 4.9 on September 04, 2024, to 5.8 on September 20, 2024. Therefore, after discussion with a clinical pharmacist at [facility], the decision was made to abandon the use of Bactrim and Flagyl in favor of Augmentin 500/125 every 12 hours. The patient's recent lab results reveal evidence of renal impairment, with a BUN of 78 and a creatinine of 3.45. The patient's Augmentin dose has been adjusted based upon calculated creatinine clearance. A prescription for Augmentin will be forwarded to the patient's pharmacy. Medical records will be sent to the patient's primary care physician, Dr. Frank, so he is aware of the recent updates to the patient's medical condition, as well as her most recent laboratory results. Medical management regarding diabetes mellitus, electrolytes, and renal function will be deferred to Dr. Frank. The patient and her family have been advised to seek an appointment with Dr. Frank for evaluation in this regard. The patient is to return in 1 week for reevaluation relative to her left heel ulceration. Total time: 28 minutes
[2024-10-02 13:38] VITALS: BP 127/67; PULSE 57; RESP 16; TEMP 36.6; BMI 33.3
--- NOTE | 2024-10-02 14:45 | WC ---
PHOTO LEFT HEEL 10/02/24
--- NOTE | 2024-10-03 12:22 | PCM.WC.HP ---
History of Present Illness Date of Service: 10/02/24 Chief Complaint: Diabetic left foot ulceration due to pressure History of Wound: This is a 74-year-old obese, diabetic female who presented with an ulceration on her left posterior heel. According to the patient, her , and her adult daughter, the ulceration has been present for the better part of 1 year. It has waxed and waned, and has, at times, appeared to be nearly healed. Approximately 3 weeks prior to presentation, the ulceration was noted to be much worse. The ulceration started as a blister. The patient and her family had been using Silvadene topically. The patient is immobile, unable to due to a prior cerebrovascular accident. She claims to sleep in a recliner. She sits in idle fashion throughout the day. She suffers from chronic swelling and edema in her lower extremities, which is noted to be worse late in the day. She possesses graduated compression stockings, which are not worn on a regular basis, and the degree of compression of which is not known. The patient has a history of cerebrovascular accident, renal disease, and hypertension. Her history is negative for myocardial infarction, congestive heart failure, pulmonary disease, and thyroid disease. [facility] Medical History (Updated 10/03/24 @ 12:[address] Eugenio Wang MD) Pressure ulcer of left heel, stage 4 Obesity (BMI 30.0-34.9) Chronic renal disease Hypertension Lower extremity edema Swelling of lower extremity History of cerebrovascular accident Cerebrovascular disease Diabetes mellitus Pressure ulcer of left heel, stage 3 Diabetic ulcer of left foot Home Medications ?Medication ?Instructions ?Recorded ?Last Taken ?Type atenolol 25 mg tablet 25 mg PO DAILY BP MED 03/13/17 05/18/20 History lisinopril 20 mg tablet 40 mg PO QHS BP MED 03/13/17 05/17/20 History pramipexole 0.5 mg tablet (Mirapex) 0.5 mg PO QHS restless legs 03/13/17 05/17/20 History aspirin 81 mg chewable tablet 81 mg PO DAILY@0800 health 05/18/20 05/18/20 History maintenance furosemide 40 mg tablet 40 mg PO DAILY diuretic 05/18/20 05/18/20 History insulin human U-100 NPH-regulr 10 units SQ DINNER diabetes 05/18/20 05/17/20 History 70-30 mix 100 unit/mL subcutaneous susp insulin human U-100 NPH-regulr 20 units SQ DAILY diabetes 05/18/20 05/18/20 History 70-30 mix 100 unit/mL subcutaneous susp potassium chloride 10 mEq 10 meq PO DAILY supplement 05/18/20 05/18/20 History capsule,extended release glipizide 5 mg tablet 5 mg PO 09/04/24 Unknown History lorazepam 0.5 mg tablet (Ativan) 0.5 mg PO Q4H PRN anxiety 09/04/24 Unknown History metolazone 2.5 mg tablet 2.5 mg PO 09/04/24 Unknown History sulfamethoxazole 800 1 tab PO Q12H #28 TABLETS 09/16/24 Unknown Rx mg-trimethoprim 160 mg tablet (Bactrim DS) metronidazole 500 mg tablet 500 mg PO Q8H Infected foot wound 09/24/24 Unknown Rx #30 tabs amoxicillin 500 mg-potassium 1 tab PO Q12H Wound infection #24 09/26/24 Unknown Rx clavulanate 125 mg tablet tabs (Augmentin) Allergy/AdvReac Type Severity Reaction Status Date / Time pravastatin AdvReac muscle and Verified 09/04/24 14:31 leg pain Surgical History History of lumbar surgery History of total right knee replacement History of cataract surgery History of partial hysterectomy History of arthroplasty of left shoulder History of toe surgery Social History Smoking Status: Never smoker Vital Signs Vital Signs Vital Signs: 10/02/24 13:38 Temperature 97.9 F Temperature Source Temporal Pulse Rate 57 L Respiratory Rate 16 Blood Pressure 127/67 H Blood Pressure Mean 87 Blood Pressure Source Monitor Blood Pressure Position Sitting Blood Pressure Location Left Arm Oxygen Delivery Method Room Air Weight Weight: 170 lb 12.573 oz Body Mass Index (BMI) 33.3 Physical Exam Const alert, oriented x3 and no apparent distress Constitutional Narrative: The patient's abdomen appears to be obese. Her BMI is 33.4. She is debilitated, with limitations in mobility. General Appearance: cooperative, comfortable and well developed Orientation / Consciousness: awake and oriented to person HEENT normocephalic and head/scalp atraumatic Head and Scalp: normal to inspection, normocephalic and atraumatic Face and Sinus: normal facial exam Nose: external nose normal External Ear: external ears normal Eyes EOMs intact bilaterally General Eye: normal appearance of both eyes Resp normal respiratory effort, normal air movement, no retractions and no use of accessory muscles Effort and Inspection: able to speak in complete sentences Extremity no calf tenderness General Extremity: Negative for clubbing or cyanosis Skin Wound Narrative: Moderate swelling and edema are noted in the patient's lower extremities bilaterally. An ulceration is noted on the patient's left posterior heel, which appears to be a stage IV pressure ulceration. The ulceration extends through all layers of the dermis and subcutaneous tissues, and down to fascial level. There is a moderate amount of gangrenous, necrotic, and nonviable material. Mild valorie-ulcer erythema persists. Ulcer margins are not well beveled. Dimensions are documented elsewhere. The disagreeable odor which had been noted at prior visits is no longer present. Neuro oriented x3 and CN's II-XII intact bilaterally Sensorium / Orientation: awake, alert, oriented to person, oriented to place and oriented to time Speech: speech normal Psych Appearance: grossly normal and appropriate Attitude: calm Activity / Motor Behavior: appropriate eye contact Speech: normal speech Mood & Affect: euthymic mood Thought Process: normal thought process Thought Content: normal thought content Attention / Concentration: attention grossly intact Debridement Note Debridement Note Wound debrided: Left posterior heel ulceration Laterality: Left Wound Grade/Stage: Stage IV pressure ulcer Type of Debridement: Excisional debridement Anesthesia Used: 5% Lidocaine Gel and Cetacaine Depth: Down to and including healthy tissue and in the subcutaneous layer Percentage of wound debrided: 100 Instrument Used: 5mm curette, Forceps and - (Scissors) Tissue Removed: Necrotic, nonviable, and gangrenous material at the base of the ulceration Severity: Necrosis of Muscle Amount of bleeding with debridement: Mild Bleeding Controlled with: Compression and gauze Patient tolerated procedure: Patient tolerated procedure well Post-Debridement Measurements and Additional Note: Post-Debridement Measurements/Treatment WC - Nurse 1 - General Ulcer Assessment Start: 09/25/24 13:20 Freq: Status: Active Protocol: NAVI Activity Type Activity Date Activity User E-sign Co-sign Detail Recorded Client Recorded Date Recorded By Document 09/25/24 13:20 KW [id number] 09/25/24 13:27 KW Document 10/02/24 13:38 [facility] [id number] 10/02/24 13:48 [facility] 09/25/24 10/02/24 13:20 13:38 - Today's Visit Information Type of service Follow-up Visit Follow-up Visit (Physician/[employer] (Physician/[employer] ) ) Arrival Mode Wheelchair Wheelchair Transfer Assistance Manual Other Transfer Assist (Other) 3 max assist Accompanied by FAMILY and daughter Patient Identification Verified (Name & Yes Yes ) Height and Weight Body Mass Index (BMI) 33.3 33.3 BMI Classification Obese Obese Vital Signs Temperature (97.8 F-99.1 F) 96.3 F L 97.9 F Temperature Source Temporal Temporal Pulse Rate (60-100) 58 L 57 L Pulse Location Monitor Monitor Respiratory Rate (12-18) 18 16 Respiratory rate source Monitor Observation Oxygen Delivery Method Room Air Room Air Blood Pressure (90/60-120/80) 129/63 H 127/67 H Blood Pressure Mean 85 87 Source Monitor Monitor Position Semi-Fowlers Sitting Blood Pressure Location Left Arm Left Arm History Since Last Visit- (Skip if this is Patient's initial visit) Have you changed medications since your No No last visit? Any new allergies or adverse reactions No No Had a fall/change in ADL's that may No No increase risk of falls Signs or symptoms of abuse and/or No No neglect since last visit Have you been in the hospital since your No No last visit? Has dressing in place as prescribed Yes Yes Has compression in place as prescribed Yes N/A Has offloadiing in place as prescribed Yes Experienced any changes in pain level or No No management Left Footwear Multipodus Multipodus Splint/Boot Splint/Boot Right Footwear Regular Shoe Slipper Pain Scale: 0-10 Numeric Is Patient Pain Free? Yes Yes - Nurse 1 - General Ulcer Measurement Start: 09/25/24 13:20 Freq: Status: Active Protocol: Activity Type Activity Date Activity User E-sign Co-sign Detail Recorded Client Recorded Date Recorded By Document 09/25/24 13:20 KW [id number] 09/25/24 13:27 KW Document 10/02/24 13:38 [facility] [id number] 10/02/24 13:48 [facility] 09/25/24 10/02/24 13:20 13:38 Wound Center Nurse 1 #1 L Heel -Combined with other wound No -Current Size (cm) - Length 1.5 1 -Current Size (cm) - Width 1.3 1.6 -Current Size (cm) - Depth 0.4 0.3 -Total Square Cm 1.95 1.6 -Date of Last Picture (Recall this 10/02/24 field) -Photo Taken Yes -Epithelialization Small 1-33% Small 1-33% -Tunneling No -Undermining/Tunneling No -Circular Undermining No -Exudate Amt Small Medium -Exudate Type Serosanguineous Serosanguineous -Wound Margin Thickened Distinct, Outline Attached -Granulation Amt Small (1-33%) Small (1-33%) -Granulation Quality [place] Red -Slough/Fibrin Yes -Necrosis Amt Large (67-100%) Large (67-100%) -Necrotic Tissue Type Adherent Slough Adherent Slough -Texture (Valorie-wound Skin Appearance) Assessed Assessed -Moisture (Valorie-wound Skin Appearance) Assessed, Assessed Maceration -Color (Valorie-wound Skin Appearance) Assessed Assessed -Temperature (Valorie-wound Skin No Abnormality No Abnormality Appearance) (Pt Warm) (Pt Warm) -Tenderness on Palpation (Valorie-wound No No Skin Appearance) -Ulcer Cleansing Soap and Water Rinsed/ Irrigated with Saline -Foul Odor after Cleansing No No -Anesthetic Used 5% Lidocaine 5% Lidocaine Gel Gel WC - Nurse 2 - General Ulcer CM Notes Start: 09/25/24 13:20 Freq: Status: Active Protocol: Activity Type Activity Date Activity User E-sign Co-sign Detail Recorded Client Recorded Date Recorded By Document 09/25/24 13:46 [id number] 09/25/24 13:57 Document 10/02/24 14:58 [id number] 10/02/24 15:02 DS 09/25/24 10/02/24 13:46 14:58 Wound Center Nurse 2 #1 L Heel -Time 13:51 14:58 -Correct Patient Yes Yes -Correct Side, Site, Position Yes Yes -Correct Procedure Yes Yes -Procedure Performed Yes Yes -Type of Procedure Debridement Debridement -Clinical Debridement Subcutaneous Muscle / Fascia -Tissue Removed Subcutaneous Fascia -Post Debridement (cm) - Length 1.5 1.2 -Post Debridement (cm) - Width 1.5 2.0 -Post Debridement (cm) - Depth 0.6 0.6 -Total Square (Post) (cm) 2.25 2.40 -Area of Debridement (cm) - Length 1.5 1.2 -Area of Debridement (cm) - Width 1.5 2.0 -Total Square (Area) (cm) 2.25 2.40 -Tunneling No No -Undermining/Tunneling No No -Circular Undermining No No -Wound/Ulcer Outcome Not Healed Not Healed -Ulcer Cleansing Rinsed/ Rinsed/ Irrigated with Irrigated with Saline Saline -Foul Odor after Cleansing No No -Bioengineered Tissue No No -Bleeding Controlled with Pressure Pressure -Treatment Response Procedure Procedure Tolerated Well Tolerated Well -Offloading No -Debridement - Subq, 1st 20sq cm Yes No -Debridement - Muscle / Fascia, 1st Yes 20sq cm Pain Scale: 0-10 Numeric Is Patient Pain Free? Yes Yes - Nurse 3 - General Ulcer D/C NN Start: 09/25/24 13:20 Freq: Status: Active Protocol: Activity Type Activity Date Activity User E-sign Co-sign Detail Recorded Client Recorded Date Recorded By Document 09/25/24 14:18 [id number] 09/25/24 14:19 Document 10/02/24 15:08 [id number] 10/02/24 15:08 09/25/24 10/02/24 14:18 15:08 Wound Care Center Nurse 3 #1 L Heel -Ulcer Cleansing Not Cleansed -Other Dressing santyl -Primary Dressing Covered/Secured with Dry Gauze & Dry Gauze & Roll Gauze, Roll Gauze, Secured with Secured with Tape Tape -Other Covering SANTYL APPLIED LLE -Lotion applied to leg before No compression wrap -Compression Wrap Santos Wrap -Tubular Bandage Single Layer Single Layer -Size of Tubigrip Used Size E Size E -Size E ($) 1 1 Pain Scale: 0-10 Numeric Is Patient Pain Free? Yes Yes - Visit Discharge Discharge Condition Stable Stable Ambulatory Status Wheelchair Wheelchair Transportation Private Auto Private Auto Medication Reconcilliation completed & No provided to patient/care provider Clinical Summary of Care Provided Yes Charges/Coding Procedures Integumentary [id number]: [id number] [place] musc/fascia 20 sq cm/< Assessment/Plan Assessment/Plan (1) Pressure ulcer of left heel, stage 4: CODE(S): L89.624 - Pressure ulcer of left heel, stage 4 (2) Diabetic ulcer of left foot: CODE(S): E11.621 - Type 2 diabetes mellitus with foot ulcer; L97.529 - Non-pressure chronic ulcer of other part of left foot with unspecified severity QUALIFIERS: Diabetic foot ulcer location: heel Diabetes mellitus type: type 2 Non-pressure ulcer stage: with muscle involvement without evidence of necrosis Qualified Code(s): E11.621 - Type 2 diabetes mellitus with foot ulcer; L97.425 - Non-pressure chronic ulcer of left heel and midfoot with muscle involvement without evidence of necrosis (3) Diabetes mellitus: CODE(S): E11.9 - Type 2 diabetes mellitus without complications QUALIFIERS: Diabetes mellitus type: type 2 Diabetes mellitus complication status: with skin complications (4) Swelling of lower extremity: CODE(S): M79.89 - Other specified soft tissue disorders (5) Lower extremity edema: CODE(S): R60.0 - Localized edema (6) Cerebrovascular disease: CODE(S): I67.9 - Cerebrovascular disease, unspecified (7) History of cerebrovascular accident: CODE(S): Z86.73 - Personal history of transient ischemic attack (TIA), and cerebral infarction without residual deficits (8) Hypertension: CODE(S): I10 - Essential (primary) hypertension (9) Chronic renal disease: CODE(S): N18.9 - Chronic kidney disease, unspecified (10) History of toe surgery: CODE(S): Z98.890 - Other specified postprocedural states (11) History of arthroplasty of left shoulder: CODE(S): Z96.612 - Presence of left artificial shoulder joint (12) History of partial hysterectomy: CODE(S): Z90.711 - Acquired absence of uterus with remaining cervical stump (13) History of cataract surgery: CODE(S): Z98.49 - Cataract extraction status, unspecified eye (14) History of total right knee replacement: CODE(S): Z96.651 - Presence of right artificial knee joint (15) History of lumbar surgery: CODE(S): Z98.890 - Other specified postprocedural states (16) Obesity (BMI 30.0-34.9): CODE(S): E66.811 - Obesity, class 1 PLAN: Plan This is a 74-year-old obese, diabetic female who presented with an ulceration on the left posterior heel, which had been present for the better part of 1 year. The patient and her family had been using Silvadene topically prior to initial presentation. The ulceration had been noted to worsen over the 3 weeks prior to presentation. The ulceration appears to be related to pressure, as it is located at a site which would normally rest against the bed surface when she is in the recumbent position. Management recommendations have been discussed with the patient, and her family, at the bedside. Offloading measures are to be continued. The patient's family has been advised to use a rolled towel or blanket on her posterior calf to lift her posterior heel off of the bed surface. In addition, it has been recommended that they acquire a Podus boot, which they have done. The Podus boot will protect the patient's heel from trauma and pressure. We have prescribed collagenase Santyl to be used topically on a daily basis. Collagenase Santyl applied topically will provide enzymatic debridement, and is anticipated for use over the next several weeks. The patient's family has been instructed in the appropriate means of application. The patient has been advised to optimize her glycemic control and her nutritional intake. The patient's hemoglobin A1c, obtained on September 04, 2024, was 12.5. A discussion has been undertaken with the patient and her family informing them that this is indicative of recent poor control of her diabetic condition. So as to assist in the management of the patient's diabetes, the patient's recent laboratory results have been forwarded to her primary care physician, Dr. Frank, and the patient and her family have been encouraged to collaborate with Dr. Frank regarding diabetes management. A nutritional supplement such as Glucerna has been advised. 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 These findings do not appear to be a significant impediment to wound healing. The patient has been advised to elevate her lower extremities as much as possible. Elevation is to be to heart level, or higher. Elevation is to be during both daytime and nighttime hours. Prolonged idle sitting has been discouraged. Ambulation has been encouraged, although the patient is extremely limited in her capacity. A Tubigrip compression garment is to be donned on a daily basis. The recent culture results have been reviewed, and discussed with the patient and her family. The culture was positive for Morganella morganii, Staphylococcus aureus, Bacteroides fragilis, and Schaalia canis. Patient has been placed on Augmentin 500 mg / 125 mg orally every 12 hours for total of 12 days. Electrolytes were obtained on September 20, 2024. It was seen that the patient's potassium level was high (5.8). The patient's recent lab results also revealed evidence of renal impairment, with a BUN of 78 and a creatinine of 3.45. The patient's Augmentin dose has been adjusted based upon calculated creatinine clearance. The patient and her family have been strongly advised to schedule an appointment with her primary care physician, Dr. Frank, for review of recent laboratory results, and evaluation/management of her diabetes mellitus, electrolytes, and renal function. Medical records have been sent to Dr. Frank so he is aware of the recent updates to the patient's medical condition, as well as her most recent laboratory results. The patient and her family have been advised to seek an appointment with Dr. Frank for evaluation regarding these concerns. We are to order an x-ray of the left heel to determine whether signs of osteomyelitis exist. The patient is to return in 1 week for reevaluation relative to her left heel ulceration. Total time: 26 minutes
[2024-10-09 15:03] VITALS: BP 104/68; PULSE 64; RESP 16; TEMP 35.6; BMI 33.3
--- NOTE | 2024-10-11 08:36 | WC ---
PHOTO 10/09/24 LEFT HEEL
--- NOTE | 2024-10-11 13:43 | HP.PCM_ITS ---
History of Present Illness Date of Service: 10/09/24 Chief Complaint: Diabetic left foot ulceration due to pressure History of Wound: This is a 74-year-old obese, diabetic female who presented with an ulceration on her left posterior heel. According to the patient, her , and her adult daughter, the ulceration has been present for the better part of 1 year. It has waxed and waned, and has, at times, appeared to be nearly healed. Approximately 3 weeks prior to presentation, the ulceration was noted to be much worse. The ulceration started as a blister. The patient and her family had been using Silvadene topically. The patient is immobile, unable to due to a prior cerebrovascular accident. She claims to sleep in a recliner. She sits in idle fashion throughout the day. She suffers from chronic swelling and edema in her lower extremities, which is noted to be worse late in the day. She possesses graduated compression stockings, which are not worn on a regular basis, and the degree of compression of which is not known. The patient has a history of cerebrovascular accident, renal disease, and hypertension. Her history is negative for myocardial infarction, congestive heart failure, pulmonary disease, and thyroid disease. [facility] Medical History Pressure ulcer of left heel, stage 4 Obesity (BMI 30.0-34.9) Chronic renal disease Hypertension Lower extremity edema Swelling of lower extremity History of cerebrovascular accident Cerebrovascular disease Diabetes mellitus Pressure ulcer of left heel, stage 3 Diabetic ulcer of left foot Home Medications ?Medication ?Instructions ?Recorded ?Last Taken ?Type atenolol 25 mg tablet 25 mg PO DAILY BP MED 05/18/20 History lisinopril 20 mg tablet 40 mg PO QHS BP MED 03/13/17 05/17/20 History pramipexole 0.5 mg tablet (Mirapex) 0.5 mg PO QHS rest less legs 03/13/17 05/17/20 History aspirin 81 mg chewable tablet 81 mg PO DAILY@0800 heal th 05/18/20 05/18/20 History maintenance furosemide 40 mg tablet 40 mg PO DAILY diuretic 04/2505/18/20 History insulin human U-100 NPH-regulr 10 units SQ DINNER diab etes 05/18/20 05/17/20 History 70-30 mix 100 unit/mL subcutaneous susp insulin human U-100 NPH-regulr 20 units SQ DAILY diabe petr 05/18/20 05/18/20 History 70-30 mix 100 unit/mL subcutaneous susp potassium chloride 10 mEq 10 meq PO DAILY supplement 0 05/18/20 05/18/20 History capsule,extended release glipizide 5 mg tablet 5 mg PO 09/04/24 Unknown His tory lorazepam 0.5 mg tablet (Ativan) 0.5 mg PO Q4H PRN anx iety 09/04/24 Unknown History metolazone 2.5 mg tablet 2.5 mg PO 09/04/24 Unknown H istory sulfamethoxazole 800 1 tab PO Q12H #28 TABLETS Unknown Rx mg-trimethoprim 160 mg tablet (Bactrim DS) metronidazole 500 mg tablet 500 mg PO Q8H Infected xavier t wound 09/24/24 Unknown Rx #30 tabs amoxicillin 500 mg-potassium 1 tab PO Q12H Wound infec tion #24 09/26/24 Unknown Rx clavulanate 125 mg tablet tabs (Augmentin) Allergy/AdvReac Type Severity Reaction Status Date / Time pravastatin AdvReac muscle and Verified 09/04/24 14:31 leg pain Surgical History History of lumbar surgery History of total right knee replacement History of cataract surgery History of partial hysterectomy History of arthroplasty of left shoulder History of toe surgery Social History Smoking Status: Never smoker Vital Signs Vital Signs Vital Signs: Weight Weight: 170 lb 12.573 oz Body Mass Index (BMI) 33.3 Physical Exam Const alert, oriented x3 and no apparent distress Constitutional Narrative: The patient's abdomen appears to be obese. Her BMI is 33.4. She is debilitated, with limitations in mobility. General Appearance: cooperative, comfortable and well developed Orientation / Consciousness: awake and oriented to person HEENT normocephalic and head/scalp atraumatic Head and Scalp: normal to inspection, normocephalic and atraumatic Face and Sinus: normal facial exam Nose: external nose normal External Ear: external ears normal Eyes EOMs intact bilaterally General Eye: normal appearance of both eyes Resp normal respiratory effort, normal air movement, no retractions and no use of accessory muscles Effort and Inspection: able to speak in complete sentences Extremity no calf tenderness General Extremity: Negative for clubbing or cyanosis Skin Wound Narrative: Moderate swelling and edema are noted in the patient's lower extremities bilaterally. An ulceration is noted on the patient's left posterior heel, which appears to be a stage IV pressure ulceration. The ulceration extends through all layers of the dermis and subcutaneous tissues, and down to fascial level. There is a moderate amount of gangrenous, necrotic, and nonviable material. Valorie-ulcer erythema appears to be diminishing. Ulcer margins are not well beve led. Dimensions are documented elsewhere. The ulceration is slightly smaller. The disagreeable odor which had been noted at prior visits is no longer present. Neuro oriented x3 and CN's II-XII intact bilaterally Sensorium / Orientation: awake, alert, oriented to person, oriented to place and oriented to time Speech: speech normal Psych Appearance: grossly normal and appropriate Attitude: calm Activity / Motor Behavior: appropriate eye contact Speech: normal speech Mood & Affect: euthymic mood Thought Process: normal thought process Thought Content: normal thought content Attention / Concentration: attention grossly intact Debridement Note Debridement Note Wound debrided: Left posterior heel ulceration Laterality: Left Wound Grade/Stage: Stage IV pressure ulcer Type of Debridement: Excisional debridement Anesthesia Used: 5% Lidocaine Gel and Cetacaine Depth: Down to and including healthy tissue, in the subcutaneous layer and to muscle Percentage of wound debrided: 100 Instrument Used: 5mm curette, Forceps and - (Scissors) Tissue Removed: Necrotic, nonviable, and gangrenous material at the base of the ulceration Severity: Necrosis of Muscle (Debridement down to fascia) Amount of bleeding with debridement: Mild Bleeding Controlled with: Compression and gauze Patient tolerated procedure: Patient tolerated procedure well Post-Debridement Measurements and Additional Note: Post-Debridement Measurements/Treatment RACHAEL - Nurse 1 - General Ulcer Assessment Start: 09/25/24 13:20 Freq: Status: Active Protocol: NAVI Activity Type Activity Date Activity User E-sign Co-sign Detail Recorded Client Recorded Date Recorded By Document 09/25/24 13:20 KW [id number] 09/25/24 13:27 KW Document 10/02/24 13:38 [facility] [id number] 10/02/24 13:48 BMF Document 10/09/24 15:03 KW [id number] 10/09/24 15:11 KW 09/25/24 10/02/24 10/09/24 13:20 13:38 15:03 WC - Today's Visit Information Type of service Follow-up Visit Follow-up Visit Follow-up Visit (Physician/REAL ESTATE REPRESENTATIVE (Physician/REAL ESTATE REPRESENTATIVE (Physician/REAL ESTATE REPRESENTATIVE ) ) ) Arrival Mode Wheelchair Wheelchair Wheelchair Transfer Assistance Manual Other Manual Transfer Assist (Other) 3 max assist Accompanied by FAMILY and family daughter Patient Identification Verified (Name & Yes Yes Yes ) Height and Weight Body Mass Index (BMI) 33.3 33.3 33.3 BMI Classification Obese Obese Obese Vital Signs Temperature (97.8 F-99.1 F) 96.3 F L 97.9 F 96.1 F L Temperature Source Temporal Temporal Temporal Pulse Rate (60-100) 58 L 57 L 64 Pulse Location Monitor Monitor Monitor Respiratory Rate (12-18) 18 16 16 Respiratory rate source Monitor Observation Observation Oxygen Delivery Method Room Air Room Air Room Air Blood Pressure (90/60-120/80) 129/63 H 127/67 H 104/68 Blood Pressure Mean 85 87 80 Source Monitor Monitor Monitor Position Semi-Fowlers Sitting Sitting Blood Pressure Location Left Arm Left Arm Right Arm History Since Last Visit- (Skip if this is Patient's initial visit) Have you changed medications since your No No No last visit? Any new allergies or adverse reactions No No No Had a fall/change in ADL's that may No No No increase risk of falls Signs or symptoms of abuse and/or No No No neglect since last visit Have you been in the hospital since your No No No last visit? Has dressing in place as prescribed Yes Yes Yes Has compression in place as prescribed Yes N/A Yes Has offloadiing in place as prescribed Yes Yes Experienced any changes in pain level or No No No management Left Footwear Multipodus Multipodus Multipodus Splint/Boot Splint/Boot Splint/Boot Right Footwear Regular Shoe Slipper Regular Shoe Pain Scale: 0-10 Numeric Is Patient Pain Free? Yes Yes Yes - Nurse 1 - General Ulcer Measurement Start: 09/25/24 13:20 Freq: Status: Active Protocol: Activity Type Activity Date Activity User E-sign Co-sign Detail Recorded Client Recorded Date Recorded By Document 09/25/24 13:20 [id number] 09/25/24 13:27 Document 10/02/24 13:38 [facility] [id number] 10/02/24 13:48 [facility] Document 10/09/24 15:03 [id number] 10/09/24 15:11 KW 09/25/24 10/02/24 10/09/24 13:20 13:38 15:03 Wound Center Nurse 1 #1 L Heel -Combined with other wound No -Current Size (cm) - Length 1.5 1 0.7 -Current Size (cm) - Width 1.3 1.6 1.5 -Current Size (cm) - Depth 0.4 0.3 0.2 -Total Square Cm 1.95 1.6 1.05 -Date of Last Picture (Recall this 10/02/24 field) -Photo Taken Yes -Epithelialization Small 1-33% Small 1-33% -Tunneling No -Undermining/Tunneling No -Circular Undermining No -Exudate Amt Small Medium Small -Exudate Type Serosanguineous Serosanguineous Serosanguineous -Wound Margin Thickened Distinct, Distinct, Outline Outline Attached Attached -Granulation Amt Small (1-33%) Small (1-33%) None Present (0 %) -Granulation Quality [place] Red -Slough/Fibrin Yes -Necrosis Amt Large (67-100%) Large (67-100%) Large (67-100%) -Necrotic Tissue Type Adherent Slough Adherent Slough Adherent Slough -Texture (Valorie-wound Skin Appearance) Assessed Assessed Assessed -Moisture (Valorie-wound Skin Appearance) Assessed, Assessed Assessed Maceration -Color (Valorie-wound Skin Appearance) Assessed Assessed Assessed -Temperature (Valorie-wound Skin No Abnormality No Abnormality No Abnormality Appearance) (Pt Warm) (Pt Warm) (Pt Warm) -Tenderness on Palpation (Valorie-wound No No No Skin Appearance) -Ulcer Cleansing Soap and Water Rinsed/ Soap and Water Irrigated with Saline -Foul Odor after Cleansing No No No -Anesthetic Used 5% Lidocaine 5% Lidocaine 5% Lidocaine Gel Gel Gel WC - Nurse 2 - General Ulcer CM Notes Start: 09/25/24 13:20 Freq: Status: Active Protocol: Activity Type Activity Date Activity User E-sign Co-sign Detail Recorded Client Recorded Date Recorded By Document 09/25/24 13:46 [id number] 09/25/24 13:57 Document 10/02/24 14:58 [id number] 10/02/24 15:02 Document 10/09/24 15:56 [id number] 10/09/24 16:03 09/25/24 10/02/24 10/09/24 13:46 14:58 15:56 Wound Center Nurse 2 #1 L Heel -Time 13:51 14:58 15:58 -Correct Patient Yes Yes Yes -Correct Side, Site, Position Yes Yes Yes -Correct Procedure Yes Yes Yes -Procedure Performed Yes Yes Yes -Type of Procedure Debridement Debridement Debridement -Clinical Debridement Subcutaneous Muscle / Fascia Subcutaneous -Tissue Removed Subcutaneous Fascia Subcutaneous -Post Debridement (cm) - Length 1.5 1.2 1.0 -Post Debridement (cm) - Width 1.5 2.0 1.7 -Post Debridement (cm) - Depth 0.6 0.6 0.6 -Total Square (Post) (cm) 2.25 2.40 1.70 -Area of Debridement (cm) - Length 1.5 1.2 1.0 -Area of Debridement (cm) - Width 1.5 2.0 1.7 -Total Square (Area) (cm) 2.25 2.40 1.70 -Tunneling No No No -Undermining/Tunneling No No No -Circular Undermining No No No -Wound/Ulcer Outcome Not Healed Not Healed Not Healed -Ulcer Cleansing Rinsed/ Rinsed/ Rinsed/ Irrigated with Irrigated with Irrigated with Saline Saline Saline -Foul Odor after Cleansing No No No -Bioengineered Tissue No No No -Bleeding Controlled with Pressure Pressure Pressure -Treatment Response Procedure Procedure Procedure Tolerated Well Tolerated Well Tolerated Well -Offloading No No -Debridement - Subq, 1st 20sq cm Yes No Yes -Debridement - Muscle / Fascia, 1st Yes 20sq cm Pain Scale: 0-10 Numeric Is Patient Pain Free? Yes Yes Yes - Nurse 3 - General Ulcer D/C NN Start: 09/25/24 13:20 Freq: Status: Active Protocol: Activity Type Activity Date Activity User E-sign Co-sign Detail Recorded Client Recorded Date Recorded By Document 09/25/24 14:18 [id number] 09/25/24 14:19 Document 10/02/24 15:08 [id number] 10/02/24 15:08 KW Document 10/09/24 16:07 DL [id number] 10/09/24 16:10 DL 09/25/24 10/02/24 10/09/24 14:18 15:08 16:07 Wound Care Center Nurse 3 #1 L Heel -Ulcer Cleansing Not Cleansed Rinsed/ Irrigated with Saline -Foul Odor after Cleansing No -Other Dressing santyl santyl moistened with saline -Primary Dressing Covered/Secured with Dry Gauze & Dry Gauze & Dry Gauze & Roll Gauze, Roll Gauze, Roll Gauze, Secured with Secured with Secured with Tape Tape Tape -Other Covering SANTYL APPLIED LLE -Lotion applied to leg before No compression wrap -Compression Wrap Santos Wrap -Tubular Bandage Single Layer Single Layer Single Layer -Size of Tubigrip Used Size E Size E Size E -Size E ($) 1 1 1 Treatment Response Procedure Tolerated Well Pain Scale: 0-10 Numeric Is Patient Pain Free? Yes Yes Yes WC - Visit Discharge Discharge Condition Stable Stable Stable Ambulatory Status Wheelchair Wheelchair Unsteady, Wheelchair Transportation Private Auto Private Auto Private Auto Medication Reconcilliation completed & No provided to patient/care provider Clinical Summary of Care Provided Yes Notes: Dressing applied per Margareth Roper today Charges/Coding Procedures Integumentary [id number]: [id number] Shannon musc/fascia 20 sq cm/< Assessment/Plan Assessment/Plan (1) Pressure ulcer of left heel, stage 4: CODE(S): L89.624 - Pressure ulcer of left heel, stage 4 (2) Diabetic ulcer of left foot: CODE(S): E11.621 - Type 2 diabetes mellitus with foot ulcer; L97.529 - Non-pressure chronic ulcer of other part of left foot with unspecified severity QUALIFIERS: Diabetic foot ulcer location: heel Diabetes mellitus type: type 2 Non-pressure ulcer stage: with muscle involvement without evidence of necrosis Qualified Code(s): E11.621 - Type 2 diabetes mellitus with foot ulcer; L97.425 - Non-pressure chronic ulcer of left heel and midfoot with muscle involvement without evidence of necrosis (3) Diabetes mellitus: CODE(S): E11.9 - Type 2 diabetes mellitus without complications QUALIFIERS: Diabetes mellitus type: type 2 Diabetes mellitus complication status: with skin complications (4) Swelling of lower extremity: CODE(S): M79.89 - Other specified soft tissue disorders (5) Lower extremity edema: CODE(S): R60.0 - Localized edema (6) Cerebrovascular disease: CODE(S): I67.9 - Cerebrovascular disease, unspecified (7) History of cerebrovascular accident: CODE(S): Z86.73 - Personal history of transient ischemic attack (TIA), and cerebral infarction without residual deficits (8) Hypertension: CODE(S): I10 - Essential (primary) hypertension (9) Chronic renal disease: CODE(S): N18.9 - Chronic kidney disease, unspecified (10) History of toe surgery: CODE(S): Z98.890 - Other specified postprocedural states (11) History of arthroplasty of left shoulder: CODE(S): Z96.612 - Presence of left artificial shoulder joint (12) History of partial hysterectomy: CODE(S): Z90.711 - Acquired absence of uterus with remaining cervical stump (13) History of cataract surgery: CODE(S): Z98.49 - Cataract extraction status, unspecified eye (14) History of total right knee replacement: CODE(S): Z96.651 - Presence of right artificial knee joint (15) History of lumbar surgery: CODE(S): Z98.890 - Other specified postprocedural states (16) Obesity (BMI 30.0-34.9): CODE(S): E66.811 - Obesity, class 1 PLAN: Plan This is a 74-year-old obese, diabetic female who presented with an ulceration on the left posterior heel, which had been present for the better part of 1 year. The patient and her family had been using Silvadene topically prior to initial presentation. The ulceration had been noted to worsen over the 3 weeks prior to presentation. The ulceration appears to be related to pressure, as it is located at a site which would normally rest against the bed surface when she is in the recumbent position. Management recommendations have been discussed with the patient, and her family, at the bedside. Offloading measures are to be continued. The patient's family has been advised to use a rolled towel or blanket on her posterior calf to lift her posterior heel off of the bed surface. In addition, it has been recommended that they acquire a Podus boot, which they have done. The Podus boot will protect the patient's heel from trauma and pressure. We have prescribed collagenase Santyl to be used topically on a daily basis. Collagenase Santyl applied topically will provide enzymatic debridement. The patient's family has been instructed in the appropriate means of application. The patient has been advised to optimize her glycemic control and her nutritional intake. The patient's hemoglobin A1c, obtained on September 04, 2024, was 12.5. A discussion has been undertaken with the patient and her family informing them that this is indicative of recent poor control of her diabetic condition. So as to assist in the management of the patient's diabetes, the patient's recent laboratory results have been forwarded to her primary care physician, Dr. Frank, and the patient and her family have been encouraged to collaborate with Dr. Frank regarding diabetes management. A nutritional supplement such as Glucerna has been advised. 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 These findings do not appear to be a significant impediment to wound healing. The patient has been advised to elevate her lower extremities as much as possible. Elevation is to be to heart level, or higher. Elevation is to be during both daytime and nighttime hours. Prolonged idle sitting has been discouraged. Ambulation has been encouraged, although the patient is extremely limited in her capacity. A Tubigrip compression garment is to be donned on a daily basis. The recent culture results have been reviewed, and discussed with the patient and her family. The culture was positive for Morganella morganii, Staphylococcus aureus, Bacteroides fragilis, and Schaalia canis. Patient has been placed on Augmentin 500 mg / 125 mg orally every 12 hours for total of 12 days, which is nearly completed. Electrolytes were obtained on September 20, 2024. It was seen that the patient's potassium level was high (5.8). The patient's recent lab results also revealed evidence of renal impairment, with a BUN of 78 and a creatinine of 3.45. The patient's Augmentin dose has been adjusted based upon calculated creatinine clearance. The patient and her family have been strongly advised to schedule an appointment with her primary care physician, Dr. Frank, for review of recent laboratory results, and evaluation/management of her diabetes mellitus, electrolytes, renal function, etc. Medical records have been sent to Dr. Frank so he is aware of the recent updates to the patient's medical condition, as well as her most recent laboratory results. The patient and her family have been advised to seek an appointment with Dr. Frank for evaluation regarding these concerns. Despite repeated recommendations to the patient and her family to schedule an appointment with Dr. Frank, they have not done so. We have once again urged the patient and her family to follow-up with Dr. Frank regarding evaluation and management of her diabetes, renal status, electrolytes, etc. An x-ray of the left heel reveals soft tissue edema and swelling, but no radiographic evidence of osteomyelitis. The patient is to return in 1 week for reevaluation relative to her left heel ulceration. Total time: 25 minutes
[2024-10-16 14:55] VITALS: BP 135/70; PULSE 69; RESP 16; TEMP 36.6; BMI 33.3
--- NOTE | 2024-10-17 11:11 | WC ---
PHOTO 10/16/24 LEFT HEEL
--- NOTE | 2024-10-18 17:07 | HP.PCM_ITS ---
History of Present Illness Date of Service: 10/16/24 Chief Complaint: Diabetic left foot ulceration due to pressure History of Wound: This is a 74-year-old obese, diabetic female who presented with an ulceration on her left posterior heel. According to the patient, her , and her adult daughter, the ulceration has been present for the better part of 1 year. It has waxed and waned, and has, at times, appeared to be nearly healed. Approximately 3 weeks prior to presentation, the ulceration was noted to be much worse. The ulceration started as a blister. The patient and her family had been using Silvadene topically. The patient is immobile, unable to due to a prior cerebrovascular accident. She claims to sleep in a recliner. She sits in idle fashion throughout the day. She suffers from chronic swelling and edema in her lower extremities, which is noted to be worse late in the day. She possesses graduated compression stockings, which are not worn on a regular basis, and the degree of compression of which is not known. The patient has a history of cerebrovascular accident, renal disease, and hypertension. Her history is negative for myocardial infarction, congestive heart failure, pulmonary disease, and thyroid disease. [facility] Medical History Pressure ulcer of left heel, stage 4 Obesity (BMI 30.0-34.9) Chronic renal disease Hypertension Lower extremity edema Swelling of lower extremity History of cerebrovascular accident Cerebrovascular disease Diabetes mellitus Pressure ulcer of left heel, stage 3 Diabetic ulcer of left foot Home Medications ?Medication ?Instructions ?Recorded ?Last Taken ?Type atenolol 25 mg tablet 25 mg PO DAILY BP MED 05/18/20 History lisinopril 20 mg tablet 40 mg PO QHS BP MED 03/13/17 05/17/20 History pramipexole 0.5 mg tablet (Mirapex) 0.5 mg PO QHS rest less legs 03/13/17 05/17/20 History aspirin 81 mg chewable tablet 81 mg PO DAILY@0800 heal th 05/18/20 05/18/20 History maintenance furosemide 40 mg tablet 40 mg PO DAILY diuretic 04/2505/18/20 History insulin human U-100 NPH-regulr 10 units SQ DINNER diab etes 05/18/20 05/17/20 History 70-30 mix 100 unit/mL subcutaneous susp insulin human U-100 NPH-regulr 20 units SQ DAILY diabe petr 05/18/20 05/18/20 History 70-30 mix 100 unit/mL subcutaneous susp potassium chloride 10 mEq 10 meq PO DAILY supplement 0 05/18/20 05/18/20 History capsule,extended release glipizide 5 mg tablet 5 mg PO 09/04/24 Unknown His tory lorazepam 0.5 mg tablet (Ativan) 0.5 mg PO Q4H PRN anx iety 09/04/24 Unknown History metolazone 2.5 mg tablet 2.5 mg PO 09/04/24 Unknown H istory sulfamethoxazole 800 1 tab PO Q12H #28 TABLETS Unknown Rx mg-trimethoprim 160 mg tablet (Bactrim DS) metronidazole 500 mg tablet 500 mg PO Q8H Infected xavier t wound 09/24/24 Unknown Rx #30 tabs amoxicillin 500 mg-potassium 1 tab PO Q12H Wound infec tion #24 09/26/24 Unknown Rx clavulanate 125 mg tablet tabs (Augmentin) Allergy/AdvReac Type Severity Reaction Status Date / Time pravastatin AdvReac muscle and Verified 09/04/24 14:31 leg pain Surgical History History of lumbar surgery History of total right knee replacement History of cataract surgery History of partial hysterectomy History of arthroplasty of left shoulder History of toe surgery Social History Smoking Status: Never smoker Vital Signs Vital Signs Vital Signs: Weight Weight: 170 lb 12.573 oz Body Mass Index (BMI) 33.3 Physical Exam Const alert, oriented x3 and no apparent distress Constitutional Narrative: The patient's abdomen appears to be obese. Her BMI is 33.4. She is debilitated, with limitations in mobility. General Appearance: cooperative, comfortable and well developed Orientation / Consciousness: awake and oriented to person HEENT normocephalic and head/scalp atraumatic Head and Scalp: normal to inspection, normocephalic and atraumatic Face and Sinus: normal facial exam Nose: external nose normal External Ear: external ears normal Eyes EOMs intact bilaterally General Eye: normal appearance of both eyes Resp normal respiratory effort, normal air movement, no retractions and no use of accessory muscles Effort and Inspection: able to speak in complete sentences Extremity no calf tenderness General Extremity: Negative for clubbing or cyanosis Skin Wound Narrative: Moderate swelling and edema are noted in the patient's lower extremities bilaterally. An ulceration is noted on the patient's left posterior heel, which appears to be a stage IV pressure ulceration. The ulceration extends through all layers of the dermis and subcutaneous tissues, and down to fascial level. There is a moderate amount of gangrenous, necrotic, and nonviable material. Valorie-ulcer erythema appears to be diminishing. Ulcer margins are not well beve led. Dimensions are documented elsewhere. The ulceration is slightly smaller. The disagreeable odor which had been noted at prior visits is no longer present. Neuro oriented x3 and CN's II-XII intact bilaterally Sensorium / Orientation: awake, alert, oriented to person, oriented to place and oriented to time Speech: speech normal Psych Appearance: grossly normal and appropriate Attitude: calm Activity / Motor Behavior: appropriate eye contact Speech: normal speech Mood & Affect: euthymic mood Thought Process: normal thought process Thought Content: normal thought content Attention / Concentration: attention grossly intact Debridement Note Debridement Note Wound debrided: Left posterior heel ulceration Laterality: Left Wound Grade/Stage: Stage IV pressure ulcer Type of Debridement: Excisional debridement Anesthesia Used: 5% Lidocaine Gel and Cetacaine Depth: Down to and including healthy tissue, in the subcutaneous layer and to muscle Percentage of wound debrided: 100 Instrument Used: 5mm curette Tissue Removed: Necrotic and non-viable material at the base of the ulceration Severity: Necrosis of Muscle (Debridement down to fascia) Amount of bleeding with debridement: Mild Bleeding Controlled with: Compression and gauze Patient tolerated procedure: Patient tolerated procedure well Post-Debridement Measurements and Additional Note: Post-Debridement Measurements/Treatment - Nurse 1 - General Ulcer Assessment Start: 09/25/24 13:20 Freq: Status: Active Protocol: NAVI Activity Type Activity Date Activity User E-sign Co-sign Detail Recorded Client Recorded Date Recorded By Document 09/25/24 13:20 [id number] 09/25/24 13:27 KW Document 10/02/24 13:38 [facility] [id number] 10/02/24 13:48 [facility] Document 10/09/24 15:03 KW [id number] 10/09/24 15:11 KW Document 10/16/24 14:55 ML [id number] 10/16/24 14:57 ML 09/25/24 10/02/24 10/09/24 13:20 13:38 15:03 WC - Today's Visit Information Type of service Follow-up Visit Follow-up Visit Follow-up Visit (Physician/DIET AID (Physician/DIET AID (Physician/DIET AID ) ) ) Arrival Mode Wheelchair Wheelchair Wheelchair Transfer Assistance Manual Other Manual Transfer Assist (Other) 3 max assist Accompanied by FAMILY and family daughter Patient Identification Verified (Name & Yes Yes Yes ) Patient Requires Transmission-Based Precautions Height and Weight Body Mass Index (BMI) 33.3 33.3 33.3 BMI Classification Obese Obese Obese Vital Signs Temperature (97.8 F-99.1 F) 96.3 F L 97.9 F 96.1 F L Temperature Source Temporal Temporal Temporal Pulse Rate (60-100) 58 L 57 L 64 Pulse Location Monitor Monitor Monitor Respiratory Rate (12-18) 18 16 16 Respiratory rate source Monitor Observation Observation Oxygen Delivery Method Room Air Room Air Room Air Blood Pressure (90/60-120/80) 129/63 H 127/67 H 104/68 Blood Pressure Mean 85 87 80 Source Monitor Monitor Monitor Position Semi-Fowlers Sitting Sitting Blood Pressure Location Left Arm Left Arm Right Arm History Since Last Visit- (Skip if this is Patient's initial visit) Have you changed medications since your No No No last visit? Any new allergies or adverse reactions No No No Had a fall/change in ADL's that may No No No increase risk of falls Signs or symptoms of abuse and/or No No No neglect since last visit Have you been in the hospital since your No No No last visit? Has dressing in place as prescribed Yes Yes Yes Has compression in place as prescribed Yes N/A Yes Has offloadiing in place as prescribed Yes Yes Experienced any changes in pain level or No No No management Left Footwear Multipodus Multipodus Multipodus Splint/Boot Splint/Boot Splint/Boot Right Footwear Regular Shoe Slipper Regular Shoe Pain Scale: 0-10 Numeric Is Patient Pain Free? Yes Yes Yes 10/16/24 14:55 WC - Today's Visit Information Type of service Follow-up Visit (Physician/DIET AID ) Arrival Mode Wheelchair Transfer Assistance Other Transfer Assist (Other) 2 MAX Accompanied by DAUGHTER AND Patient Identification Verified (Name & Yes ) Patient Requires Transmission-Based No Precautions Height and Weight Body Mass Index (BMI) 33.3 BMI Classification Obese Vital Signs Temperature (97.8 F-99.1 F) 97.9 F Temperature Source Temporal Pulse Rate (60-100) 69 Pulse Location Monitor Respiratory Rate (12-18) 16 Respiratory rate source Observation Oxygen Delivery Method Room Air Blood Pressure (90/60-120/80) 135/70 H Blood Pressure Mean 91 Source Monitor Position Sitting Blood Pressure Location History Since Last Visit- (Skip if this is Patient's initial visit) Have you changed medications since your No last visit? Any new allergies or adverse reactions No Had a fall/change in ADL's that may No increase risk of falls Signs or symptoms of abuse and/or No neglect since last visit Have you been in the hospital since your No last visit? Has dressing in place as prescribed Yes Has compression in place as prescribed N/A Has offloadiing in place as prescribed Yes Experienced any changes in pain level or No management Left Footwear Multipodus Splint/Boot Right Footwear Regular Shoe Pain Scale: 0-10 Numeric Is Patient Pain Free? Yes WC - Nurse 1 - General Ulcer Measurement Start: 09/25/24 13:20 Freq: Status: Active Protocol: Activity Type Activity Date Activity User E-sign Co-sign Detail Recorded Client Recorded Date Recorded By Document 09/25/24 13:20 KW [id number] 09/25/24 13:27 KW Document 10/02/24 13:38 [facility] [id number] 10/02/24 13:48 [facility] Document 10/09/24 15:03 KW [id number] 10/09/24 15:11 KW Document 10/16/24 14:55 ML [id number] 10/16/24 14:57 ML 09/25/24 10/02/24 10/09/24 13:20 13:38 15:03 Wound Center Nurse 1 #1 L Heel -Combined with other wound No -Current Size (cm) - Length 1.5 1 0.7 -Current Size (cm) - Width 1.3 1.6 1.5 -Current Size (cm) - Depth 0.4 0.3 0.2 -Total Square Cm 1.95 1.6 1.05 -Date of Last Picture (Recall this 10/02/24 field) -Photo Taken Yes -Epithelialization Small 1-33% Small 1-33% -Tunneling No -Undermining/Tunneling No -Circular Undermining No -Exudate Amt Small Medium Small -Exudate Type Serosanguineous Serosanguineous Serosanguineous -Wound Margin Thickened Distinct, Distinct, Outline Outline Attached Attached -Granulation Amt Small (1-33%) Small (1-33%) None Present (0 %) -Granulation Quality Hurricane Red -Slough/Fibrin Yes -Necrosis Amt Large (67-100%) Large (67-100%) Large (67-100%) -Necrotic Tissue Type Adherent Slough Adherent Slough Adherent Slough -Texture (Valorie-wound Skin Appearance) Assessed Assessed Assessed -Moisture (Valorie-wound Skin Appearance) Assessed, Assessed Assessed Maceration -Color (Valorie-wound Skin Appearance) Assessed Assessed Assessed -Temperature (Valorie-wound Skin No Abnormality No Abnormality No Abnormality Appearance) (Pt Warm) (Pt Warm) (Pt Warm) -Tenderness on Palpation (Valorie-wound No No No Skin Appearance) -Ulcer Cleansing Soap and Water Rinsed/ Soap and Water Irrigated with Saline -Foul Odor after Cleansing No No No -Anesthetic Used 5% Lidocaine 5% Lidocaine 5% Lidocaine Gel Gel Gel 10/16/24 14:55 Wound Center Nurse 1 #1 L Heel -Combined with other wound No -Current Size (cm) - Length 1 -Current Size (cm) - Width 1 -Current Size (cm) - Depth 0.2 -Total Square Cm 1 -Date of Last Picture (Recall this 10/16/24 field) -Photo Taken Yes -Epithelialization -Tunneling No -Undermining/Tunneling No -Circular Undermining No -Exudate Amt Medium -Exudate Type Serosanguineous -Wound Margin Distinct, Outline Attached -Granulation Amt Medium (34-66%) -Granulation Quality Hurricane -Slough/Fibrin Yes -Necrosis Amt Medium (34-66%) -Necrotic Tissue Type Adherent Slough -Texture (Valorie-wound Skin Appearance) Assessed, Scarring -Moisture (Valorie-wound Skin Appearance) Assessed, Maceration -Color (Valorie-wound Skin Appearance) Assessed -Temperature (Valorie-wound Skin No Abnormality Appearance) (Pt Warm) -Tenderness on Palpation (Valorie-wound No Skin Appearance) -Ulcer Cleansing Rinsed/ Irrigated with Saline -Foul Odor after Cleansing No -Anesthetic Used 5% Lidocaine Gel WC - Nurse 2 - General Ulcer CM Notes Start: 09/25/24 13:20 Freq: Status: Active Protocol: Activity Type Activity Date Activity User E-sign Co-sign Detail Recorded Client Recorded Date Recorded By Document 09/25/24 13:46 GM [id number] 09/25/24 13:57 GM Document 10/02/24 14:58 DS [id number] 10/02/24 15:02 DS Document 10/09/24 15:56 GM [id number] 10/09/24 16:03 GM Document 10/16/24 15:08 GM [id number] 10/16/24 15:14 09/25/24 10/02/24 10/09/24 13:46 14:58 15:56 Wound Center Nurse 2 #1 L Heel -Time 13:51 14:58 15:58 -Correct Patient Yes Yes Yes -Correct Side, Site, Position Yes Yes Yes -Correct Procedure Yes Yes Yes -Procedure Performed Yes Yes Yes -Type of Procedure Debridement Debridement Debridement -Clinical Debridement Subcutaneous Muscle / Fascia Subcutaneous -Tissue Removed Subcutaneous Fascia Subcutaneous -Post Debridement (cm) - Length 1.5 1.2 1.0 -Post Debridement (cm) - Width 1.5 2.0 1.7 -Post Debridement (cm) - Depth 0.6 0.6 0.6 -Total Square (Post) (cm) 2.25 2.40 1.70 -Area of Debridement (cm) - Length 1.5 1.2 1.0 -Area of Debridement (cm) - Width 1.5 2.0 1.7 -Total Square (Area) (cm) 2.25 2.40 1.70 -Tunneling No No No -Undermining/Tunneling No No No -Circular Undermining No No No -Wound/Ulcer Outcome Not Healed Not Healed Not Healed -Ulcer Cleansing Rinsed/ Rinsed/ Rinsed/ Irrigated with Irrigated with Irrigated with Saline Saline Saline -Foul Odor after Cleansing No No No -Bioengineered Tissue No No No -Bleeding Controlled with Pressure Pressure Pressure -Treatment Response Procedure Procedure Procedure Tolerated Well Tolerated Well Tolerated Well -Offloading No No -Debridement - Subq, 1st 20sq cm Yes No Yes -Debridement - Muscle / Fascia, 1st Yes 20sq cm Pain Scale: 0-10 Numeric Is Patient Pain Free? Yes Yes Yes 10/16/24 15:08 Wound Center Nurse 2 #1 L Heel -Time 15:08 -Correct Patient Yes -Correct Side, Site, Position Yes -Correct Procedure Yes -Procedure Performed Yes -Type of Procedure Debridement -Clinical Debridement Subcutaneous -Tissue Removed Subcutaneous -Post Debridement (cm) - Length 1.0 -Post Debridement (cm) - Width 1.2 -Post Debridement (cm) - Depth 0.4 -Total Square (Post) (cm) 1.20 -Area of Debridement (cm) - Length 1.0 -Area of Debridement (cm) - Width 1.2 -Total Square (Area) (cm) 1.20 -Tunneling No -Undermining/Tunneling No -Circular Undermining No -Wound/Ulcer Outcome Not Healed -Ulcer Cleansing Not Cleansed -Foul Odor after Cleansing No -Bioengineered Tissue No -Bleeding Controlled with Pressure -Treatment Response Procedure Tolerated Well -Offloading No -Debridement - Subq, 1st 20sq cm Yes -Debridement - Muscle / Fascia, 1st 20sq cm Pain Scale: 0-10 Numeric Is Patient Pain Free? Yes - Nurse 3 - General Ulcer D/C NN Start: 09/25/24 13:20 Freq: Status: Active Protocol: Activity Type Activity Date Activity User E-sign Co-sign Detail Recorded Client Recorded Date Recorded By Document 09/25/24 14:18 [id number] 09/25/24 14:19 Document 10/02/24 15:08 KW [id number] 10/02/24 15:08 KW Document 10/09/24 16:07 DL [id number] 10/09/24 16:10 DL Document 10/16/24 15:31 [facility] [id number] 10/16/24 15:31 [facility] 09/25/24 10/02/24 10/09/24 14:18 15:08 16:07 Wound Care Center Nurse 3 #1 L Heel -Ulcer Cleansing Not Cleansed Rinsed/ Irrigated with Saline -Foul Odor after Cleansing No -Other Dressing santyl santyl moistened with saline -Primary Dressing Covered/Secured with Dry Gauze & Dry Gauze & Dry Gauze & Roll Gauze, Roll Gauze, Roll Gauze, Secured with Secured with Secured with Tape Tape Tape -Other Covering SANTYL APPLIED LLE -Lotion applied to leg before No compression wrap -Compression Wrap Santos Wrap -Tubular Bandage Single Layer Single Layer Single Layer -Size of Tubigrip Used Size E Size E Size E -Size E ($) 1 1 1 Treatment Response Procedure Tolerated Well Pain Scale: 0-10 Numeric Is Patient Pain Free? Yes Yes Yes WC - Visit Discharge Discharge Condition Stable Stable Stable Ambulatory Status Wheelchair Wheelchair Unsteady, Wheelchair Transportation Private Auto Private Auto Private Auto Accompanied by Medication Reconcilliation completed & No provided to patient/care provider Clinical Summary of Care Provided Yes Notes: Dressing applied per Margareth Roper today 10/16/24 15:31 Wound Care Center Nurse 3 #1 L Heel -Ulcer Cleansing Rinsed/ Irrigated with Saline -Foul Odor after Cleansing No -Other Dressing HYDROGEL TODAY IN CLINIC, HEEL HAT -Primary Dressing Covered/Secured with Dry Gauze & Roll Gauze, Secured with Tape -Other Covering KERLIX LLE -Lotion applied to leg before compression wrap -Compression Wrap -Tubular Bandage -Size of Tubigrip Used -Size E ($) Treatment Response Procedure Tolerated Well Pain Scale: 0-10 Numeric Is Patient Pain Free? Yes WC - Visit Discharge Discharge Condition Stable Ambulatory Status Wheelchair Transportation Private Auto Accompanied by AND DAUGHTER Medication Reconcilliation completed & provided to patient/care provider Clinical Summary of Care Provided Notes: Charges/Coding Procedures Integumentary [id number]: [id number] Shannon musc/fascia 20 sq cm/< Assessment/Plan Assessment/Plan (1) Pressure ulcer of left heel, stage 4: CODE(S): L89.624 - Pressure ulcer of left heel, stage 4 (2) Diabetic ulcer of left foot: CODE(S): E11.621 - Type 2 diabetes mellitus with foot ulcer; L97.529 - Non-pressure chronic ulcer of other part of left foot with unspecified severity QUALIFIERS: Diabetic foot ulcer location: heel Diabetes mellitus type: type 2 Non-pressure ulcer stage: with muscle involvement without evidence of necrosis Qualified Code(s): E11.621 - Type 2 diabetes mellitus with foot ulcer; L97.425 - Non-pressure chronic ulcer of left heel and midfoot with muscle involvement without evidence of necrosis (3) Diabetes mellitus: CODE(S): E11.9 - Type 2 diabetes mellitus without complications QUALIFIERS: Diabetes mellitus type: type 2 Diabetes mellitus complication status: with skin complications (4) Swelling of lower extremity: CODE(S): M79.89 - Other specified soft tissue disorders (5) Lower extremity edema: CODE(S): R60.0 - Localized edema (6) Cerebrovascular disease: CODE(S): I67.9 - Cerebrovascular disease, unspecified (7) History of cerebrovascular accident: CODE(S): Z86.73 - Personal history of transient ischemic attack (TIA), and cerebral infarction without residual deficits (8) Hypertension: CODE(S): I10 - Essential (primary) hypertension (9) Chronic renal disease: CODE(S): N18.9 - Chronic kidney disease, unspecified (10) History of toe surgery: CODE(S): Z98.890 - Other specified postprocedural states (11) History of arthroplasty of left shoulder: CODE(S): Z96.612 - Presence of left artificial shoulder joint (12) History of partial hysterectomy: CODE(S): Z90.711 - Acquired absence of uterus with remaining cervical stump (13) History of cataract surgery: CODE(S): Z98.49 - Cataract extraction status, unspecified eye (14) History of total right knee replacement: CODE(S): Z96.651 - Presence of right artificial knee joint (15) History of lumbar surgery: CODE(S): Z98.890 - Other specified postprocedural states (16) Obesity (BMI 30.0-34.9): CODE(S): E66.811 - Obesity, class 1 PLAN: Plan This is a 74-year-old obese, diabetic female who presented with an ulceration on the left posterior heel, which had been present for the better part of 1 year. The patient and her family had been using Silvadene topically prior to initial presentation. The ulceration had been noted to worsen over the 3 weeks prior to presentation. The ulceration appears to be related to pressure, as it is located at a site which would normally rest against the bed surface when she is in the recumbent position. Management recommendations have been discussed with the patient, and her family, at the bedside. Offloading measures are to be continued. The patient's family has been advised to use a rolled towel or blanket on her posterior calf to lift her posterior heel off of the bed surface. In addition, it has been recommended that they acquire a Podus boot, which they have done. The Podus boot will protect the patient's heel from trauma and pressure. We have prescribed collagenase Santyl to be used topically on a daily basis. Collagenase Santyl applied topically will provide enzymatic debridement. The patient's family has been instructed in the appropriate means of application. The patient has been advised to optimize her glycemic control and her nutritional intake. Glucerna has been recommended as a nutritional supplement. The patient's hemoglobin A1c, obtained on September 04, 2024, was 12.5. A discussion has been undertaken with the patient and her family informing them that this is indicative of recent poor control of her diabetic condition. So as to assist in the management of the patient's diabetes, the patient's recent laboratory results have been forwarded to her primary care physician, Dr. Frank, and the patient and her family have been encouraged to collaborate with Dr. Frank regarding diabetes management. 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 These findings do not appear to be a significant impediment to wound healing. The patient has been advised to elevate her lower extremities as much as possible. Elevation is to be to heart level, or higher. Elevation is to be during both daytime and nighttime hours. Prolonged idle sitting has been discouraged. Ambulation has been encouraged, although the patient is extremely limited in her capacity. A Tubigrip compression garment is to be donned on a daily basis. The recent culture results have been reviewed, and discussed with the patient and her family. The culture was positive for Morganella morganii, Staphylococcus aureus, Bacteroides fragilis, and Schaalia canis. The Patient has been placed on Augmentin 500 mg / 125 mg orally every 12 hours for total of 12 days, which has been completed. Electrolytes were obtained on September 20, 2024. It was seen that the patient's potassium level was high (5.8). The patient's recent lab results also revealed evidence of renal impairment, with a BUN of 78 and a creatinine of 3.45. The patient's Augmentin dose has been adjusted based upon calculated creatinine clearance. The patient and her family have been strongly advised to schedule an appointment with her primary care physician, Dr. Frank, for review of recent laboratory results, and evaluation/management of her diabetes mellitus, electrolytes, renal function, etc. Medical records have been sent to Dr. Frank so he is aware of the recent updates to the patient's medical condition, as well as her most recent laboratory results. The patient and her family have been advised to seek an appointment with Dr. Frank for evaluation regarding these concerns. Despite repeated recommendations to the patient and her family to schedule an appointment with Dr. Frank, they have not done so. We have once again urged the patient and her family to follow-up with Dr. Frank regarding evaluation and management of her diabetes, renal status, electrolytes, etc. An x-ray of the left heel reveals soft tissue edema and swelling, but no radiographic evidence of osteomyelitis. The patient is to return in 2 weeks for reevaluation relative to her left heel ulceration. Total time: 26 minutes
== END 2024-10-21 23:59 | disposition home or self-care (01) ==
LOC: WC 15:00
PROVIDERS: PCP Family Medicine; Referring Provider Family Medicine; Visit Provider Surgery
DX: L89.623 Pressure ulcer of left heel, stage 3 (principal); E11.22 Type 2 diabetes mellitus with diabetic chronic kidney disease; N18.9 Chronic kidney disease, unspecified; E66.811 Obesity, class 1; I12.9 Hypertensive chronic kidney disease with stage 1 through stage 4 chronic kidney disease, or unspecified chronic kidney disease; Z68.33 Body mass index [BMI] 33.0-33.9, adult; Z79.84 Long term (current) use of oral hypoglycemic drugs; R60.0 Localized edema
CPT/HCPCS: 11042; 11043

== ENCOUNTER 2024-11-12 08:00 | Outpatient (RCR) | payer OTHER, SELFPAY ==
[2024-10-29 14:32] VITALS: BP 138/69; PULSE 65; RESP 16; TEMP 36.5
--- NOTE | 2024-10-30 09:01 | WC ---
PHOTO 10/29/24 LEFT HEEL
--- NOTE | 2024-10-30 16:22 | PCM.WC.HP ---
History of Present Illness Date of Service: 10/29/24 Chief Complaint: Diabetic left foot ulceration due to pressure History of Wound: This is a 74-year-old obese, diabetic female who presented with an ulceration on her left posterior heel. According to the patient, her , and her adult daughter, the ulceration had been present for the better part of 1 year. It had waxed and waned, and had, at times, appeared to be nearly healed. Approximately 3 weeks prior to presentation, the ulceration was noted to be much worse. The ulceration started as a blister. The patient and her family had been using Silvadene topically. The patient is immobile, unable to due to a prior cerebrovascular accident. She claims to sleep in a recliner. She sits in idle fashion throughout the day. She suffers from chronic swelling and edema in her lower extremities, which is noted to be worse late in the day. She possesses graduated compression stockings, which had not been worn on a regular basis, and of a degree of compression which is not known. The patient has a history of cerebrovascular accident, renal disease, and hypertension. Her history is negative for myocardial infarction, congestive heart failure, pulmonary disease, and thyroid disease. FOR[facility]LY [facility] Medical History Pressure ulcer of left heel, stage 4 Obesity (BMI 30.0-34.9) Chronic renal disease Hypertension Lower extremity edema Swelling of lower extremity History of cerebrovascular accident Cerebrovascular disease Diabetes mellitus Pressure ulcer of left heel, stage 3 Diabetic ulcer of left foot Home Medications ?Medication ?Instructions ?Recorded ?Last Taken ?Type atenolol 25 mg tablet 25 mg PO DAILY BP MED 03/13/17 05/18/20 History lisinopril 20 mg tablet 40 mg PO QHS BP MED 03/13/17 05/17/20 History pramipexole 0.5 mg tablet (Mirapex) 0.5 mg PO QHS restless legs 03/13/17 05/17/20 History aspirin 81 mg chewable tablet 81 mg PO DAILY@0800 health 05/18/20 05/18/20 History maintenance furosemide 40 mg tablet 40 mg PO DAILY diuretic 05/18/20 05/18/20 History insulin human U-100 NPH-regulr 10 units SQ DINNER diabetes 01/25/21 01/24/21 History 70-30 mix 100 unit/mL subcutaneous susp insulin human U-100 NPH-regulr 20 units SQ DAILY diabetes 05/18/20 05/18/20 History 70-30 mix 100 unit/mL subcutaneous susp potassium chloride 10 mEq 10 meq PO DAILY supplement 05/18/20 05/18/20 History capsule,extended release glipizide 5 mg tablet 5 mg PO 09/04/24 Unknown History lorazepam 0.5 mg tablet (Ativan) 0.5 mg PO Q4H PRN anxiety 09/04/24 Unknown History metolazone 2.5 mg tablet 2.5 mg PO 09/04/24 Unknown History sulfamethoxazole 800 1 tab PO Q12H #28 TABLETS 09/16/24 Unknown Rx mg-trimethoprim 160 mg tablet (Bactrim DS) metronidazole 500 mg tablet 500 mg PO Q8H Infected foot wound 09/24/24 Unknown Rx #30 tabs amoxicillin 500 mg-potassium 1 tab PO Q12H Wound infection #24 09/26/24 Unknown Rx clavulanate 125 mg tablet tabs (Augmentin) Allergy/AdvReac Type Severity Reaction Status Date / Time pravastatin AdvReac muscle and Verified 09/04/24 14:31 leg pain Surgical History History of lumbar surgery History of total right knee replacement History of cataract surgery History of partial hysterectomy History of arthroplasty of left shoulder History of toe surgery Social History Smoking Status: Never smoker Physical Exam Const alert, oriented x3 and no apparent distress Constitutional Narrative: The patient's abdomen appears to be obese. Her BMI is 33.4. She is debilitated, with limitations in mobility. General Appearance: cooperative, comfortable and well developed Orientation / Consciousness: awake and oriented to person HEENT normocephalic and head/scalp atraumatic Head and Scalp: normal to inspection, normocephalic and atraumatic Face and Sinus: normal facial exam Nose: external nose normal External Ear: external ears normal Eyes EOMs intact bilaterally General Eye: normal appearance of both eyes Resp normal respiratory effort, normal air movement, no retractions and no use of accessory muscles Effort and Inspection: able to speak in complete sentences Extremity no calf tenderness General Extremity: Negative for clubbing or cyanosis Skin Wound Narrative: Moderate swelling and edema are noted in the patient's lower extremities bilaterally. An ulceration is noted on the patient's left posterior heel, which appears to be a stage III/IV pressure ulceration. The ulceration extends through all layers of the dermis and subcutaneous tissues, and possibly down to fascial level. There is a moderate amount of bioburden and devitalized material. Valorie-ulcer erythema appears to be diminishing. Ulcer margins are not well beveled. Dimensions are documented elsewhere. The ulceration is slightly smaller. There is no drainage. The disagreeable odor which had been noted at prior visits is no longer present. Neuro oriented x3 and CN's II-XII intact bilaterally Sensorium / Orientation: awake, alert, oriented to person, oriented to place and oriented to time Speech: speech normal Psych Appearance: grossly normal and appropriate Attitude: calm Activity / Motor Behavior: appropriate eye contact Speech: normal speech Mood & Affect: euthymic mood Thought Process: normal thought process Thought Content: normal thought content Attention / Concentration: attention grossly intact Debridement Note Debridement Note Wound debrided: Left posterior heel ulceration Laterality: Left Wound Grade/Stage: Stage III pressure ulcer Type of Debridement: Excisional debridement Anesthesia Used: 5% Lidocaine Gel Depth: Down to and including healthy tissue and in the subcutaneous layer Percentage of wound debrided: 100 Instrument Used: 5mm curette Tissue Removed: Bioburden and devitalized material Severity: Fat Layer Exposed (Debridement down to fascia) Amount of bleeding with debridement: Mild Bleeding Controlled with: Compression and gauze Patient tolerated procedure: Patient tolerated procedure well Post-Debridement Measurements and Additional Note: Post-Debridement Measurements/Treatment - Nurse 1 - General Ulcer Assessment Start: 10/29/24 14:30 Freq: Status: Active Protocol: NAVI Activity Type Activity Date Activity User E-sign Co-sign Detail Recorded Client Recorded Date Recorded By Document 10/29/24 14:32 [facility] [id number] 10/29/24 14:41 [facility] 10/29/24 14:32 - Today's Visit Information Type of service Follow-up Visit (Physician/VETERANS' COORDINATOR ) Arrival Mode Wheelchair Transfer Assistance Other Transfer Assist (Other) 3 MAX ASSIST Accompanied by DAUGHTER Patient Identification Verified (Name & No ) Vital Signs Temperature (97.8 F-99.1 F) 97.7 F L Temperature Source Temporal Pulse Rate (60-100) 65 Pulse Location Monitor Respiratory Rate (12-18) 16 Respiratory rate source Observation Oxygen Delivery Method Room Air Blood Pressure (90/60-120/80) 138/69 H Blood Pressure Mean 92 Source Monitor Position Sitting Blood Pressure Location Right Arm History Since Last Visit- (Skip if this is Patient's initial visit) Have you changed medications since your No last visit? Any new allergies or adverse reactions No Had a fall/change in ADL's that may No increase risk of falls Signs or symptoms of abuse and/or No neglect since last visit Have you been in the hospital since your No last visit? Has dressing in place as prescribed Yes Has compression in place as prescribed N/A Has offloadiing in place as prescribed Yes Experienced any changes in pain level or No management Left Footwear Multipodus Splint/Boot Right Footwear Diabetic Shoe Pain Scale: 0-10 Numeric Is Patient Pain Free? Yes - Nurse 1 - General Ulcer Measurement Start: 10/29/24 14:30 Freq: Status: Active Protocol: Activity Type Activity Date Activity User E-sign Co-sign Detail Recorded Client Recorded Date Recorded By Document 10/29/24 14:32 [facility] [id number] 10/29/24 14:41 [facility] 10/29/24 14:32 Wound Center Nurse 1 #1 L Heel -Combined with other wound No -Current Size (cm) - Length 0.9 -Current Size (cm) - Width 1 -Current Size (cm) - Depth 0.1 -Total Square Cm 0.9 -Date of Last Picture (Recall this 10/29/24 field) -Photo Taken Yes -Epithelialization Small 1-33% -Tunneling No -Undermining/Tunneling No -Circular Undermining No -Exudate Amt Medium -Exudate Type Serous -Wound Margin Distinct, Outline Attached -Granulation Amt Small (1-33%) -Granulation Quality [place] -Slough/Fibrin Yes -Necrosis Amt Large (67-100%) -Necrotic Tissue Type Adherent Slough -Texture (Valorie-wound Skin Appearance) Assessed, Scarring -Moisture (Valorie-wound Skin Appearance) Assessed -Color (Valorie-wound Skin Appearance) Assessed -Temperature (Valorie-wound Skin No Abnormality Appearance) (Pt Warm) -Tenderness on Palpation (Valorie-wound No Skin Appearance) -Ulcer Cleansing Rinsed/ Irrigated with Saline -Foul Odor after Cleansing No -Anesthetic Used 5% Lidocaine Gel - Nurse 2 - General Ulcer CM Notes Start: 10/29/24 14:30 Freq: Status: Active Protocol: Activity Type Activity Date Activity User E-sign Co-sign Detail Recorded Client Recorded Date Recorded By Document 10/29/24 15:12 [id number] 10/29/24 15:14 DS 10/29/24 15:12 Wound Center Nurse 2 -Time 15:12 -Correct Patient Yes -Correct Side, Site, Position Yes -Correct Procedure Yes -Procedure Performed Yes -Type of Procedure Debridement -Clinical Debridement Subcutaneous -Tissue Removed Subcutaneous -Post Debridement (cm) - Length 0.8 -Post Debridement (cm) - Width 1.2 -Post Debridement (cm) - Depth 0.3 -Total Square (Post) (cm) 0.96 -Area of Debridement (cm) - Length 0.8 -Area of Debridement (cm) - Width 1.2 -Total Square (Area) (cm) 0.96 -Tunneling No -Undermining/Tunneling No -Circular Undermining No -Wound/Ulcer Outcome Not Healed -Bleeding Controlled with Pressure -Treatment Response Procedure Tolerated Well -Debridement - Subq, 1st 20sq cm Yes Pain Scale: 0-10 Numeric Is Patient Pain Free? Yes - Nurse 3 - General Ulcer D/C NN Start: 10/29/24 14:30 Freq: Status: Active Protocol: Activity Type Activity Date Activity User E-sign Co-sign Detail Recorded Client Recorded Date Recorded By Document 10/29/24 15:21 [facility] [id number] 10/29/24 15:23 [facility] 10/29/24 15:21 Wound Care Center Nurse 3 #1 L Heel -Ulcer Cleansing Rinsed/ Irrigated with Saline -Foul Odor after Cleansing No -Other Dressing santyl, drsg per ml lvn lpn -Primary Dressing Covered/Secured with Dry Gauze & Roll Gauze, Secured with Tape -Other Covering slightly moist gauze LLE -Compression Wrap Santos Wrap -Other to secure drsg Treatment Response Procedure Tolerated Well Pain Scale: 0-10 Numeric Is Patient Pain Free? Yes WC - Visit Discharge Discharge Condition Stable Ambulatory Status Wheelchair Transportation Private Auto Accompanied by daughter Charges/Coding Procedures Integumentary [id number]: [id number] [place] subq tissue 20 sq cm/< Assessment/Plan Assessment/Plan (1) Pressure ulcer of left heel, stage 3: CODE(S): L89.623 - Pressure ulcer of left heel, stage 3 (2) Diabetic ulcer of left foot: CODE(S): E11.621 - Type 2 diabetes mellitus with foot ulcer; L97.529 - Non-pressure chronic ulcer of other part of left foot with unspecified severity QUALIFIERS: Diabetic foot ulcer location: heel Diabetes mellitus type: type 2 Non-pressure ulcer stage: with fat layer exposed Qualified Code(s): E11.621 - Type 2 diabetes mellitus with foot ulcer; L97.422 - Non-pressure chronic ulcer of left heel and midfoot with fat layer exposed (3) Diabetes mellitus: CODE(S): E11.9 - Type 2 diabetes mellitus without complications QUALIFIERS: Diabetes mellitus type: type 2 Diabetes mellitus complication status: with skin complications (4) Swelling of lower extremity: CODE(S): M79.89 - Other specified soft tissue disorders (5) Lower extremity edema: CODE(S): R60.0 - Localized edema (6) Cerebrovascular disease: CODE(S): I67.9 - Cerebrovascular disease, unspecified (7) History of cerebrovascular accident: CODE(S): Z86.73 - Personal history of transient ischemic attack (TIA), and cerebral infarction without residual deficits (8) Hypertension: CODE(S): I10 - Essential (primary) hypertension (9) Chronic renal disease: CODE(S): N18.9 - Chronic kidney disease, unspecified (10) History of toe surgery: CODE(S): Z98.890 - Other specified postprocedural states (11) History of arthroplasty of left shoulder: CODE(S): Z96.612 - Presence of left artificial shoulder joint (12) History of partial hysterectomy: CODE(S): Z90.711 - Acquired absence of uterus with remaining cervical stump (13) History of cataract surgery: CODE(S): Z98.49 - Cataract extraction status, unspecified eye (14) History of total right knee replacement: CODE(S): Z96.651 - Presence of right artificial knee joint (15) History of lumbar surgery: CODE(S): Z98.890 - Other specified postprocedural states (16) Obesity (BMI 30.0-34.9): CODE(S): E66.811 - Obesity, class 1 PLAN: Plan This is a 74-year-old obese, diabetic female who presented with an ulceration on the left posterior heel, which had been present for the better part of 1 year. The patient and her family had been using Silvadene topically prior to initial presentation. The ulceration had been noted to worsen over the 3 weeks prior to presentation. The ulceration appears to be related to pressure, as it is located at a site which would normally rest against the bed surface when she is in the recumbent position. Management recommendations have been discussed with the patient, and her family, at the bedside. Offloading measures are to be continued. The patient's family has been advised to use a rolled towel or blanket on her posterior calf to lift her posterior heel off of the bed surface. In addition, it has been recommended that they acquire a Podus boot, which they have done. The Podus boot will protect the patient's heel from trauma and pressure. We have prescribed collagenase Santyl to be used topically on a daily basis. Collagenase Santyl applied topically will provide enzymatic debridement. The patient's family has been instructed in the appropriate means of application. The patient has been advised to optimize her glycemic control and her nutritional intake. Glucerna has been recommended as a nutritional supplement. The patient's hemoglobin A1c, obtained on September 04, 2024, was 12.5. A discussion has been undertaken with the patient and her family informing them that this is indicative of recent poor control of her diabetic condition. So as to assist in the management of the patient's diabetes, the patient's recent laboratory results have been forwarded to her primary care physician, Dr. Frank, and the patient and her family have been encouraged to collaborate with Dr. Frank regarding diabetes management. 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 These vascular lab results do not appear to be a significant impediment to wound healing. The patient has been advised to elevate her lower extremities as much as possible. Elevation is to be to heart level, or higher. Elevation is to be during both daytime and nighttime hours. Prolonged idle sitting has been discouraged. Ambulation has been encouraged, although the patient is extremely limited in her capacity. A Tubigrip compression garment is to be donned on a daily basis. The recent culture results have been reviewed, and discussed with the patient and her family. The culture was positive for Morganella morganii, Staphylococcus aureus, Bacteroides fragilis, and Schaalia canis. The Patient was placed on Augmentin 500 mg / 125 mg orally every 12 hours for total of 12 days, which has been completed. Electrolytes were obtained on September 20, 2024. It was seen that the patient's potassium level was high (5.8). The patient's recent lab results also revealed evidence of renal impairment, with a BUN of 78 and a creatinine of 3.45. The patient and her family have been repeatedly advised to schedule an appointment with her primary care physician, Dr. Frank, for review of recent laboratory results, and evaluation/management of her diabetes mellitus, electrolytes, renal function, etc. Medical records have been sent to Dr. Frank so he is aware of the recent updates to the patient's medical condition, as well as her most recent laboratory results. The patient and her family have been advised to seek an appointment with Dr. Frank for evaluation regarding these concerns. Despite repeated recommendations to the patient and her family to schedule an appointment with Dr. Frank, they have not done so. We have once again urged the patient and her family to follow-up with Dr. Frank regarding evaluation and management of her diabetes, renal status, electrolytes, etc. An x-ray of the left heel reveals soft tissue edema and swelling, but no radiographic evidence of osteomyelitis. The patient is to return in 2 weeks for reevaluation relative to her left heel ulceration. Total time: 24 minutes
[2024-11-12 08:15] VITALS: BP 146/65; PULSE 58; RESP 16; TEMP 36.6
--- NOTE | 2024-11-13 10:07 | WC ---
PHOTO - LEFT HEEL 11-12-24
--- NOTE | 2024-11-15 13:40 | PCM.WC.HP ---
History of Present Illness Date of Service: 11/12/24 Chief Complaint: Diabetic left foot ulceration due to pressure History of Wound: This is a 74-year-old obese, diabetic female who presented with an ulceration on her left posterior heel. According to the patient, her , and her adult daughter, the ulceration had been present for the better part of 1 year. It had waxed and waned, and had, at times, appeared to be nearly healed. Approximately 3 weeks prior to presentation, the ulceration was noted to be much worse. The ulceration started as a blister. The patient and her family had been using Silvadene topically. The patient is immobile, unable to due to a prior cerebrovascular accident. She claims to sleep in a recliner. She sits in idle fashion throughout the day. She suffers from chronic swelling and edema in her lower extremities, which is noted to be worse late in the day. She possesses graduated compression stockings, which had not been worn on a regular basis, and of a degree of compression which is not known. The patient has a history of cerebrovascular accident, renal disease, and hypertension. Her history is negative for myocardial infarction, congestive heart failure, pulmonary disease, and thyroid disease. [facility] Medical History Pressure ulcer of left heel, stage 4 Obesity (BMI 30.0-34.9) Chronic renal disease Hypertension Lower extremity edema Swelling of lower extremity History of cerebrovascular accident Cerebrovascular disease Diabetes mellitus Pressure ulcer of left heel, stage 3 Diabetic ulcer of left foot Home Medications ?Medication ?Instructions ?Recorded ?Last Taken ?Type atenolol 25 mg tablet 25 mg PO DAILY BP MED 03/13/17 05/18/20 History lisinopril 20 mg tablet 40 mg PO QHS BP MED 03/13/17 05/17/20 History pramipexole 0.5 mg tablet (Mirapex) 0.5 mg PO QHS restless legs 03/13/17 05/17/20 History aspirin 81 mg chewable tablet 81 mg PO DAILY@0800 health 05/18/20 05/18/20 History maintenance furosemide 40 mg tablet 40 mg PO DAILY diuretic 05/18/20 05/18/20 History insulin human U-100 NPH-regulr 10 units SQ DINNER diabetes 01/25/21 01/24/21 History 70-30 mix 100 unit/mL subcutaneous susp insulin human U-100 NPH-regulr 20 units SQ DAILY diabetes 05/18/20 05/18/20 History 70-30 mix 100 unit/mL subcutaneous susp potassium chloride 10 mEq 10 meq PO DAILY supplement 05/18/20 05/18/20 History capsule,extended release glipizide 5 mg tablet 5 mg PO 09/04/24 Unknown History lorazepam 0.5 mg tablet (Ativan) 0.5 mg PO Q4H PRN anxiety 09/04/24 Unknown History metolazone 2.5 mg tablet 2.5 mg PO 09/04/24 Unknown History sulfamethoxazole 800 1 tab PO Q12H #28 TABLETS 09/16/24 Unknown Rx mg-trimethoprim 160 mg tablet (Bactrim DS) metronidazole 500 mg tablet 500 mg PO Q8H Infected foot wound 09/24/24 Unknown Rx #30 tabs amoxicillin 500 mg-potassium 1 tab PO Q12H Wound infection #24 09/26/24 Unknown Rx clavulanate 125 mg tablet tabs (Augmentin) Allergy/AdvReac Type Severity Reaction Status Date / Time pravastatin AdvReac muscle and Verified 09/04/24 14:31 leg pain Surgical History History of lumbar surgery History of total right knee replacement History of cataract surgery History of partial hysterectomy History of arthroplasty of left shoulder History of toe surgery Social History Smoking Status: Never smoker Physical Exam Const alert, oriented x3 and no apparent distress Constitutional Narrative: The patient's abdomen appears to be obese. Her BMI is 33.4. She is debilitated, with limitations in mobility. General Appearance: cooperative, comfortable and well developed Orientation / Consciousness: awake and oriented to person HEENT normocephalic and head/scalp atraumatic Head and Scalp: normal to inspection, normocephalic and atraumatic Face and Sinus: normal facial exam Nose: external nose normal External Ear: external ears normal Eyes EOMs intact bilaterally General Eye: normal appearance of both eyes Resp normal respiratory effort, normal air movement, no retractions and no use of accessory muscles Effort and Inspection: able to speak in complete sentences Extremity no calf tenderness General Extremity: Negative for clubbing or cyanosis Skin Wound Narrative: Mild swelling and edema are noted in the patient's lower extremities bilaterally. An ulceration is noted on the patient's left posterior heel, which appears to be a stage III/IV pressure ulceration. The ulceration extends through all layers of the dermis and subcutaneous tissues. There is a small amount of bioburden. The base of the ulceration is generally pink and healthy in appearance, with active granulation tissue. Valorie-ulcer erythema has resolved. Ulcer margins are well beveled. Dimensions are documented elsewhere. The ulceration is significantly smaller than previously noted several weeks ago, at the patient's last appointment. There is no drainage. Neuro oriented x3 and CN's II-XII intact bilaterally Sensorium / Orientation: awake, alert, oriented to person, oriented to place and oriented to time Speech: speech normal Psych Appearance: grossly normal and appropriate Attitude: calm Activity / Motor Behavior: appropriate eye contact Speech: normal speech Mood & Affect: euthymic mood Thought Process: normal thought process Thought Content: normal thought content Attention / Concentration: attention grossly intact Debridement Note Debridement Note Wound debrided: Left posterior heel ulceration Laterality: Left Wound Grade/Stage: Stage III pressure ulcer Type of Debridement: Excisional debridement Anesthesia Used: 5% Lidocaine Gel and Cetacaine Depth: Down to and including healthy tissue and in the subcutaneous layer Percentage of wound debrided: 100 Instrument Used: 3mm curette Tissue Removed: Bioburden Severity: Fat Layer Exposed (Debridement down to fascia) Amount of bleeding with debridement: Mild Bleeding Controlled with: Compression and gauze Patient tolerated procedure: Patient tolerated procedure well Post-Debridement Measurements and Additional Note: Post-Debridement Measurements/Treatment - Nurse 1 - General Ulcer Assessment Start: 10/29/24 14:30 Freq: Status: Active Protocol: NAVI Activity Type Activity Date Activity User E-sign Co-sign Detail Recorded Client Recorded Date Recorded By Document 10/29/24 14:32 [facility] [id number] 10/29/24 14:41 [facility] Document 11/12/24 08:15 [facility] [id number] 11/12/24 08:26 [facility] 10/29/24 11/12/24 14:32 08:15 - Today's Visit Information Type of service Follow-up Visit Follow-up Visit (Physician/AIRCRAFT ASSEMBLER (Physician/AIRCRAFT ASSEMBLER ) ) Arrival Mode Wheelchair Wheelchair Transfer Assistance Other Manual Transfer Assist (Other) 3 MAX ASSIST 3 max/extensive Accompanied by DAUGHTER Patient Identification Verified (Name & No Yes ) Patient Requires Transmission-Based No Precautions Vital Signs Temperature (97.8 F-99.1 F) 97.7 F L 97.9 F Temperature Source Temporal Temporal Pulse Rate (60-100) 65 58 L Pulse Location Monitor Monitor Respiratory Rate (12-18) 16 16 Respiratory rate source Observation Observation Oxygen Delivery Method Room Air Room Air Blood Pressure (90/60-120/80) 138/69 H 146/65 H Blood Pressure Mean 92 92 Source Monitor Monitor Position Sitting Sitting Blood Pressure Location Right Arm Left Arm History Since Last Visit- (Skip if this is Patient's initial visit) Have you changed medications since your No No last visit? Any new allergies or adverse reactions No No Had a fall/change in ADL's that may No No increase risk of falls Signs or symptoms of abuse and/or No No neglect since last visit Have you been in the hospital since your No No last visit? Has dressing in place as prescribed Yes Yes Has compression in place as prescribed N/A Yes Has offloadiing in place as prescribed Yes Yes Experienced any changes in pain level or No No management Left Footwear Multipodus Multipodus Splint/Boot Splint/Boot Right Footwear Diabetic Shoe Regular Shoe Pain Scale: 0-10 Numeric Is Patient Pain Free? Yes Yes - Nurse 1 - General Ulcer Measurement Start: 10/29/24 14:30 Freq: Status: Active Protocol: Activity Type Activity Date Activity User E-sign Co-sign Detail Recorded Client Recorded Date Recorded By Document 10/29/24 14:32 [facility] [id number] 10/29/24 14:41 [facility] Document 11/12/24 08:15 [facility] [id number] 11/12/24 08:26 [facility] 10/29/24 11/12/24 14:32 08:15 Wound Center Nurse 1 #1 L Heel -Combined with other wound No No -Current Size (cm) - Length 0.9 0.4 -Current Size (cm) - Width 1 0.3 -Current Size (cm) - Depth 0.1 0.2 -Total Square Cm 0.9 0.12 -Date of Last Picture (Recall this 10/29/24 11/12/24 field) -Photo Taken Yes Yes -Epithelialization Small 1-33% Medium 34-66% -Tunneling No No -Undermining/Tunneling No No -Circular Undermining No No -Exudate Amt Medium Medium -Exudate Type Serous Serosanguineous -Wound Margin Distinct, Distinct, Outline Outline Attached Attached -Granulation Amt Small (1-33%) Large (67-100%) -Granulation Quality [place] Pale,[place] -Slough/Fibrin Yes Yes -Necrosis Amt Large (67-100%) Small (1-33%) -Necrotic Tissue Type Adherent Slough Adherent Slough -Texture (Valorie-wound Skin Appearance) Assessed, Assessed, Scarring Scarring -Moisture (Valorie-wound Skin Appearance) Assessed Assessed, Maceration,Dry/ Scaly -Color (Valorie-wound Skin Appearance) Assessed Assessed -Temperature (Valorie-wound Skin No Abnormality No Abnormality Appearance) (Pt Warm) (Pt Warm) -Tenderness on Palpation (Valorie-wound No No Skin Appearance) -Ulcer Cleansing Rinsed/ Rinsed/ Irrigated with Irrigated with Saline Saline -Foul Odor after Cleansing No No -Anesthetic Used 5% Lidocaine 5% Lidocaine Gel Gel WC - Nurse 2 - General Ulcer CM Notes Start: 10/29/24 14:30 Freq: Status: Active Protocol: Activity Type Activity Date Activity User E-sign Co-sign Detail Recorded Client Recorded Date Recorded By Document 10/29/24 15:12 DS [id number] 10/29/24 15:14 DS Document 11/12/24 08:46 DS [id number] 11/12/24 08:54 DS 10/29/24 11/12/24 15:12 08:46 Wound Center Nurse 2 #1 L Heel -Time 15:12 08:46 -Correct Patient Yes Yes -Correct Side, Site, Position Yes Yes -Correct Procedure Yes Yes -Procedure Performed Yes Yes -Type of Procedure Debridement Debridement -Clinical Debridement Subcutaneous Subcutaneous -Tissue Removed Subcutaneous Subcutaneous -Post Debridement (cm) - Length 0.8 0.5 -Post Debridement (cm) - Width 1.2 0.7 -Post Debridement (cm) - Depth 0.3 0.2 -Total Square (Post) (cm) 0.96 0.35 -Area of Debridement (cm) - Length 0.8 0.5 -Area of Debridement (cm) - Width 1.2 0.7 -Total Square (Area) (cm) 0.96 0.35 -Tunneling No No -Undermining/Tunneling No No -Circular Undermining No No -Wound/Ulcer Outcome Not Healed Not Healed -Foul Odor after Cleansing No -Bioengineered Tissue No -Bleeding Controlled with Pressure Pressure -Treatment Response Procedure Procedure Tolerated Well Tolerated Well -Other Assistive Device podus boot -Debridement - Subq, 1st 20sq cm Yes Yes Pain Scale: 0-10 Numeric Is Patient Pain Free? Yes Yes - Nurse 3 - General Ulcer D/C NN Start: 10/29/24 14:30 Freq: Status: Active Protocol: Activity Type Activity Date Activity User E-sign Co-sign Detail Recorded Client Recorded Date Recorded By Document 10/29/24 15:21 [facility] [id number] 10/29/24 15:23 [facility] Document 11/12/24 09:03 [facility] [id number] 11/12/24 09:04 [facility] 10/29/24 11/12/24 15:21 09:03 Wound Care Center Nurse 3 #1 L Heel -Ulcer Cleansing Rinsed/ Rinsed/ Irrigated with Irrigated with Saline Saline -Foul Odor after Cleansing No No -Primary Dressing Applied Aquacel Extra -Other Dressing santyl, drsg abd per ml ammunition officer -Primary Dressing Covered/Secured with Dry Gauze & Dry Gauze & Roll Gauze, Roll Gauze, Secured with Secured with Tape Tape -Other Covering slightly moist drsg per kw ammunition officer gauze -Aquacel Extra 1 LLE -Compression Wrap Santos Wrap Santos Wrap -Other to secure drsg applied per kw ammunition officer Treatment Response Procedure Tolerated Well Pain Scale: 0-10 Numeric Is Patient Pain Free? Yes Yes - Visit Discharge Discharge Condition Stable Stable Ambulatory Status Wheelchair Wheelchair Transportation Private Auto Private Auto Accompanied by daughter and daughter Charges/Coding Procedures Integumentary [id number]: [id number] Shannon subq tissue 20 sq cm/< Assessment/Plan Assessment/Plan (1) Pressure ulcer of left heel, stage 3: CODE(S): L89.623 - Pressure ulcer of left heel, stage 3 (2) Diabetic ulcer of left foot: CODE(S): E11.621 - Type 2 diabetes mellitus with foot ulcer; L97.529 - Non-pressure chronic ulcer of other part of left foot with unspecified severity QUALIFIERS: Diabetic foot ulcer location: heel Diabetes mellitus type: type 2 Non-pressure ulcer stage: with fat layer exposed Qualified Code(s): E11.621 - Type 2 diabetes mellitus with foot ulcer; L97.422 - Non-pressure chronic ulcer of left heel and midfoot with fat layer exposed (3) Diabetes mellitus: CODE(S): E11.9 - Type 2 diabetes mellitus without complications QUALIFIERS: Diabetes mellitus type: type 2 Diabetes mellitus complication status: with skin complications (4) Swelling of lower extremity: CODE(S): M79.89 - Other specified soft tissue disorders (5) Lower extremity edema: CODE(S): R60.0 - Localized edema (6) Cerebrovascular disease: CODE(S): I67.9 - Cerebrovascular disease, unspecified (7) History of cerebrovascular accident: CODE(S): Z86.73 - Personal history of transient ischemic attack (TIA), and cerebral infarction without residual deficits (8) Hypertension: CODE(S): I10 - Essential (primary) hypertension (9) Chronic renal disease: CODE(S): N18.9 - Chronic kidney disease, unspecified (10) History of toe surgery: CODE(S): Z98.890 - Other specified postprocedural states (11) History of arthroplasty of left shoulder: CODE(S): Z96.612 - Presence of left artificial shoulder joint (12) History of partial hysterectomy: CODE(S): Z90.711 - Acquired absence of uterus with remaining cervical stump (13) History of cataract surgery: CODE(S): Z98.49 - Cataract extraction status, unspecified eye (14) History of total right knee replacement: CODE(S): Z96.651 - Presence of right artificial knee joint (15) History of lumbar surgery: CODE(S): Z98.890 - Other specified postprocedural states (16) Obesity (BMI 30.0-34.9): CODE(S): E66.811 - Obesity, class 1 PLAN: Plan This is a 74-year-old obese, diabetic female who presented with an ulceration on the left posterior heel, which had been present for the better part of 1 year. The patient and her family had been using Silvadene topically prior to initial presentation. The ulceration had been noted to worsen over the 3 weeks prior to presentation. The ulceration appears to be related to pressure, as it is located at a site which would normally rest against the bed surface when she is in the recumbent position. Management recommendations have been discussed with the patient, and her family, at the bedside. Offloading measures are to be continued. The patient's family has been advised to use a rolled towel or blanket on her posterior calf to lift her posterior heel off of the bed surface. In addition, the patient's family has obtained a Podus boot, which the patient has been using for offloading purposes. The ulceration appears markedly improved, and has decreased in size significantly. The base of the ulceration is generally pink and healthy in appearance. Therefore, we are to implement the use of Aquacel Ag topically, which will be applied on a daily basis. The patient's family has been instructed in the appropriate means of application. The patient has been advised to optimize her glycemic control and her nutritional intake. Glucerna has been recommended as a nutritional supplement. The patient's hemoglobin A1c, obtained on September 04, 2024, was 12.5. Recent blood sugars have been running around 180-190. A discussion has been undertaken with the patient and her family informing them that this is indicative of poor control of her diabetic condition. So as to assist in the management of the patient's diabetes, the patient's recent laboratory results have been forwarded to her primary care physician, Dr. Frank, and the patient and her family have been encouraged to collaborate with Dr. Frank regarding diabetes management. Furthermore, recent lab results have indicated evidence of renal impairment, and mild electrolyte abnormalities have also been noted. The patient, and her family, have been repeatedly advised to follow-up with their primary care physician, Dr. Frank. The patient's laboratory results have been forwarded to Dr. Frank for his review. Unfortunately, despite repeated advisement to follow-up with the patient's primary care physician, this has not been done. 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 These vascular lab results do not appear to be a significant impediment to wound healing. The patient has been advised to elevate her lower extremities as much as possible. Elevation is to be to heart level, or higher. Elevation is to be during both daytime and nighttime hours. Prolonged idle sitting has been discouraged. Ambulation has been encouraged, although the patient is extremely limited in her capacity. A Tubigrip compression garment is to be donned on a daily basis. The patient is to return in 2 weeks for reevaluation relative to her left heel ulceration. Total time: 25 minutes
== END 2024-11-21 23:59 | disposition home or self-care (01) ==
LOC: WC 08:00
PROVIDERS: PCP Family Medicine; Referring Provider Family Medicine; Visit Provider Surgery
DX: L89.623 Pressure ulcer of left heel, stage 3 (principal); E11.22 Type 2 diabetes mellitus with diabetic chronic kidney disease; N18.9 Chronic kidney disease, unspecified; I12.9 Hypertensive chronic kidney disease with stage 1 through stage 4 chronic kidney disease, or unspecified chronic kidney disease; Z79.84 Long term (current) use of oral hypoglycemic drugs; R60.0 Localized edema; E66.811 Obesity, class 1; Z68.33 Body mass index [BMI] 33.0-33.9, adult
CPT/HCPCS: 11042

== ENCOUNTER 2024-12-10 08:00 | Outpatient (RCR) | payer OTHER, SELFPAY ==
[2024-11-26 08:08] VITALS: BP 123/73; PULSE 72; RESP 18; TEMP 36.1
--- NOTE | 2024-11-27 08:04 | WC ---
PHOTO: [facility] 11.26.24
--- NOTE | 2024-11-28 14:50 | PCM.WC.HP ---
History of Present Illness Date of Service: 11/26/24 Chief Complaint: Diabetic left foot ulceration due to pressure History of Wound: This is a 74-year-old obese, diabetic female who presented with an ulceration on her left posterior heel. According to the patient, her , and her adult daughter, the ulceration had been present for the better part of 1 year. It had waxed and waned, and had, at times, appeared to be nearly healed. Approximately 3 weeks prior to presentation, the ulceration was noted to be much worse. The ulceration started as a blister. The patient and her family had been using Silvadene topically. The patient is immobile, unable to due to a prior cerebrovascular accident. She claims to sleep in a recliner. She sits in idle fashion throughout the day. She suffers from chronic swelling and edema in her lower extremities, which is noted to be worse late in the day. She possesses graduated compression stockings, which had not been worn on a regular basis, and of a degree of compression which is not known. The patient has a history of cerebrovascular accident, renal disease, and hypertension. Her history is negative for myocardial infarction, congestive heart failure, pulmonary disease, and thyroid disease. [facility] Medical History Pressure ulcer of left heel, stage 4 Obesity (BMI 30.0-34.9) Chronic renal disease Hypertension Lower extremity edema Swelling of lower extremity History of cerebrovascular accident Cerebrovascular disease Diabetes mellitus Pressure ulcer of left heel, stage 3 Diabetic ulcer of left foot Home Medications Medication Instructions Recorded Last Taken Type atenolol 25 mg tablet 25 mg PO DAILY BP MED 03/13/17 05/18/20 History lisinopril 20 mg tablet 40 mg PO QHS BP MED 03/13/17 05/17/20 History pramipexole 0.5 mg tablet (Mirapex) 0.5 mg PO QHS restless legs 03/13/17 05/17/20 History aspirin 81 mg chewable tablet 81 mg PO DAILY@0800 health 05/18/20 05/18/20 History maintenance furosemide 40 mg tablet 40 mg PO DAILY diuretic 05/18/20 05/18/20 History insulin human U-100 NPH-regulr 10 units SQ DINNER diabetes 05/18/20 05/17/20 History 70-30 mix 100 unit/mL subcutaneous susp insulin human U-100 NPH-regulr 20 units SQ DAILY diabetes 05/18/20 05/18/20 History 70-30 mix 100 unit/mL subcutaneous susp potassium chloride 10 mEq 10 meq PO DAILY supplement 05/18/20 05/18/20 History capsule,extended release glipizide 5 mg tablet 5 mg PO 09/04/24 Unknown History lorazepam 0.5 mg tablet (Ativan) 0.5 mg PO Q4H PRN anxiety 09/04/24 Unknown History metolazone 2.5 mg tablet 2.5 mg PO 09/04/24 Unknown History sulfamethoxazole 800 1 tab PO Q12H #28 TABLETS 09/16/24 Unknown Rx mg-trimethoprim 160 mg tablet (Bactrim DS) metronidazole 500 mg tablet 500 mg PO Q8H Infected foot wound 09/24/24 Unknown Rx #30 tabs amoxicillin 500 mg-potassium 1 tab PO Q12H Wound infection #24 09/26/24 Unknown Rx clavulanate 125 mg tablet tabs (Augmentin) Allergy/AdvReac Type Severity Reaction Status Date / Time pravastatin AdvReac muscle and Verified 09/04/24 14:31 leg pain Surgical History History of lumbar surgery History of total right knee replacement History of cataract surgery History of partial hysterectomy History of arthroplasty of left shoulder History of toe surgery Social History Smoking Status: Never smoker Physical Exam Const alert, oriented x3 and no apparent distress Constitutional Narrative: The patient's abdomen appears to be obese. Her BMI is 33.4. She is debilitated, with limitations in mobility. General Appearance: cooperative, comfortable and well developed Orientation / Consciousness: awake and oriented to person HEENT normocephalic and head/scalp atraumatic Head and Scalp: normal to inspection, normocephalic and atraumatic Face and Sinus: normal facial exam Nose: external nose normal External Ear: external ears normal Eyes EOMs intact bilaterally General Eye: normal appearance of both eyes Resp normal respiratory effort, normal air movement, no retractions and no use of accessory muscles Effort and Inspection: able to speak in complete sentences Extremity no calf tenderness General Extremity: Negative for clubbing or cyanosis Skin Wound Narrative: Mild swelling and edema are noted in the patient's lower extremities bilaterally. An ulceration is noted on the patient's left posterior heel, which appears to be a stage III/IV pressure ulceration. The ulceration extends through all layers of the dermis and into the subcutaneous tissues. There is a small amount of bioburden and devitalized tissue. The base of the ulceration is generally pink and healthy in appearance, with active granulation tissue. Valorie-ulcer erythema has resolved. Ulcer margins are well beveled. Dimensions are documented elsewhere. The ulceration is significantly smaller than previously noted several weeks ago, at the patient's last appointment. There is no drainage or odor. Neuro oriented x3 and CN's II-XII intact bilaterally Sensorium / Orientation: awake, alert, oriented to person, oriented to place and oriented to time Speech: speech normal Psych Appearance: grossly normal and appropriate Attitude: calm Activity / Motor Behavior: appropriate eye contact Speech: normal speech Mood & Affect: euthymic mood Thought Process: normal thought process Thought Content: normal thought content Attention / Concentration: attention grossly intact Debridement Note Debridement Note Wound debrided: Left posterior heel ulceration Laterality: Left Wound Grade/Stage: Stage III pressure ulcer Type of Debridement: Excisional debridement Anesthesia Used: 5% Lidocaine Gel and Cetacaine Depth: Down to and including healthy tissue and in the subcutaneous layer Percentage of wound debrided: 100 Instrument Used: 3mm curette Tissue Removed: Bioburden and devitalized tissue Severity: Fat Layer Exposed (Debridement down to fascia) Amount of bleeding with debridement: Mild Bleeding Controlled with: Compression and gauze Patient tolerated procedure: Patient tolerated procedure well Post-Debridement Measurements and Additional Note: Post-Debridement Measurements/Treatment [facility] Nurse 1 - General Ulcer Assessment Start: 11/26/24 08:08 Freq: Status: Active Protocol: [email or web address] Activity Type Activity Date Activity User E-sign Co-sign Detail Recorded Client Recorded Date Recorded By Document 11/26/24 08:08 NIKHIL [id number] 11/26/24 08:13 NIKHIL 11/26/24 08:08 - Today's Visit Information Type of service Follow-up Visit (Physician/ENVIRONMENTAL DEPARTMENT MANAGER ) Arrival Mode Wheelchair Accompanied by Patient Identification Verified (Name & Yes ) Vital Signs Temperature (97.8 F-99.1 F) 96.9 F L Temperature Source Temporal Pulse Rate (60-100) 72 Pulse Location Monitor Respiratory Rate (12-18) 18 Respiratory rate source Observation Oxygen Delivery Method Room Air Blood Pressure (90/60-120/80) 123/73 H Blood Pressure Mean 89 Source Monitor Position Semi-Fowlers Blood Pressure Location Right Arm History Since Last Visit- (Skip if this is Patient's initial visit) Have you changed medications since your No last visit? Any new allergies or adverse reactions No Had a fall/change in ADL's that may No increase risk of falls Signs or symptoms of abuse and/or No neglect since last visit Have you been in the hospital since your No last visit? Has dressing in place as prescribed Yes Has compression in place as prescribed Yes Has offloadiing in place as prescribed Yes Experienced any changes in pain level or No management Left Footwear Surgical Shoe with pressure relief insole Right Footwear Regular Shoe Pain Scale: 0-10 Numeric Is Patient Pain Free? Yes WC - Nurse 1 - General Ulcer Measurement Start: 11/26/24 08:08 Freq: Status: Active Protocol: Activity Type Activity Date Activity User E-sign Co-sign Detail Recorded Client Recorded Date Recorded By Document 11/26/24 08:08 NIKHIL [id number] 11/26/24 08:13 NIKHIL 11/26/24 08:08 Wound Center Nurse 1 #1 L Heel -Current Size (cm) - Length 0.8 -Current Size (cm) - Width 0.5 -Current Size (cm) - Depth 0.2 -Total Square Cm 0.40 -Date of Last Picture (Recall this 11/26/24 field) -Exudate Amt Medium -Exudate Type Serosanguineous -Wound Margin Distinct, Outline Attached -Granulation Amt Large (67-100%) -Granulation Quality [place] -Necrosis Amt Small (1-33%) -Necrotic Tissue Type Adherent Slough -Texture (Valorie-wound Skin Appearance) Assessed -Moisture (Valorie-wound Skin Appearance) Assessed -Color (Valorie-wound Skin Appearance) Assessed -Temperature (Valorie-wound Skin No Abnormality Appearance) (Pt Warm) -Tenderness on Palpation (Valorie-wound No Skin Appearance) -Ulcer Cleansing Rinsed/ Irrigated with Saline -Foul Odor after Cleansing No -Anesthetic Used 5% Lidocaine Gel WC - Nurse 2 - General Ulcer CM Notes Start: 11/26/24 08:08 Freq: Status: Active Protocol: Activity Type Activity Date Activity User E-sign Co-sign Detail Recorded Client Recorded Date Recorded By Document 11/26/24 08:24 DS [id number] 11/26/24 08:26 DS 11/26/24 08:24 Wound Center Nurse 2 -Time 08:24 -Correct Patient Yes -Correct Side, Site, Position Yes -Correct Procedure Yes -Procedure Performed Yes -Type of Procedure Debridement -Clinical Debridement Subcutaneous -Tissue Removed Subcutaneous -Post Debridement (cm) - Length 0.5 -Post Debridement (cm) - Width 0.5 -Post Debridement (cm) - Depth 0.1 -Total Square (Post) (cm) 0.25 -Area of Debridement (cm) - Length 0.5 -Area of Debridement (cm) - Width 0.5 -Total Square (Area) (cm) 0.25 -Tunneling No -Undermining/Tunneling No -Circular Undermining No -Wound/Ulcer Outcome Not Healed -Ulcer Cleansing gauze -Foul Odor after Cleansing No -Bioengineered Tissue No -Bleeding Controlled with Pressure -Treatment Response Procedure Tolerated Well -Debridement - Subq, 1st 20sq cm Yes Pain Scale: 0-10 Numeric Is Patient Pain Free? Yes - Nurse 3 - General Ulcer D/C NN Start: 11/26/24 08:08 Freq: Status: Active Protocol: Activity Type Activity Date Activity User E-sign Co-sign Detail Recorded Client Recorded Date Recorded By Document 11/26/24 08:31 KW [id number] 11/26/24 08:31 KW 11/26/24 08:31 Wound Care Center Nurse 3 #1 L Heel -Primary Dressing Applied Aquacel AG 4x4 -Primary Dressing Covered/Secured with Dry Gauze & Roll Gauze, Secured with Tape -Aquacel AG 4x4 1 LLE -Compression Wrap [place] Wrap -Other to secure Pain Scale: 0-10 Numeric Is Patient Pain Free? Yes WC - Visit Discharge Discharge Condition Stable Ambulatory Status Wheelchair Transportation Private Auto Medication Reconcilliation completed & No provided to patient/care provider Clinical Summary of Care Provided Yes Charges/Coding Procedures Integumentary [id number]: [id number] [place] subq tissue 20 sq cm/< Assessment/Plan Assessment/Plan (1) Pressure ulcer of left heel, stage 3: CODE(S): L89.623 - Pressure ulcer of left heel, stage 3 (2) Diabetic ulcer of left foot: CODE(S): E11.621 - Type 2 diabetes mellitus with foot ulcer; L97.529 - Non-pressure chronic ulcer of other part of left foot with unspecified severity QUALIFIERS: Diabetic foot ulcer location: heel Diabetes mellitus type: type 2 Non-pressure ulcer stage: with fat layer exposed Qualified Code(s): E11.621 - Type 2 diabetes mellitus with foot ulcer; L97.422 - Non-pressure chronic ulcer of left heel and midfoot with fat layer exposed (3) Diabetes mellitus: CODE(S): E11.9 - Type 2 diabetes mellitus without complications QUALIFIERS: Diabetes mellitus type: type 2 Diabetes mellitus complication status: with skin complications (4) Swelling of lower extremity: CODE(S): M79.89 - Other specified soft tissue disorders (5) Lower extremity edema: CODE(S): R60.0 - Localized edema (6) Cerebrovascular disease: CODE(S): I67.9 - Cerebrovascular disease, unspecified (7) History of cerebrovascular accident: CODE(S): Z86.73 - Personal history of transient ischemic attack (TIA), and cerebral infarction without residual deficits (8) Hypertension: CODE(S): I10 - Essential (primary) hypertension (9) Chronic renal disease: CODE(S): N18.9 - Chronic kidney disease, unspecified (10) History of toe surgery: CODE(S): Z98.890 - Other specified postprocedural states (11) History of arthroplasty of left shoulder: CODE(S): Z96.612 - Presence of left artificial shoulder joint (12) History of partial hysterectomy: CODE(S): Z90.711 - Acquired absence of uterus with remaining cervical stump (13) History of cataract surgery: CODE(S): Z98.49 - Cataract extraction status, unspecified eye (14) History of total right knee replacement: CODE(S): Z96.651 - Presence of right artificial knee joint (15) History of lumbar surgery: CODE(S): Z98.890 - Other specified postprocedural states (16) Obesity (BMI 30.0-34.9): CODE(S): E66.811 - Obesity, class 1 PLAN: Plan This is a 74-year-old obese, diabetic female who presented with an ulceration on the left posterior heel, which had been present for the better part of 1 year. The patient and her family had been using Silvadene topically prior to initial presentation. The ulceration had been noted to worsen over the 3 weeks prior to presentation. The ulceration appears to be related to pressure, as it is located at a site which would normally rest against the bed surface when she is in the recumbent position. Management recommendations have been discussed with the patient, and her family, at the bedside. Offloading measures are to be continued. The patient's family has been advised to use a rolled towel or blanket on her posterior calf to lift her posterior heel off of the bed surface. In addition, the patient's family has obtained a Podus boot, which the patient has been using for offloading purposes. The ulceration appears markedly improved, and has decreased in size significantly. The base of the ulceration is generally pink and healthy in appearance. Therefore, we are to continue the use of moistened Aquacel Ag topically, which will be applied on a daily basis. The patient's family has been instructed in the appropriate means of application. The patient has been advised to optimize her glycemic control and her nutritional intake. Glucerna has been recommended as a nutritional supplement. As has been previously documented, the patient and her family have been repeatedly urged to pursue an appointment with her primary care physician, Dr. Frank. We are informed that the patient now has an appointment which is scheduled for December 24, 2024. There are issues related to the patient's diabetes, renal function, and electrolytes for which it is felt the patient warrants evaluation by her primary care physician. 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 These vascular lab results do not appear to be a significant impediment to wound healing. The patient has been advised to elevate her lower extremities as much as possible. Elevation is to be to heart level, or higher. Elevation is to be during both daytime and nighttime hours. Prolonged idle sitting has been discouraged. Ambulation has been encouraged, although the patient is extremely limited in her capacity. A Tubigrip compression garment is to be donned on a daily basis. The patient is to return in 2 weeks for reevaluation relative to her left heel ulceration. Total time: 24 minutes
[2024-12-10 08:16] VITALS: BP 126/60; PULSE 62; RESP 18; TEMP 36.2
--- NOTE | 2024-12-11 11:57 | WC ---
PHOTO-LEFT HEEL 07/10/24
--- NOTE | 2024-12-12 17:03 | HP.PCM_ITS ---
History of Present Illness Date of Service: 12/10/24 Chief Complaint: Diabetic left foot ulceration due to pressure History of Wound: This is a 74-year-old obese, diabetic female who presented with an ulceration on her left posterior heel. According to the patient, her , and her adult daughter, the ulceration had been present for the better part of 1 year. It had waxed and waned, and had, at times, appeared to be nearly healed. Approximately 3 weeks prior to presentation, the ulceration was noted to be much worse. The ulceration started as a blister. The patient and her family had been using Silvadene topically. The patient is immobile, unable to due to a prior cerebrovascular accident. She claims to sleep in a recliner. She sits in idle fashion throughout the day. She suffers from chronic swelling and edema in her lower extremities, which is noted to be worse late in the day. She possesses graduated compression stockings, which had not been worn on a regular basis, and of a degree of compression which is not known. The patient has a history of cerebrovascular accident, renal disease, and hypertension. Her history is negative for myocardial infarction, congestive heart failure, pulmonary disease, and thyroid disease. [facility] Medical History Pressure ulcer of left heel, stage 4 Obesity (BMI 30.0-34.9) Chronic renal disease Hypertension Lower extremity edema Swelling of lower extremity History of cerebrovascular accident Cerebrovascular disease Diabetes mellitus Pressure ulcer of left heel, stage 3 Diabetic ulcer of left foot Home Medications Medication Instructions Recorded Last Taken Type atenolol 25 mg tablet 25 mg PO DAILY BP MED 05/18/20 History lisinopril 20 mg tablet 40 mg PO QHS BP MED 03/13/17 05/17/20 History pramipexole 0.5 mg tablet (Mirapex) 0.5 mg PO QHS rest less legs 03/13/17 05/17/20 History aspirin 81 mg chewable tablet 81 mg PO DAILY@0800 heal th 05/18/20 05/18/20 History maintenance furosemide 40 mg tablet 40 mg PO DAILY diuretic 04/2505/18/20 History insulin human U-100 NPH-regulr 10 units SQ DINNER diab etes 05/18/20 05/17/20 History 70-30 mix 100 unit/mL subcutaneous susp insulin human U-100 NPH-regulr 20 units SQ DAILY diabe petr 05/18/20 05/18/20 History 70-30 mix 100 unit/mL subcutaneous susp potassium chloride 10 mEq 10 meq PO DAILY supplement 0 05/18/20 05/18/20 History capsule,extended release glipizide 5 mg tablet 5 mg PO 09/04/24 Unknown His tory lorazepam 0.5 mg tablet (Ativan) 0.5 mg PO Q4H PRN anx iety 09/04/24 Unknown History metolazone 2.5 mg tablet 2.5 mg PO 09/04/24 Unknown H istory sulfamethoxazole 800 1 tab PO Q12H #28 TABLETS Unknown Rx mg-trimethoprim 160 mg tablet (Bactrim DS) metronidazole 500 mg tablet 500 mg PO Q8H Infected xavier t wound 09/24/24 Unknown Rx #30 tabs amoxicillin 500 mg-potassium 1 tab PO Q12H Wound infec tion #24 09/26/24 Unknown Rx clavulanate 125 mg tablet tabs (Augmentin) Allergy/AdvReac Type Severity Reaction Status Date / Time pravastatin AdvReac muscle and Verified 09/04/24 14:31 leg pain Surgical History History of lumbar surgery History of total right knee replacement History of cataract surgery History of partial hysterectomy History of arthroplasty of left shoulder History of toe surgery Social History Smoking Status: Never smoker Physical Exam Const alert, oriented x3 and no apparent distress Constitutional Narrative: The patient's abdomen appears to be obese. Her BMI is 33.4. She is debilitated, with limitations in mobility. General Appearance: cooperative, comfortable and well developed Orientation / Consciousness: awake and oriented to person HEENT normocephalic and head/scalp atraumatic Head and Scalp: normal to inspection, normocephalic and atraumatic Face and Sinus: normal facial exam Nose: external nose normal External Ear: external ears normal Eyes EOMs intact bilaterally General Eye: normal appearance of both eyes Resp normal respiratory effort, normal air movement, no retractions and no use of accessory muscles Effort and Inspection: able to speak in complete sentences Extremity no calf tenderness General Extremity: Negative for clubbing or cyanosis Skin Wound Narrative: Slight swelling and edema are noted in the patient's lower extremities bilaterally. The ulceration on the patient's left posterior heel appears to be essentially healed. It appears as though there has been recent epithelialization at the site of the wound. There is no sign of infection or cellulitis. There is no drainage. Neuro oriented x3 and CN's II-XII intact bilaterally Sensorium / Orientation: awake, alert, oriented to person, oriented to place and oriented to time Speech: speech normal Psych Appearance: grossly normal and appropriate Attitude: calm Activity / Motor Behavior: appropriate eye contact Speech: normal speech Mood & Affect: euthymic mood Thought Process: normal thought process Thought Content: normal thought content Attention / Concentration: attention grossly intact Debridement Note Debridement Note No debridement was completed: No debridement was completed today Post-Debridement Measurements and Additional Note: Post-Debridement Measurements/Treatment - Nurse 1 - General Ulcer Assessment Start: 11/26/24 08:08 Freq: Status: Active Protocol: NAVI Activity Type Activity Date Activity User E-sign Co-sign Detail Recorded Client Recorded Date Recorded By Document 11/26/24 08:08 [id number] 11/26/24 08:13 Document 12/10/24 08:16 RB [id number] 12/10/24 08:17 RB 11/26/24 12/10/24 08:08 08:16 - Today's Visit Information Type of service Follow-up Visit Follow-up Visit (Physician/BUCKLE SORTER (Physician/BUCKLE SORTER ) ) Arrival Mode Wheelchair Wheelchair Transfer Assistance Manual Accompanied by Patient Identification Verified (Name & Yes Yes ) Patient Requires Transmission-Based No Precautions Vital Signs Temperature (97.8 F-99.1 F) 96.9 F L 97.1 F L Temperature Source Temporal Temporal Pulse Rate (60-100) 72 62 Pulse Location Monitor Monitor Respiratory Rate (12-18) 18 18 Respiratory rate source Observation Observation Oxygen Delivery Method Room Air Blood Pressure (90/60-120/80) 123/73 H 126/60 H Blood Pressure Mean 89 82 Source Monitor Monitor Position Semi-Fowlers Semi-Fowlers Blood Pressure Location Right Arm Right Arm History Since Last Visit- (Skip if this is Patient's initial visit) Have you changed medications since your No No last visit? Any new allergies or adverse reactions No No Had a fall/change in ADL's that may No No increase risk of falls Signs or symptoms of abuse and/or No No neglect since last visit Have you been in the hospital since your No No last visit? Has dressing in place as prescribed Yes Yes Has compression in place as prescribed Yes Yes Has offloadiing in place as prescribed Yes Yes Experienced any changes in pain level or No No management Left Footwear Surgical Shoe Other Footwear with pressure (Comment) relief insole Right Footwear Regular Shoe Regular Shoe Pain Scale: 0-10 Numeric Is Patient Pain Free? Yes Yes WC - Nurse 1 - General Ulcer Measurement Start: 11/26/24 08:08 Freq: Status: Active Protocol: Activity Type Activity Date Activity User E-sign Co-sign Detail Recorded Client Recorded Date Recorded By Document 11/26/24 08:08 NIKHIL [id number] 11/26/24 08:13 JF Document 12/10/24 08:16 RB [id number] 12/10/24 08:17 RB 11/26/24 12/10/24 08:08 08:16 Wound Center Nurse 1 #1 L Heel -Combined with other wound No -Current Size (cm) - Length 0.8 0.1 -Current Size (cm) - Width 0.5 0.1 -Current Size (cm) - Depth 0.2 0.1 -Total Square Cm 0.40 0.01 -Date of Last Picture (Recall this 11/26/24 field) -Photo Taken Yes -Tunneling No -Undermining/Tunneling No -Circular Undermining No -Exudate Amt Medium None Present -Exudate Type Serosanguineous -Wound Margin Distinct, Distinct, Outline Outline Attached Attached -Granulation Amt Large (67-100%) Large (67-100%) -Granulation Quality [place]es -Slough/Fibrin Yes -Necrosis Amt Small (1-33%) Small (1-33%) -Necrotic Tissue Type Adherent Slough Adherent Slough -Structure Exposed N/A -Texture (Valorie-wound Skin Appearance) Assessed Assessed -Moisture (Valorie-wound Skin Appearance) Assessed Assessed -Color (Valorie-wound Skin Appearance) Assessed Assessed -Temperature (Valorie-wound Skin No Abnormality No Abnormality Appearance) (Pt Warm) (Pt Warm) -Tenderness on Palpation (Valorie-wound No No Skin Appearance) -Ulcer Cleansing Rinsed/ Wound Cleanser Irrigated with Saline -Foul Odor after Cleansing No No -Anesthetic Used 5% Lidocaine 5% Lidocaine Gel Gel RACHAEL - Nurse 2 - General Ulcer CM Notes Start: 11/26/24 08:08 Freq: Status: Active Protocol: Activity Type Activity Date Activity User E-sign Co-sign Detail Recorded Client Recorded Date Recorded By Document 11/26/24 08:24 DS [id number] 11/26/24 08:26 DS Document 12/10/24 08:20 BMF [id number] 12/10/24 08:27 BMF Edit Result 12/10/24 08:20 BMF (1) [id number] 12/12/24 10:01 BMF (1) #1 L Heel - Ulcer Cleansing Rinsed/Irrigated => with Saline => - Foul Odor after Cleansing No => - Bioengineered Tissue No => - Bleeding Controlled with Pressure => NA - Treatment Response Procedure => Tolerated Well => - Debridement - Open, 1st 20sq cm Yes => 11/26/24 12/10/24 08:24 08:20 Wound Center Nurse 2 #1 L Heel -Time 08: 08:21 -Correct Patient Yes -Correct Side, Site, Position Yes -Correct Procedure Yes -Procedure Performed Yes No -Type of Procedure Debridement -Clinical Debridement Subcutaneous -Tissue Removed Subcutaneous -Post Debridement (cm) - Length 0.5 0.1 -Post Debridement (cm) - Width 0.5 0.1 -Post Debridement (cm) - Depth 0.1 0.1 -Total Square (Post) (cm) 0.25 0.01 -Area of Debridement (cm) - Length 0.5 0.1 -Area of Debridement (cm) - Width 0.5 0.1 -Total Square (Area) (cm) 0.25 0.01 -Tunneling No No -Undermining/Tunneling No No -Circular Undermining No No -Wound/Ulcer Outcome Not Healed Not Healed -Ulcer Cleansing gauze -Foul Odor after Cleansing No -Bioengineered Tissue No -Bleeding Controlled with Pressure NA -Treatment Response Procedure Tolerated Well -Debridement - Subq, 1st 20sq cm Yes Pain Scale: 0-10 Numeric Is Patient Pain Free? Yes Yes RACHAEL - Nurse 3 - General Ulcer D/C NN Start: 11/26/24 08:08 Freq: Status: Active Protocol: Activity Type Activity Date Activity User E-sign Co-sign Detail Recorded Client Recorded Date Recorded By Document 11/26/24 08:31 [id number] 11/26/24 08:31 Document 12/10/24 08:37 [facility] [id number] 12/10/24 08:37 [facility] 11/26/24 12/10/24 08:31 08:37 Wound Care Center Nurse 3 #1 L Heel -Ulcer Cleansing Rinsed/ Irrigated with Saline -Foul Odor after Cleansing No -Primary Dressing Applied Aquacel AG 4x4 C Hydrogel -Other Dressing heel hat -Primary Dressing Covered/Secured with Dry Gauze & Dry Gauze & Roll Gauze, Roll Gauze, Secured with Secured with Tape Tape -Aquacel AG 4x4 1 -Hydrogel 1 LLE -Compression Wrap Santos Wrap Santos Wrap -Other to secure to secure Pain Scale: 0-10 Numeric Is Patient Pain Free? Yes Yes WC - Visit Discharge Discharge Condition Stable Stable Ambulatory Status Wheelchair Wheelchair Transportation Private Auto Private Auto Accompanied by daughter and Medication Reconcilliation completed & No provided to patient/care provider Clinical Summary of Care Provided Yes Charges/Coding Visit Charges Office Visits / Consults: [id number] OV L3 Est 20min Assessment/Plan Assessment/Plan (1) Pressure ulcer of left heel, stage 3: CODE(S): L89.623 - Pressure ulcer of left heel, stage 3 (2) Diabetic ulcer of left foot: CODE(S): E11.621 - Type 2 diabetes mellitus with foot ulcer; L97.529 - Non-pressure chronic ulcer of other part of left foot with unspecified severity QUALIFIERS: Diabetic foot ulcer location: heel Diabetes mellitus type: type 2 Non-pressure ulcer stage: with fat layer exposed Qualified Code(s): E11.621 - Type 2 diabetes mellitus with foot ulcer; L97.422 - Non- pressure chronic ulcer of left heel and midfoot with fat layer exposed (3) Diabetes mellitus: CODE(S): E11.9 - Type 2 diabetes mellitus without complications QUALIFIERS: Diabetes mellitus type: type 2 Diabetes mellitus complication status: with skin complications (4) Swelling of lower extremity: CODE(S): M79.89 - Other specified soft tissue disorders (5) Lower extremity edema: CODE(S): R60.0 - Localized edema (6) Cerebrovascular disease: CODE(S): I67.9 - Cerebrovascular disease, unspecified (7) History of cerebrovascular accident: CODE(S): Z86.73 - Personal history of transient ischemic attack (TIA), and cerebral infarction without residual deficits (8) Hypertension: CODE(S): I10 - Essential (primary) hypertension (9) Chronic renal disease: CODE(S): N18.9 - Chronic kidney disease, unspecified (10) History of toe surgery: CODE(S): Z98.890 - Other specified postprocedural states (11) History of arthroplasty of left shoulder: CODE(S): Z96.612 - Presence of left artificial shoulder joint (12) History of partial hysterectomy: CODE(S): Z90.711 - Acquired absence of uterus with remaining cervical stump (13) History of cataract surgery: CODE(S): Z98.49 - Cataract extraction status, unspecified eye (14) History of total right knee replacement: CODE(S): Z96.651 - Presence of right artificial knee joint (15) History of lumbar surgery: CODE(S): Z98.890 - Other specified postprocedural states (16) Obesity (BMI 30.0-34.9): CODE(S): E66.811 - Obesity, class 1 PLAN: Plan This is a 74-year-old obese, diabetic female who presented with an ulceration on the left posterior heel, which had been present for the better part of 1 year. The patient and her family had been using Silvadene topically prior to initial presentation. The ulceration had been noted to worsen over the 3 weeks prior to presentation. The ulceration appears to be related to pressure, as it is located at a site which would normally rest against the bed surface when she is in the recumbent position. As of this visit, the ulceration appears to be completely healed and epithelialized, though the epithelialization appears to be quite recent, and it appears a bit friable. Therefore, management recommendations have been discussed with the patient, and her family, at the bedside. Offloading measures are to be continued. The patient's family has been advised to use a rolled towel or blanket on her posterior calf to lift her posterior heel off of the bed surface. In addition, the patient's family has obtained a Podus boot, which the patient has been using for offloading purposes. The patient and her family have been instructed to apply collagen hydrogel topically to the site on a daily basis. They will also pad and protect using gauze. The patient has been advised to optimize her glycemic control and her nutritional intake. Glucerna has been recommended as a nutritional supplement. The patient has been advised to elevate her lower extremities as much as possible. Elevation is to be to heart level, or higher. Elevation is to be during both daytime and nighttime hours. Prolonged idle sitting has been discouraged. Ambulation has been encouraged, although the patient is extremely limited in her capacity. A Tubigrip compression garment is to be donned on a daily basis. The patient is to return in 2 weeks for reevaluation relative to her left heel ulceration, to assure that it remains healed. Total time: 22 minutes
== END 2024-12-22 23:59 | disposition home or self-care (01) ==
LOC: WC 08:00
PROVIDERS: PCP Family Medicine; Referring Provider Family Medicine; Visit Provider Surgery
DX: L89.623 Pressure ulcer of left heel, stage 3 (principal); E11.621 Type 2 diabetes mellitus with foot ulcer; E11.22 Type 2 diabetes mellitus with diabetic chronic kidney disease; Z79.84 Long term (current) use of oral hypoglycemic drugs; I12.9 Hypertensive chronic kidney disease with stage 1 through stage 4 chronic kidney disease, or unspecified chronic kidney disease; R60.0 Localized edema; Z68.33 Body mass index [BMI] 33.0-33.9, adult; N18.9 Chronic kidney disease, unspecified; E66.811 Obesity, class 1
CPT/HCPCS: 11042; 97597; 99213; G0463